=== PATIENT | female | born 1980 | race Caucasian/White ===

== ENCOUNTER 2017-08-26 12:00 | Outpatient (RCR) | payer OTHER, SELFPAY ==
--- NOTE | 2017-08-26 13:49 | HP.PTEVAL_ITS ---
Patient's Visit Information STEFFANY SMITH is a 36 year old F referred to Physical Therapy by Jaret Majano with a diagnosis of Foot. Date of Evaluation: 08/26/17 Physical Therapist: Jaylene Tenorio - Visit Plan Frequency: 1x/Week Duration: 4 Weeks Plan: Orthotics - Subjective Subjective: Bilateral foot pain for 1 year- both feet are the same. Has worn over the counter orthotics but never had them custom made. Pain is mostly in the heel on the bottom. Pain is walking, running and working. 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 Wears [place] and [place] running shoes. Runs 4 days a week 6 miles at a time. Changes shoes 1x a year. Road running mostly. Worst: 5/10 Best: 0/10 Eases: morning after she has been off her feet all day. Is not dong any strength training just running. Here today just for orthotics. pmhx: none Meds: none. Has had x-rays of the feet. - Objective Posture: FH, RS- can correct with VC's. Gait: no deviation but does have increase pronation. SLS: 30 sec no LOB but does have increased muscle activation. HR/TR: WNL. ROM: WNL. Strength: Core: fair, Hip: 4-/5 throughout , Knee: 5/5, Ankle: 5/5 - Goals Goal 1:: Patient will be I with HEP and progression Goal Time Frame: 4-6 Weeks Goal 2:: Patient will demo 4+/5 in her hips with HEP Goal Time Frame: 4-6 Weeks Goal 3:: Patient will be fit with appropriate orthotics Goal Time Frame: 4-6 Weeks - Rehabilitation Potential Physical Therapy Diagnosis: Patient presents with hypomobility- she has decreased hip/core strength and pes planus Rehabilitation Potential: Good - Anticipated Interventions Patient/Client Instruction: Educate patient on: Benefits of Fitness Program For the Purpose of:: To increase tolerance to activity/condition/position Therapeutic Exercise to Include: Strength training, Endurance training, Balance training, Agility training, Body mechanics, Postural training, Flexibilty training, Gait and locomotor training, Dynamic Lumbar Stabilization, Scapular Strength/Stabilization For the Purpose of:: To improve muscle performance and motor function Orthotics: Shoe insert Thank you for the opportunity to evaluate your patient. For Medicare and Medicare HMO plans, please review the plan of care and approve it. It will need to be FAXED BACK to us at [phone] for Medicare purposes. Please let me know if there are questions or concerns regarding this plan of care. Physician Signature: Date:
--- NOTE | 2018-02-23 14:57 | HP.PT.NRP ---
HP - Discharge Summary (1) - Patient Information STEFFANY SMITH was seen in my office for initial evaluation on 08/26/17. The following Plan of Care was established for this patient: Initial Frequency: 1x/Week Initial Duration: 4 Weeks - Anticipated Interventions Patient/Client Instruction: Educate patient on: Benefits of Fitness Program For the Purpose of:: To increase tolerance to activity/condition/position Therapeutic Exercise to Include: Strength training, Endurance training, Balance training, Agility training, Body mechanics, Postural training, Flexibilty training, Gait and locomotor training, Dynamic Lumbar Stabilization, Scapular Strength/Stabilization For the Purpose of:: To improve muscle performance and motor function Orthotics: Shoe insert This patient was last seen in our office . Pertinent comments regarding their Physical therapy will appear below: Pt was last seen on the date of 08/26/17 for the fitting of her orthotics. Pt has not returned through todays date, and is therefore discharged at this time. At this point I will be discontinuing this patient from physical therapy. I would be happy to see this patient again in the future if found appropriate by the physician. Thank you! Jose G Kapoor, PT,
== END 2017-09-30 19:00 | disposition home or self-care (01) ==
LOC: PT 13:09
PROVIDERS: Family Provider Student in an Organized Health Care Education/Training Program; PCP Student in an Organized Health Care Education/Training Program; Visit Provider Internal Medicine
DX: M72.2 Plantar fascial fibromatosis (principal); M21.41 Flat foot [pes planus] (acquired), right foot; M21.42 Flat foot [pes planus] (acquired), left foot
CPT/HCPCS: 97110; 97161; 97760; 97762

== ENCOUNTER → 2018-02-28 14:34 | Outpatient (CLI) | payer OTHER, SELFPAY ==
[2018-02-28 16:40] LABS: Absolute Lymphocyte Count 1.47 X10^3/ul (0.83-4.51); Absolute Neutrophil Count 4.3 X10^3/uL (2.0-7.7); Basophil# 0.02 X10^3/uL; Basophil% 0.3 % (0-1); Eosinophil# 0.05 X10^3/uL; Eosinophils% 0.8 % (0-5); Hematocrit 39.3 % (37-47); Hemoglobin 13.2 g/dl (12.0-15.0); Lymphocyte # 1.47 X10^3/ul (4.0); Lymphocyte % 23.9 % (19-41); Mean Corp Hgb Conc 33.6 g/gl (32-36); Mean Corpuscular Hgb 29.5 pg (27.0-32.0); Mean Corpuscular Volume 87.9 fL (81-99); Mean Platelet Vol. 11.2 fl (6.2-12.0); Monocyte# 0.28 X10^3/uL; Monocyte% 4.6 % (0-10); Neutrophil # 4.32 X10^3/uL (2.7-7.7); Neutrophil % 70.2 % (47-70); Platelet Count 177 K/mm3 (150-450); RBC Distribution Width CV 12.6 % (11.6-14.6); RBC Distribution Width SD 39.5 fl (35.1-43.9); Red Blood Count 4.47 M/mm3 (4.2-5.4); White Blood Count 6.2 K/mm3 (4.4-11.0)
[2018-02-28 16:58] LABS: POSITIVE COUNT NO; POSITIVE DIFFERENTIAL NO; POSITIVE MORPHOLOGY NO
[2018-02-28 17:23] LABS: T4 Free Direct 0.96 ng/dL (0.76-1.46); Thyroid Stim Hormone (TSH) 1.16 uIU/mL (0.358-3.74)
[2018-02-28 17:26] LABS: T3 Total - Triiodothyronine 0.98 ng/mL (0.6-1.81)
[2018-03-01 06:41] LABS: ALB/GLOB Ratio 1.5 RATIO (0.9-2.4); AST(SGOT) 13 U/L (15-37); Alanine Aminotransfer ALT/SGPT 16 U/L (13-56); Albumin, Serum 4.6 g/dL (3.2-5.0); Alkaline Phosphatase 52 U/L (45-117); Anion Gap 8 (5-15); BUN 10 mg/dL (7-18); BUN/Creat Ratio 15.3 RATIO (10-20); Calcium,Total 9.1 mg/dL (8.5-10.1); Chloride 102 mmol/L (98-107); Creatinine, Serum 0.65 mg/dL (0.55-1.02); EST Glomerular Filtration Rate 109 mL/min (>60); Est Glom Filt Rate - Afr Amer 132 mL/min (>60); Globulin 3.1 g/dL (2.2-4.2); Glucose 99 mg/dL (74-106); Potassium 3.8 mmol/L (3.5-5.1); Protein, Total 7.7 g/dL (6.4-8.2); Sodium Level 139 mmol/L (136-145)
== END ==
PROVIDERS: Family Provider Student in an Organized Health Care Education/Training Program; PCP Student in an Organized Health Care Education/Training Program
DX: G56.03 Carpal tunnel syndrome, bilateral upper limbs (principal); R07.9 Chest pain, unspecified; R00.2 Palpitations; E04.1 Nontoxic single thyroid nodule
CPT/HCPCS: 36415; 80053; 84439; 84443; 84480; 85025

== ENCOUNTER → 2018-03-02 11:38 | Outpatient (CLI) | payer OTHER, SELFPAY | PROVIDERS: Family Provider Student in an Organized Health Care Education/Training Program; PCP Student in an Organized Health Care Education/Training Program | DX: R07.9 Chest pain, unspecified (principal); R94.31 Abnormal electrocardiogram [ECG] [EKG]; I44.0 Atrioventricular block, first degree; I34.1 Nonrheumatic mitral (valve) prolapse; R00.2 Palpitations | CPT/HCPCS: 93225; 93226 ==

== ENCOUNTER → 2018-04-29 11:07 | Outpatient (CLI) | payer OTHER, SELFPAY ==
--- NOTE | 2018-04-29 11:07 | DT_ITS ---
This patient was seen during an EMR downtime April 25, 2018 - May 02, 2018. This patient may have a combination of paper and electronic documentation or all paper documentation. All documentation is viewable within the e-chart portion of [facility] for each patient visit.
--- NOTE | 2018-04-29 11:09 | ECHOD_ITS ---
Reason For Study: Murmur Procedure This was a 2D Doppler, Color Flow transthoracic echocardiogram. Exam performed in department. Left Ventricle Normal LV size. Left ventricular systolic function is normal. The estimated ejection fraction is 55 %. No evidence for diastolic dysfunction. No regional wall motion abnormalities noted. Right Ventricle Normal RV size. Normal systolic function. Atria Normal left atrium. Normal right atrium. Mitral Valve Normal mitral valve. Trivial eccentric mitral valve insufficiency. Tricuspid Valve Normal tricuspid valve. Mild tricuspid valve insufficiency. Aortic Valve Normal aortic valve. Trisinus/trileaflet aortic valve. Pulmonic Valve Normal pulmonic valve. Great Vessels Normal aortic root. The pulmonary artery is normal size. Normal inferior vena cava. Pericardium/Pleural No pericardial effusion. MMode/2D Measurements & Calculations LVIDd: 4.5 cm IVSd: 0.69 cm Ao root diam: 3.3 cm LVIDs: 3.2 cm LVPWd: 0.84 cm LA dimension: 3.1 cm RVDd: 3.7 cm FS: 28.6 % LAV(MOD-bp): 48.9 ml LA A4 area: 16.7 cm2 RA A4 area: 16.2 cm2 LAV(MOD-bp) Indexed: 29.1 ml/m2 LAV(MOD-sp2): 52.4 ml LAV(MOD-sp4): 44.6 ml Time Measurements MV dec time: 0.20 sec Doppler Measurements & Calculations MV E max yobany: 82.2 cm/sec Lat Peak E' Yobany: 13.2 cm/sec Med Peak E' Yobany: 9.5 cm/sec MV A max yobany: 65.4 cm/sec E/E' lat: 6.2 E/E' med: 8.7 MV E/A: 1.3 MV V2 max: 90.7 cm/sec Ao V2 max: 107.7 cm/sec LV V1 max: 98.9 cm/sec MV max P.3 mmHg Ao max P.6 mmHg LV V1 max P.9 mmHg MV V2 mean: 54.3 cm/sec MV mean P.4 mmHg MV V2 VTI: 22.9 cm PA V2 max: 100.0 cm/sec TR max yobany: 212.0 cm/sec TR max P.0 mmHg Interpretation Summary Normal LV size. Left ventricular systolic function is normal. The estimated ejection fraction is 55 %. No evidence for diastolic dysfunction. Trivial eccentric mitral valve insufficiency. Ordering Physician: Jesus Galvan Referring Physician: Wilmar Brown Performed By: Ethan Espinosa RCS
== END ==
PROVIDERS: Family Provider Student in an Organized Health Care Education/Training Program; PCP Student in an Organized Health Care Education/Training Program; Visit Provider Internal Medicine Cardiovascular Disease
DX: I34.1 Nonrheumatic mitral (valve) prolapse (principal)
CPT/HCPCS: 93306

== ENCOUNTER 2018-09-05 13:30 | Outpatient (RCR) | payer OTHER, SELFPAY ==
--- NOTE | 2017-12-22 14:52 | MASS.EVAL ---
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 She was referred by Dr. Brown with a diagnosis of migraines and neck muscle spasms. She presents today with symptoms of tension and aching through the neck and shoulders. She reports an increase in headaches the last few weeks. She lists no medications Goals: Decrease muscle pain and tension Decrease frequency and intensity of migraines and headaches Relaxation Treatment consisted of a one hour deep tissue massage to the upper body focusing on the neck and shoulders. She had very high tension throughout. The scalp muscles were very ropy, especially temporalis. Knots present in trapezius and rhomboids. The patient responds well to massotherapy. There was a decrease in muscle tension after treatment. I plan on seeing her one time a month or on an as needed basis for a total of 10 one hour sessions of kelly throught 2018. Jenny Daniels. T
--- NOTE | 2018-04-27 12:15 | DT_ITS ---
This patient was seen during an EMR downtime April 25, 2018 - May 02, 2018. This patient may have a combination of paper and electronic documentation or all paper documentation. All documentation is viewable within the e-chart portion of [facility] for each patient visit.
--- NOTE | 2018-11-10 11:42 | MASS.DISCH ---
Massage Therapy Discharge Summary: Initial Evaluation: 12/22/2017 Diagnosis: Migraines No. of Visits: Date of last visit: 09/05/2018 Goals: Decerased frequency and intensity of migraines This patient is being discharged from our care at the [facility]. Thank you, Jenny Daniels LMT
== END 2018-09-05 19:00 | disposition home or self-care (01) ==
LOC: MASS 13:30
PROVIDERS: Family Provider Student in an Organized Health Care Education/Training Program; PCP Student in an Organized Health Care Education/Training Program; Visit Provider Student in an Organized Health Care Education/Training Program
DX: G43.119 Migraine with aura, intractable, without status migrainosus (principal); M62.838 Other muscle spasm
CPT/HCPCS: 97124

== ENCOUNTER → 2019-07-26 12:17 | Outpatient (CLI) | payer OTHER, SELFPAY ==
[2018-11-03 13:42] VITALS: BMI 23.8
[2019-07-26 12:40] LABS: Bacteria 0 SEEN /hpf (None Seen); Mucous, Urine 0 SEEN /hpf (<or=2+); Red Blood Cells-Urine 0 SEEN /hpf (0-5)
[2019-07-26 13:28] LABS: Color, Urine Yellow (Yellow); Glucose, Dipstick Normal (Normal); Ketone-Dipstick 5 mg/dl (Negative); Leukocyte Esterase-Dipstick Negative /ul (Negative); Nitrite-Dipstick Negative (Negative); Occult Blood-Urine 50 /ul (Negative); Protein-Dipstick Negative (Negative); Urine Bilirubin Dipstick Negative (Negative); Urine Clarity Clear (Clear); Urine Urobilinogen Normal (Normal)
[2019-07-26 13:34] LABS: Squamous Epithelial Cells - UA 0-5 SEEN /hpf (5-10)
[2019-07-26 13:35] LABS: White Blood Cells 0-5 SEEN /hpf (0-5)
[2019-07-26 13:57] LABS: Microalbumin,Random Urine < 5.0 mg/L (NO RANGE EST.)
[2019-07-26 14:03] LABS: Free T3 2.6 pg/mL (2.18-3.98); T4 Free Direct 0.98 ng/dL (0.76-1.46); Thyroid Stim Hormone (TSH) 0.86 uIU/mL (0.358-3.74)
[2019-07-27 20:07] LABS: Albumin 4.1 g/dL (2.9-4.4); Alpha-1-Globulins 0.2 g/dL (0.0-0.4); Alpha-2-Globulins 0.7 g/dL (0.4-1.0); Immunoglobulin G 882 mg/dL (700-1600); Immunoglobulin M 49 mg/dL (26-217); PROEL- TOTAL PROTEIN 7.1 g/dL (6.0-8.5)
[2019-07-28 12:28] LABS: Immunoglobulin A 41 mg/dL (87-352)
[2019-07-28 12:29] LABS: Thyroid Peroxidase AB 8 IU/mL (0-34)
== END ==
PROVIDERS: Family Provider Student in an Organized Health Care Education/Training Program; PCP Student in an Organized Health Care Education/Training Program; Referring Provider Student in an Organized Health Care Education/Training Program; Visit Provider Student in an Organized Health Care Education/Training Program
DX: R63.5 Abnormal weight gain (principal); D72.818 Other decreased white blood cell count
CPT/HCPCS: 36415; 81001; 82043; 82570; 82784; 84165; 84439; 84443; 84481; 86334; 86376

== ENCOUNTER → 2019-10-05 12:42 | Outpatient (CLI) | payer OTHER, SELFPAY ==
[2018-11-03 13:42] VITALS: BMI 23.8
--- NOTE | 2019-10-05 12:44 | BI_ITS ---
MAMMOGRAPHY - BILATERAL SCREENING REASON FOR EXAM: Female, 38 years old. Routine annual screening examination. PERTINENT HISTORY: Mother with breast cancer. TECHNIQUE: Digital bilateral breast kev (3D mammographic acquisition) in the CC and MLO projections. 2-D mediolateral oblique (MLO) and craniocaudad (CC) views of both breasts were obtained. CAD: Full Field Digital Mammography with Computer Added Detection was performed. COMPARISON: None. Baseline examination. FINDINGS: Breast Composition: The breasts are extremely dense, which lowers the sensitivity of mammography. There are no dominant masses or suspicious calcifications. No other significant abnormalities are identified. BI/SCREEN MAMM (CAD) W/KEV BILAT IMPRESSION: Negative screening mammogram. Yearly followup mammogram recommended. (A) ASSESSMENT CATEGORY: BIRADS Category 1: Negative. A letter regarding these results will be sent to the patient by the facility within 30 days. Approximately 10% of breast cancers are not detected by mammography. A normal mammogram should not delay biopsy of a clinically suspicious abnormality. [id number] Electronically Signed: Jarrell Presley, at 14:08 EST , Service support ,
== END ==
PROVIDERS: Family Provider Student in an Organized Health Care Education/Training Program; PCP Student in an Organized Health Care Education/Training Program; Referring Provider Student in an Organized Health Care Education/Training Program; Visit Provider Student in an Organized Health Care Education/Training Program
DX: Z12.31 Encounter for screening mammogram for malignant neoplasm of breast (principal); Z80.3 Family history of malignant neoplasm of breast
CPT/HCPCS: 77063; 77067

== ENCOUNTER → 2019-10-05 15:20 | Outpatient (CLI) | payer OTHER, SELFPAY ==
[2018-11-03 13:42] VITALS: BMI 23.8
--- NOTE | 2019-10-05 15:22 | RAD_ITS ---
STUDY: X-RAY - LEFT FOOT CLINICAL: Female, 38 years old. Pain in the arch region. TECHNIQUE: 3 view(s) of the foot. COMPARISON: None. FINDINGS: There is a plantar calcaneal spur otherwise normal talus, calcaneus, and tarsal bones. Normal visualized subtalar, talonavicular, calcaneocuboid, tarsal and tarsometatarsal articulations. Normal metatarsi. Normal metatarsophalangeal joint of the great toe. Normal tibial and fibular sesamoid bones. Normal interphalangeal joint of the great toe. Normal phalanges of the great toe. Normal second through fifth metatarsophalangeal joints. Normal interphalangeal joints and phalanges of the lesser toes. The soft tissue structures are unremarkable. There is no demonstrated fracture. RAD/Foot min 3 Views IMPRESSION: Plantar calcaneal spur, otherwise normal x-ray examination of the foot. Electronically Signed: Kelly Johnson MD at 3:05 EST , Service support ,
--- NOTE | 2019-10-05 15:22 | RAD_ITS ---
STUDY: X-RAY - RIGHT FOOT CLINICAL: Female, 38 years old. Pain in the arch area. TECHNIQUE: 3 view(s) of the foot. COMPARISON: None. FINDINGS: Normal talus, calcaneus, and tarsal bones. Normal visualized subtalar, talonavicular, calcaneocuboid, tarsal and tarsometatarsal articulations. Normal metatarsi. Normal metatarsophalangeal joint of the great toe. Normal tibial and fibular sesamoid bones. Normal interphalangeal joint of the great toe. Normal phalanges of the great toe. Normal second through fifth metatarsophalangeal joints. Normal interphalangeal joints and phalanges of the lesser toes. The soft tissue structures are unremarkable. There is no demonstrated fracture. RAD/Foot min 3 Views IMPRESSION: Unremarkable x-ray examination of the foot. Electronically Signed: Kelly Johnson MD at 3:06 EST , Service support ,
== END ==
PROVIDERS: Family Provider Student in an Organized Health Care Education/Training Program; PCP Student in an Organized Health Care Education/Training Program; Referring Provider Podiatrist; Visit Provider Podiatrist
DX: M72.2 Plantar fascial fibromatosis (principal); M79.671 Pain in right foot; M79.672 Pain in left foot
CPT/HCPCS: 73630

== ENCOUNTER 2019-11-02 11:45 | Outpatient (RCR) | payer OTHER, SELFPAY ==
--- NOTE | 2018-12-19 15:11 | MASS.EVAL ---
Massage Therapy Evaluation: Initial Evaluation Date: 12/19/2018 /Age: 12 1980, 38 Diagnosis: Migraines Medications: None Goals: Decrease frequency and intensity of migraines and headaches Decrease neck and shoulder tenision Promote relaxation Plan: To be seen one time per month or PRN for a total of 10 visits
--- NOTE | 2019-11-08 06:57 | DS.PCM_ITS ---
Massage Therapy Discharge Summary: Initial Evaluation Date: 12/19/2018 Diagnosis: Migraines No. of Visits: Date of last visit: 11/02/2019 Goals: Decreased frequency and intensity of migraines and decreased neck tension achieved. This patient is being discharged from our care at the [facility]. Thank you, Jenny Daniels LMT
== END 2019-11-02 19:00 | disposition home or self-care (01) ==
LOC: MASS 11:45
PROVIDERS: Family Provider Student in an Organized Health Care Education/Training Program; PCP Student in an Organized Health Care Education/Training Program; Referring Provider Student in an Organized Health Care Education/Training Program; Visit Provider Student in an Organized Health Care Education/Training Program
DX: G43.119 Migraine with aura, intractable, without status migrainosus (principal)
CPT/HCPCS: 97124

== ENCOUNTER → 2020-01-31 12:41 | Outpatient (CLI) | payer OTHER, SELFPAY ==
[2018-11-03 13:42] VITALS: BMI 23.8
--- NOTE | 2020-01-31 12:47 | MRI_ITS ---
STUDY: MRI BRAIN WITH AND WITHOUT CONTRAST REASON FOR EXAM: Female, 39 years old. H/A, fatigue, bilat hand weakness TECHNIQUE: Standardized multiplanar fat and water weighted pulse sequences were obtained. IV Dotarem 12 ml was administered for the contrast portion of the examination. COMPARISON: None. FINDINGS: Normal size of the ventricles and extra-axial spaces for the patient''s age. Normal white matter tracts of the supratentorial brain. There is no evidence for recent intracranial ischemia or other cause of cytotoxic edema on diffusion weighted imaging (DWI). Normal T2* images of the brain without demonstrated susceptibility artifact. There is no demonstrated hemosiderin stain. There are no white matter hyperintensities. Specifically, there are no focal areas of white matter gliosis which are occasionally associated with vasospastic migraine headaches. Normal bilateral basal ganglia. Normal thalami. There is no extra-axial fluid accumulation. Normal flow voids within the major intracranial circulation suggesting patency by spin echo criteria. Normal venous enhancement. There is no enhancing intra-axial or extra-axial abnormality. Normal sella turcica, pituitary gland, infundibular stalk, optic chiasm and hypothalamus. Normal tectal plate and pineal gland. Normal midbrain, payal and medulla. Normal cerebellum. Normal basal cisterns. Normal bilateral temporal bones. Normal bilateral internal auditory canals. No demonstrated orbital abnormality, within the constraints of a routine brain study. Normal visualized paranasal sinuses. Normal calvarium and skull base. Normal visualized soft tissue structures. Normal visualized upper cervical spine. MRI/Brain W/WO Contrast IMPRESSION: Normal unenhanced and enhanced MRI of the brain. Electronically Signed: Dragan Weiss DO at 14:36 EDT Tel , Service support ,
== END ==
PROVIDERS: PCP Student in an Organized Health Care Education/Training Program; Referring Provider Student in an Organized Health Care Education/Training Program; Visit Provider Student in an Organized Health Care Education/Training Program
DX: G44.89 Other headache syndrome (principal); R53.81 Other malaise; R29.898 Other symptoms and signs involving the musculoskeletal system; H53.9 Unspecified visual disturbance; R41.89 Other symptoms and signs involving cognitive functions and awareness
CPT/HCPCS: 70553; A9575

== ENCOUNTER → 2020-02-06 09:08 | Outpatient (CLI) | payer OTHER, SELFPAY ==
[2018-11-03 13:42] VITALS: BMI 23.8
[2020-02-06 10:26] LABS: Absolute Lymphocyte Count 1.64 X10^3/uL (0.83-4.51); Absolute Neutrophil Count 2.2 X10^3/uL (2.0-7.7); Basophil# 0.05 X10^3/uL; Basophil% 1.2 % (0-1); Eosinophils% 4.6 % (0-5); Hematocrit 38.8 % (37-47); Lymphocyte # 1.64 X10^3/ul (4.0); Lymphocyte % 37.9 % (19-41); Mean Corp Hgb Conc 33.5 g/dL (32-36); Mean Corpuscular Volume 89.6 fL (81-99); Mean Platelet Vol. 11.1 fl (6.2-12.0); Monocyte# 0.27 X10^3/uL; Monocyte% 6.2 % (0-10); NRBC Flagged by Analyzer 0 % (0-5); Neutrophil # 2.16 X10^3/uL (2.7-7.7); Neutrophil % 49.9 % (47-70); Platelet Count 188 K/mm3 (150-450); RBC Distribution Width CV 12.7 % (11.6-14.6); Red Blood Count 4.33 M/mm3 (4.2-5.4); White Blood Count 4.3 K/mm3 (4.4-11.0)
[2020-02-06 10:59] LABS: Vitamin B12 659 pg/mL (211-911); Vitamin D,25 Hydroxy 25.2 ng/mL
[2020-02-06 11:15] LABS: ALB/GLOB Ratio 1.4 RATIO (0.9-2.4); AST(SGOT) 15 U/L (15-37); Alanine Aminotransfer ALT/SGPT 24 U/L (13-56); Albumin, Serum 4.4 g/dL (3.2-5.0); Alkaline Phosphatase 59 U/L (45-117); Anion Gap 6 (5-15); BUN 17 mg/dL (7-18); BUN/Creat Ratio 23.7 RATIO (10-20); CPK Total, Creatine Kinase 85 U/L (26-192); Calcium,Total 9.2 mg/dL (8.5-10.1); Chloride 107 mmol/L (98-107); Creatinine, Serum 0.72 mg/dL (0.55-1.02); EST Glomerular Filtration Rate 97 mL/min (>60); Est Glom Filt Rate - Afr Amer 117 mL/min (>60); Free T3 3.3 pg/mL (2.18-3.98); Globulin 3.1 g/dL (2.2-4.2); Glucose 108 mg/dL (74-106); Potassium 4.1 mmol/L (3.5-5.1); Protein, Total 7.5 g/dL (6.4-8.2); Sodium Level 138 mmol/L (136-145); T4 Free Direct 0.88 ng/dL (0.76-1.46); Thyroid Stim Hormone (TSH) 1.52 uIU/mL (0.358-3.74)
[2020-02-07 14:07] LABS: RNP Ab <0.2 AI (0.0-0.9)
[2020-02-07 17:44] LABS: Smith Ab <0.2 AI (0.0-0.9)
== END ==
LOC: LAB.FUTURE 09:14 → LAB 02-07 06:08
PROVIDERS: PCP Student in an Organized Health Care Education/Training Program; Referring Provider Student in an Organized Health Care Education/Training Program; Visit Provider Student in an Organized Health Care Education/Training Program
DX: L67.8 Other hair color and hair shaft abnormalities (principal); M25.50 Pain in unspecified joint; Z82.0 Family history of epilepsy and other diseases of the nervous system
CPT/HCPCS: 36415; 80053; 82306; 82550; 82607; 84439; 84443; 84481; 85025; 86235

== ENCOUNTER 2020-09-18 13:30 | Outpatient (RCR) | payer OTHER, SELFPAY ==
[2018-11-03 13:42] VITALS: BMI 23.8
--- NOTE | 2019-12-20 14:46 | MASS.EVAL ---
Massage Therapy Evaluation: Initial Evaluation Date: 12/20/2019 /Age: 12 1980, 39 Diagnosis: Migraines Goals: Decrease frequency and intensity of migraines Decrease muscle pain and tension Decrease stress Assessment: This patient is a good candidate for massage. We have had success controlling her symptoms in the past. Plan: To be seen one time per month or PRN
--- NOTE | 2020-11-13 14:03 | DS.PCM_ITS ---
Massage Therapy Discharge Summary: Initial Evaluation Date: 12/20/2019 Diagnosis: Migraines No. of Visits: 7 Date of last visit: 09/18/2020 This patient is being discharged from our care at the [facility]. Thank you, Jenny Daniels LMT
== END 2020-09-18 19:00 | disposition home or self-care (01) ==
LOC: MASS 13:30
PROVIDERS: Family Provider Student in an Organized Health Care Education/Training Program; PCP Student in an Organized Health Care Education/Training Program; Referring Provider Student in an Organized Health Care Education/Training Program; Visit Provider Student in an Organized Health Care Education/Training Program
DX: G43.819 Other migraine, intractable, without status migrainosus (principal)
CPT/HCPCS: 97124

== ENCOUNTER → 2020-12-26 13:10 | Outpatient (CLI) | payer OTHER, SELFPAY ==
[2018-11-03 13:42] VITALS: BMI 23.8
--- NOTE | 2020-12-26 13:16 | RAD_ITS ---
STUDY: X-RAY - RIGHT FOOT CLINICAL: Female, 40 years old. Arch of foot pain for one year. TECHNIQUE: 3 view(s) of the foot. COMPARISON: None. FINDINGS: Inferior calcaneal spur. Normal visualized subtalar, talonavicular, calcaneocuboid, tarsal and tarsometatarsal articulations. Normal metatarsi. Mild arthrosis of the first MTP joint Normal tibial and fibular sesamoid bones. Normal interphalangeal joint of the great toe. Normal phalanges of the great toe. Normal second through fifth metatarsophalangeal joints. Normal interphalangeal joints and phalanges of the lesser toes. The soft tissue structures are unremarkable. 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 No other abnormality. Electronically Signed: Varun Hooper MD at 13:41 EST , Service support ,
--- NOTE | 2020-12-26 13:16 | RAD_ITS ---
STUDY: X-RAY - LEFT FOOT CLINICAL: Female, 40 years old. Arch of foot pain for one year. TECHNIQUE: 3 view(s) of the foot. COMPARISON: None. FINDINGS: Inferior calcaneal spur. Normal visualized subtalar, talonavicular, calcaneocuboid, tarsal and tarsometatarsal articulations. Normal metatarsi. Mild arthrosis of the first MTP joint Normal tibial and fibular sesamoid bones. Normal interphalangeal joint of the great toe. Normal phalanges of the great toe. Normal second through fifth metatarsophalangeal joints. Normal interphalangeal joints and phalanges of the lesser toes. The soft tissue structures are unremarkable. 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 No other abnormality. Electronically Signed: Varun Hooper MD at 13:41 EST , Service support ,
== END ==
PROVIDERS: PCP Student in an Organized Health Care Education/Training Program; Referring Provider Podiatrist; Visit Provider Podiatrist
DX: M19.072 Primary osteoarthritis, left ankle and foot (principal); M19.071 Primary osteoarthritis, right ankle and foot; M77.32 Calcaneal spur, left foot; M77.31 Calcaneal spur, right foot
CPT/HCPCS: 73630

== ENCOUNTER → 2021-02-10 12:29 | Outpatient (CLI) | payer OTHER, SELFPAY ==
[2021-01-23 11:56] VITALS: BMI 21.4
--- NOTE | 2021-02-10 12:33 | STE_ITS ---
Reason For Study: CHEST PAIN Stress Results Protocol: Cr Protocol Maximum Predicted HR: 182 bpm Target HR: 155 bpm % Maximum Predicted HR: 95 % DurationHeart Rate Stage (mm:ss) (bpm) BP BASELINE 73 108/70 STAGE 1 3:00 113 122/70 STAGE 2 3:00 141 150/86 STAGE 3 3:00 150 142/78 STAGE 4 3:00 162 150/74 STAGE 5 1:00 173 / RECOVERY 112 110/80 Stress Duration: 13:00 mm:ss Maximum Stress HR: 173 bpm Baseline Echocardiogram Findings Stress Echo Wall motion Data Resting WM Intermediate WM Stress WM Interpretation Summary Stress echocardiogram. 40-year-old lady with a history of palpitations. Stress protocol: Resting EKG demonstrates normal sinus rhythm with a rate of 74 bpm normal intervals are noted resting blood pressure is 180/70 mmHg. The patient exercised according to regular Cr protocol for a total duration of 13 minutes. Patient completed 1 minute into stage V of the Cr protocol. The maximum heart rate attained was 176 bpm which was 96% of max impacted heart rate the maximum workload was 17.2 metabolic equivalents. At rest there were no ST or T wave changes noted to suggest ischemia at peak exercise nonspecific ST changes were noted. This did not meet the criteria for ischemia. The peak blood pressure was 150/86 mmHg which was a good blood pressure response to exercise. No clinical angina was noted the test was terminated due to the target heart rate being achieved. Stress echocardiogram. Resting echocardiographic images demonstrated preserved left ventricular systolic function. The estimated ejection fraction at rest was 55%. At peak exercise there was thickening of all gaytan and reduction of left ventricular cavity size with peaking of ejection fraction is 65%. No wall motion abnormalities were noted. Conclusion: Normal exercise myocardial perfusion stress test with no evidence of ischemia. Preserved ejection fraction at rest and with exercise. Ordering Physician: Jesus Galvan MD Referring Physician: Jesus Galvan Performed By: Sumanth, Moira, RDCS
[2021-02-10 14:32] LABS: Erythrocyte Sedimentation Rate 4 mm/hr (0-30)
[2021-02-10 14:52] LABS: CRP < 2.90 mg/L (0.0-3.0); Rheumatoid Factor < 10.0 IU/mL (<15)
[2021-02-12 16:50] LABS: ANTINUCLEAR ANTIBODIES DIRECT Negative (Negative)
[2021-02-14 05:12] LABS: CCP IgG Antibodies 4 units (0-19)
== END ==
PROVIDERS: Nurse Practitioner Family; PCP Student in an Organized Health Care Education/Training Program; Referring Provider Internal Medicine Cardiovascular Disease; Visit Provider Internal Medicine Cardiovascular Disease
DX: R07.9 Chest pain, unspecified (principal); M79.641 Pain in right hand; M79.642 Pain in left hand; R29.898 Other symptoms and signs involving the musculoskeletal system
CPT/HCPCS: 36415; 85652; 86038; 86140; 86200; 86431; 93017; 93350

== ENCOUNTER → 2021-02-27 14:13 | Outpatient (CLI) | payer OTHER, SELFPAY ==
[2021-01-23 11:56] VITALS: BMI 21.4
--- NOTE | 2021-02-27 14:16 | RAD_ITS ---
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 FINDINGS: No acute fracture or malalignment. No blastic or lytic lesions. No degenerative changes are seen. The soft tissues are unremarkable. RAD/Hand Min 3 Views IMPRESSION: No acute radiographic abnormalities. Electronically Signed: Reji Kim MD at 22:16 EDT Tel , Service support ,
--- NOTE | 2021-02-27 14:17 | RAD_ITS ---
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 FINDINGS: No acute fracture or malalignment. No blastic or lytic lesions. No degenerative changes are seen. The soft tissues are unremarkable. RAD/Hand Min 3 Views IMPRESSION: No acute radiographic abnormalities. Electronically Signed: Reji Kim MD at 22:16 EDT Tel , Service support ,
== END ==
PROVIDERS: PCP Student in an Organized Health Care Education/Training Program; Referring Provider Nurse Practitioner Family; Visit Provider Nurse Practitioner Family
DX: M25.50 Pain in unspecified joint (principal); M79.641 Pain in right hand; M79.642 Pain in left hand; R29.898 Other symptoms and signs involving the musculoskeletal system
CPT/HCPCS: 73130

== ENCOUNTER 2021-04-16 11:00 | Outpatient (RCR) | payer OTHER, SELFPAY ==
[2021-01-23 11:56] VITALS: BMI 21.4
--- NOTE | 2021-02-10 16:52 | HP.PTEVAL_ITS ---
Patient's Visit Information STEFFANY SMITH is a 40 year old F referred to Physical Therapy by Dr. Ravi Ricardo DPM with a diagnosis of Bilateral plantar fasciitis. Date of Evaluation: 02/10/21 Physical Therapist: Leonid Watson DPT - Visit Plan Frequency: 2x /Week Duration: 4 Weeks Plan: Decrease pain and inflammation bilaterally of plantar fascia, increase strength of posterior tibialis, stretching of gastrocnemius/soleus, foam rolling, dry needling, graston - Subjective Pt has bilateral foot pain. Pt is a nurse at [employer]. It doesnt bother her as much when moving but pain is when she standing still for long periods of time. S itting doesnt bother her. Pt. is a runner who averages 8.5 miles 4 days a week. Pain is affecting running but her new running shoes as well as new orthotics from Dr. Ricardo. Pain has been going on for over a year and is now to the point of aggrivation to seek help. Wears a boot at night about half and hour each nigh about 3x a week. Pain is in the heels and arches. Both feet are affected the carmen olea Has morning pain and mid day. - Pain Bilateral heel pain Pain Intensity (Out of 10): 4 Pain Intensity Range: 2, 5 - Objective ROM: Pain with inverison R foot; R 0-2 degrees; L 0-6 degrees PROM. MMT: R dorsi: 5/5 plantarflex: 5/5 Inversion 4-/5, eversion 4+/5; L dorsi: 5/5, plantarflex 5/5, inversion 4-/5, eversion 4+/5; Bilateral heel raise WNL no pain, L SHR WNL some heel inversion, R SHR WNL. Neuro: sensation and reflexes WNL bilaterally. Palpation: R medial arch pain with palpation and L sided medial arch pain with palpation. pain at post tib tendon insertion Left foot. Gait: L sided heel inversion with gait and some pronation in stance phase bilateral. Observation: She has an arch in standing and with walking. no pes planus. - Goals Goal 1:: Decrease pain bilaterally by 50% when running. Goal Time Frame: 2-4 Weeks Goal 2:: Increase ankle dorsiflexion bilateraly by 8 degrees with calf stretching. Goal Time Frame: 2-4 Weeks Goal 3:: Decrease pain by 50% bilaterally during 12 hour work shift. Goal Time Frame: 2-4 Weeks Goal 4:: Increase strength of posterior tibilais on left side by 1 muscle grade. Goal Time Frame: 4-6 Weeks - Rehabilitation Potential Physical Therapy Diagnosis: Bilateral heel pain secondary to plantar fasciitis Rehabilitation Potential: Excellent - Anticipated Interventions Patient/Client Instruction: Educate patient on: Condition, Plan of Care For the Purpose of:: To decrease pain, To decrease swelling/inflammation, To improve self management Therapeutic Exercise to Include: Strength training, Balance training For the Purpose of:: To increase ROM, To improve balance Functional Training to Include: Functional sports training Comments: Running For the Purpose of:: To decrease pain, To improve muscle performance and motor function Manual Therapy Techniques to Include: Functional dry needling For the Purpose of:: To decrease pain Thank you for the opportunity to evaluate your patient. For Medicare and Medicare HMO plans, please review the plan of care and approve it. It will need to be FAXED BACK to us at [phone] for Medicare purposes. For Medicare only, by signing this I certify the plan of care. Please let me know if there are questions or concerns regarding this plan of care. Physician Signature: Date:
--- NOTE | 2021-04-16 12:28 | HP.PTREVAL ---
Dr. Ravi Ricardo, IZABEL, It has been my pleasure to treat STEFFANY SMITH over the last 12 visits for Bilateral plantar fasciitis. Please see the progress note below for an update on the physical therapy plan of care! Subjective: Pt. reports overall doing well. No pain pre treatment today. She had no pain with running yesterday. Pt. is able to work as well with minimal pain. She is overall pleased. Objective/Function: Pt. is overall doing very well. She is back to running without pain and is having very minimal issues if any with working. She has a good HEP working on post tib strengthening, foot intrinsic strengthen and frequent stretching. She is running 8 miles per day with minimal issues. She is able to maintain good arch stability with decreased VCing/instruction to do so with walking. Plan Plan: Pt. to trial HEP on her own for the next few weeks. She is to check back with PT if needed. If I do not hear from her in the next few weeks I will assume all is going well and will DC back to physician at that point in time. Goals Goal 1:: Decrease pain bilaterally by 50% when running. Goal Time Frame: 2-4 Weeks Goal Progress: Goal Met Goal 2:: Increase ankle dorsiflexion bilateraly by 8 degrees with calf stretching. Goal Time Frame: 2-4 Weeks Goal Progress: Goal Met Goal 3:: Decrease pain by 50% bilaterally during 12 hour work shift. Goal Time Frame: 2-4 Weeks Goal Progress: Goal Met Goal 4:: Increase strength of posterior tibilais on left side by 1 muscle grade. Goal Time Frame: 4-6 Weeks Goal Progress: Goal Met Anticipated Interventions Patient/Client Instruction: Educate patient on: Condition, Plan of Care For the Purpose of:: To decrease pain, To decrease swelling/inflammation, To improve self management Therapeutic Exercise to Include: Strength training, Balance training For the Purpose of:: To increase ROM, To improve balance Functional Training to Include: Functional sports training Comments: Running For the Purpose of:: To decrease pain, To improve muscle performance and motor function Manual Therapy Techniques to Include: Functional dry needling For the Purpose of:: To decrease pain Please do not hesitate to contact me at [phone] by phone or if you have questions or concerns regarding this new plan of care! Sincerely, OLIVIA GrissomT
== END 2021-04-16 19:00 | disposition home or self-care (01) ==
LOC: PT 11:00
PROVIDERS: PCP Student in an Organized Health Care Education/Training Program; Referring Provider Podiatrist; Visit Provider Podiatrist
DX: M72.2 Plantar fascial fibromatosis (principal)
CPT/HCPCS: 97035; 97110; 97140; 97161

== ENCOUNTER → 2021-04-22 10:44 | Outpatient (CLI) | payer OTHER, SELFPAY ==
[2021-01-23 11:56] VITALS: BMI 21.4
[2021-04-22 11:54] LABS: Hematocrit 37.7 % (37-47); Hemoglobin 12.7 g/dL (12.0-15.0); Mean Corp Hgb Conc 33.7 g/dL (32-36); Mean Corpuscular Hgb 30.1 pg (27.0-32.0); Mean Corpuscular Volume 89.3 fL (81-99); Mean Platelet Vol. 10.9 fl (6.2-12.0); Platelet Count 197 K/mm3 (150-450); RBC Distribution Width CV 12.6 % (11.6-14.6); RBC Distribution Width SD 41.4 fl (35.1-43.9); Red Blood Count 4.22 M/mm3 (4.2-5.4); White Blood Count 4.4 K/mm3 (4.4-11.0)
[2021-04-22 12:27] LABS: AST(SGOT) 13 U/L (15-37); Alanine Aminotransfer ALT/SGPT 24 U/L (13-56); Albumin, Serum 4.6 g/dL (3.2-5.0); Alkaline Phosphatase 63 U/L (45-117); Bilirubin, Direct 0.12 mg/dL (0.00-0.30); Creatinine, Serum 0.76 mg/dL (0.55-1.02); EST Glomerular Filtration Rate 90 mL/min (>60); Est Glom Filt Rate - Afr Amer 109 mL/min (>60); Protein, Total 7.6 g/dL (6.4-8.2)
[2021-04-23 16:09] LABS: HEPATITIS B SURFACE AG Negative (Negative); Hepatitis A IgM Antibody Negative (Negative); Hepatitis B Core AB IgM Negative (Negative)
[2021-04-23 20:02] LABS: Hep C Antibodies <0.1 s/co ratio (0.0-0.9); Immunoglobulin A 40 mg/dL (87-352); t-Transglutaminase IgA <2 U/mL (0-3)
== END ==
PROVIDERS: PCP Student in an Organized Health Care Education/Training Program; Referring Provider Internal Medicine Rheumatology; Visit Provider Internal Medicine Rheumatology
DX: M25.542 Pain in joints of left hand (principal); M25.541 Pain in joints of right hand
CPT/HCPCS: 80074; 80076; 82565; 82784; 83516; 85027

== ENCOUNTER → 2021-05-21 12:47 | Outpatient (CLI) | payer OTHER, SELFPAY ==
[2021-01-23 11:56] VITALS: BMI 21.4
--- NOTE | 2021-05-21 12:56 | MRI_ITS ---
STUDY: MRI LEFT HAND REASON FOR EXAM: Female, 40 years old. LEFT HAND PAIN INFLAMMATORY ARTHRITIS VS EROSIVE OSTEOARTHRITIS TECHNIQUE: Standardized fat and water weighted pulse sequences were obtained in all 3 orthogonal planes. Incomplete fat suppression is seen at the edge of several of the sequences. COMPARISON: Left hand x-ray dated FEBRUARY 27, 2021 FINDINGS: FIRST DIGIT: There is mild enhancement of the synovium and mild proliferation of the synovium of the distal phalanx of the thumb. There is mild cortical scalloping on the volar aspect of the body of the distal phalanx of the thumb likely due to mild periosteal resorption or erosions. Normal visualized first metacarpus. Normal metacarpophalangeal joint. Normal interphalangeal joint. Normal proximal, and distal phalanges. Normal flexor and extensor tendons. There is no soft tissue abnormality. SECOND DIGIT: Normal visualized second metacarpus. Normal metacarpophalangeal joint. Normal proximal and distal interphalangeal joints. Normal proximal, middle and distal phalanges. Normal flexor and extensor tendons. There is no soft tissue abnormality. THIRD DIGIT: Normal visualized third metacarpus. Normal metacarpophalangeal joint. Normal proximal and distal interphalangeal joints. Normal proximal, middle and distal phalanges. Normal flexor and extensor tendons. There is no soft tissue abnormality. FOURTH DIGIT: Normal visualized fourth metacarpus. Normal metacarpophalangeal joint. Normal proximal and distal interphalangeal joints. Normal proximal, middle and distal phalanges. Normal flexor and extensor tendons. There is no soft tissue abnormality. FIFTH DIGIT: Normal visualized fifth metacarpus. Normal metacarpophalangeal joint. Normal proximal and distal interphalangeal joints. Normal proximal, middle and distal phalanges. Normal flexor and extensor tendons. There is no soft tissue abnormality. No erosions or osteophytes or abnormal enhancement of the soft tissues or bony structures or synovium and the remaining aspects of the left hand. Normal visualized thenar and hypothenar muscles. Normal lumbricalis and interosseous muscles. There are no solid, cystic or lipomatous masses. MRI/Upper Ext No Joint W/WO Cont IMPRESSION: 1. Findings are compatible with inflammatory or reactive arthritis in the thumb -There is mild enhancement of the synovium and mild proliferation of the synovium of the distal phalanx of the thumb. There is mild cortical scalloping on the volar aspect of the body of the distal phalanx of the thumb likely due to mild periosteal resorption or erosions 2. No erosions or osteophytes or abnormal enhancement of the soft tissues or bony structures or synovium and the remaining aspects of the left hand. Electronically Signed: Ranulfo Tamez MD at 23:37 EDT , Service support ,
--- NOTE | 2021-05-21 12:56 | MRI_ITS ---
STUDY: MRI RIGHT HAND REASON FOR EXAM: Female, 40 years old. RT HAND PAIN,INFLAMMATORY ARTHRITIS VS EROSIVE OSTEOARTHRITIS TECHNIQUE: Standardized fat and water weighted pulse sequences were obtained in all 3 orthogonal planes. COMPARISON: Right hand x-ray dated FEBRUARY 27, 2021 FINDINGS: No erosions or osteophytes are present. No demonstrated abnormal enhancement of the synovium or joint capsules. FIRST DIGIT: Normal visualized first metacarpus. Normal metacarpophalangeal joint. Normal interphalangeal joint. Normal proximal, and distal phalanges. Normal flexor and extensor tendons. There is no soft tissue abnormality. SECOND DIGIT: Normal visualized second metacarpus. Normal metacarpophalangeal joint. Normal proximal and distal interphalangeal joints. Normal proximal, middle and distal phalanges. Normal flexor and extensor tendons. There is no soft tissue abnormality. THIRD DIGIT: Normal visualized third metacarpus. Normal metacarpophalangeal joint. Normal proximal and distal interphalangeal joints. Normal proximal, middle and distal phalanges. Normal flexor and extensor tendons. There is no soft tissue abnormality. FOURTH DIGIT: Normal visualized fourth metacarpus. Normal metacarpophalangeal joint. Normal proximal and distal interphalangeal joints. Normal proximal, middle and distal phalanges. Normal flexor and extensor tendons. There is no soft tissue abnormality. FIFTH DIGIT: Normal visualized fifth metacarpus. Normal metacarpophalangeal joint. Normal proximal and distal interphalangeal joints. Normal proximal, middle and distal phalanges. Normal flexor and extensor tendons. There is no soft tissue abnormality. Normal visualized thenar and hypothenar muscles. Normal lumbricalis and interosseous muscles. There are no solid, cystic or lipomatous masses. MRI/Upper Ext No Joint W/WO Cont IMPRESSION: 1. Normal MRI of the right hand. 2. No erosions or osteophytes are present. No demonstrated abnormal enhancement of the synovium or joint capsules. 3. There are no findings of an inflammatory or erosive arthritis on the current MRI exam. Electronically Signed: Ranulfo Tamez MD at 23:32 EDT , Service support ,
== END ==
PROVIDERS: PCP Student in an Organized Health Care Education/Training Program; Referring Provider Internal Medicine Rheumatology; Visit Provider Internal Medicine Rheumatology
DX: M25.531 Pain in right wrist (principal); M25.532 Pain in left wrist
CPT/HCPCS: 73220; A9575; A4216

== ENCOUNTER → 2021-06-02 14:25 | Outpatient (CLI) | payer OTHER, SELFPAY ==
[2021-01-23 11:56] VITALS: BMI 21.4
[2021-06-02 12:59] VITALS: BMI 20.9
[2021-06-02 18:03] LABS: ALB/GLOB Ratio 1.4 RATIO (0.9-2.4); AST(SGOT) 16 U/L (15-37); Alanine Aminotransfer ALT/SGPT 20 U/L (13-56); Albumin, Serum 4.4 g/dL (3.2-5.0); Alkaline Phosphatase 50 U/L (45-117); Anion Gap 7 (5-15); BUN 9 mg/dL (7-18); BUN/Creat Ratio 12.8 RATIO (10-20); Calcium,Total 9.2 mg/dL (8.5-10.1); Chloride 104 mmol/L (98-107); EST Glomerular Filtration Rate 99 mL/min (>60); Est Glom Filt Rate - Afr Amer 119 mL/min (>60); Globulin 3.1 g/dL (2.2-4.2); Glucose 93 mg/dL (74-106); Magnesium 2.2 mg/dL (1.6-2.6); Potassium 3.9 mmol/L (3.5-5.1); Protein, Total 7.5 g/dL (6.4-8.2); Sodium Level 138 mmol/L (136-145); T4 Free Direct 0.83 ng/dL (0.76-1.46); Thyroid Stim Hormone (TSH) 1.51 uIU/mL (0.358-3.74)
== END ==
LOC: MTLAB 12:40 → LAB 14:27
PROVIDERS: Nurse Practitioner Family; PCP Student in an Organized Health Care Education/Training Program; Referring Provider Internal Medicine Rheumatology; Visit Provider Internal Medicine Rheumatology
DX: M25.50 Pain in unspecified joint (principal); R00.2 Palpitations; I34.1 Nonrheumatic mitral (valve) prolapse; R07.9 Chest pain, unspecified
CPT/HCPCS: 36415; 80053; 83735; 84439; 84443

== ENCOUNTER → 2021-06-04 13:07 | Outpatient (CLI) | payer OTHER, SELFPAY ==
[2021-06-02 12:59] VITALS: BMI 20.9
== END ==
PROVIDERS: PCP Student in an Organized Health Care Education/Training Program; Referring Provider Nurse Practitioner Family; Visit Provider Nurse Practitioner Family
DX: R00.2 Palpitations (principal)
CPT/HCPCS: 93225; 93226

== ENCOUNTER → 2021-06-09 13:05 | Outpatient (CLI) | payer OTHER, SELFPAY ==
[2021-06-02 12:59] VITALS: BMI 20.9
--- NOTE | 2021-06-09 13:06 | ECHOD_ITS ---
Reason For Study: MVP Procedure This was a 2D Doppler, Color Flow transthoracic echocardiogram. Exam performed in department. Left Ventricle Normal LV size. Left ventricular systolic function is normal. The estimated ejection fraction is 55 %. No regional wall motion abnormalities noted. Right Ventricle Normal RV size. Normal systolic function. Atria Normal left atrium. Normal right atrium. Mitral Valve Equivocal mitral valve prolapse. Tricuspid Valve Normal tricuspid valve. Mild tricuspid valve insufficiency. Aortic Valve Normal aortic valve. Trisinus/trileaflet aortic valve. Pulmonic Valve Normal pulmonic valve. Great Vessels Normal aortic root. The pulmonary artery is normal size. Normal inferior vena cava. Pericardium/Pleural No pericardial effusion. MMode/2D Measurements & Calculations LVIDd: 4.5 cm IVSd: 0.86 cm Ao root diam: 3.0 cm LVIDs: 3.1 cm LVPWd: 0.91 cm RVDd: 3.0 cm FS: 30.2 % LAV(MOD-bp): 42.2 ml LVAd ap4: 31.7 cm2 LVAd ap2: 33.0 cm2 LAV(MOD-bp) Indexed: 26.0 ml/m2 LVLd ap4: 8.7 cm LVLd ap2: 8.5 cm LAV(MOD-sp2): 41.9 ml EDV(MOD-sp4): 95.5 ml EDV(MOD-sp2): 109.9 ml LAV(MOD-sp4): 38.6 ml EDV(sp4-el): 98.1 ml EDV(sp2-el): 109.2 ml LVAs ap4: 18.4 cm2 LVAs ap2: 18.1 cm2 LVLs ap4: 7.2 cm LVLs ap2: 7.1 cm ESV(MOD-sp4): 39.8 ml ESV(MOD-sp2): 39.7 ml ESV(sp4-el): 40.2 ml ESV(sp2-el): 39.1 ml EF(MOD-sp4): 58.4 % EF(MOD-sp2): 63.9 % EF(sp4-el): 59.1 % SV(MOD-sp4): 55.8 ml SV(MOD-sp2): 70.2 ml SV(sp4-el): 58.0 ml LA dimension(2D): 2.8 cm LA A4 area: 15.2 cm2 RA A4 area: 15.0 cm2 Doppler Measurements & Calculations MV E max yobany: 82.7 cm/sec Lat Peak E' Yobany: 18.0 cm/sec Med Peak E' Yobany: 12.7 cm/sec MV A max yobany: 66.1 cm/sec E/E' lat: 4.6 E/E' med: 6.5 MV E/A: 1.3 Ao V2 max: 135.1 cm/sec LV V1 max: 119.2 cm/sec PA V2 max: 92.3 cm/sec Ao max P.3 mmHg LV V1 max P.7 mmHg TR max yobany: 217.2 cm/sec TR max P.9 mmHg ECHO/Echo Complete Interpretation Summary Normal LV size. Left ventricular systolic function is normal. The estimated ejection fraction is 55 %. Mild tricuspid valve insufficiency. Equivocal mitral valve prolapse. Ordering Physician: Ken Khanna/Jesus Galvan Referring Physician: Wilmar Brown Performed By: Moira Julio RDCS
== END ==
PROVIDERS: PCP Student in an Organized Health Care Education/Training Program; Referring Provider Internal Medicine Cardiovascular Disease; Visit Provider Internal Medicine Cardiovascular Disease
DX: R00.2 Palpitations (principal); R07.9 Chest pain, unspecified; I34.1 Nonrheumatic mitral (valve) prolapse
CPT/HCPCS: 93306

== ENCOUNTER 2021-07-26 09:06 | Emergency (ER) | payer OTHER, SELFPAY ==
[2021-07-26 09:07] VITALS: BP 122/97; PULSE 74; RESP 16; TEMP 36.4; O2SAT 100; BMI 20.7
--- NOTE | 2021-07-26 09:38 | CT_ITS ---
STUDY: CT ABDOMEN AND PELVIS WITHOUT CONTRAST REASON FOR EXAM: Female, 40 years old. flank pain RADIATION DOSAGE (If Supplied By Facility): CTDIvol = ( 6.24 ) mGy, DLP = ( 291.41 ) mGycm TECHNIQUE: Transaxial images were obtained from the dome of the diaphragm to the symphysis pubis without oral contrast, and without intravenous contrast. Sagittal and coronal images were reconstructed. Individualized dose optimization techniques were used for this CT. COMPARISON: None. FINDINGS: The visualized lung bases are unremarkable. The visualized portions of the heart are within normal limits. Normal liver. Normal gallbladder and extrahepatic biliary system. Normal spleen. Normal pancreas. Normal bilateral adrenal glands. Normal right kidney. Normal left kidney. Normal visualized stomach. Normal small intestine. Normal colon. The appendix is visualized and appears normal. Normal abdominal aorta. Normal inferior vena cava. Normal retroperitoneum. Normal urinary bladder. Normal abdominal wall. Bilateral pars defect the L5 vertebra consistent with L5 spondylolysis. No anterolisthesis of L5 on S1 to suggest spondylolisthesis. CT/Abdomen/Pelvis without Cont IMPRESSION: Normal unenhanced CT of the abdomen and pelvis. Electronically Signed: Eddie San MD at 11:04 EDT Tel , Service support ,
--- NOTE | 2021-07-26 09:38 | EX.ED.DYSGE1 ---
HPI History of Present Illness Chief Complaint: Headache Informant: patient Narrative Narrative: 40-year-old female presents to the emergency room for evaluation of right low back pain. Patient states that yesterday morning she tested positive for Covid. She notes diarrhea nausea vomiting headache sore throat runny nose. She denies any shortness of breath or loss of taste. She states that last evening she began to have a pain in the right low back described as a significant ache. It kept her up most of the night. At times it seems to radiate anteriorly. She denies any urinary symptoms. She denies any rashes. No radicular symptoms. She notes that the pain seems to be intensified when she is febrile [facility] Medical History (Updated 07/26/21 @ 11:[address] Karsten Edwards DO) COVID-19 (~10/2020) Depression Migraine Nonrheumatic mitral valve prolapse Thyroid nodule Home Medications multivitamin 1 tab PO QAM 03/30/18 [History Last Taken Unknown] dextroamphetamine-amphetamine 30 mg tablet 30 mg PO .COMPLEX 06/02/21 [History Last Taken Unknown] metoprolol tartrate 25 mg tablet 12.5 mg PO BID #15 tab 06/12/21 [Rx Last Taken Unknown] oxycodone 5 mg PO Q6H PRN 3 Days #12 cap 07/26/21 [Rx Last Taken Unknown] Allergy/AdvReac Type Severity Reaction Status Date / Time No Known Allergies Allergy Verified 07/26/21 09:07 Surgical History H/O excision of ganglion cyst H/O wisdom tooth extraction Social History Smoking Status: Never smoker alcohol intake: current alcohol intake frequency: holidays/special occasions only Alcohol type: beer and wine substance use type: does not use caffeine: Yes Type: coffee Number of servings: 1 ROS ROS ED Constitutional Constitutional ED: Reports chills, fever(s) and sweats; Denies weight loss Eyes Eyes: Denies change in vision or diplopia ENT ENT ED: Reports rhinorrhea and sore throat; Denies ear pain Cardiovascular Cardiovascular: Denies chest pain, orthopnea, palpitations or racing heartbeat Respiratory/Chest Respiratory/Chest: Denies cough, dyspnea or orthopnea Gastrointestinal Gastrointestinal: Reports diarrhea, nausea and vomiting; Denies abdominal pain Genitourinary Genitourinary ED: Denies dysuria, hematuria or urinary frequency Musculoskeletal Musculoskeletal: Reports back pain and myalgias; Denies arthralgias Integumentary Denies abscess or rash Neurologic Neurologic: Reports headache(s); Denies weakness Psychiatric Psychiatric: Denies anxiety, depression, suicidal ideation or suicidal thoughts Endocrine Endocrinology: Denies polydipsia, polyphagia or polyuria Allergic/Immunologic Allergic/Immunologic ED: Denies mouth swelling, tongue swelling or urticaria EXAM Physical Exam Const Vital Signs: 07/26/21 09:07 07/26/21 11:28 Temperature 97.5 F L Temperature Source Temporal Pulse Rate 74 72 Respiratory Rate 16 Blood Pressure 122/97 H 134/104 H Blood Pressure Mean 105 114 Pulse Ox 100 98 Oxygen Delivery Method Room Air Room Air Positive well nourished and well developed General Appearance ED: well developed HEENT Reports normocephalic, head/scalp atraumatic and moist mucous membranes Eyes PERRL and EOMs intact bilaterally Neck no lymphadenopathy, supple and no JVD Resp normal respiratory effort and clear to auscultation bilaterally Cardio regular rate, regular rhythm and no murmurs GI normal to inspection, nondistended, normoactive bowel sounds and non-tender Palpation: soft Back/Spine no CVA tenderness and normal ROM Back/Spine Narrative: Mild tenderness palpation right paraspinal musculature. No rash noted. No skin/tissue texture changes to suggest underlying infection Extremity normal to inspection General Extremety ED: Negative for edema General Extremity: Negative for edema Neuro oriented x3 and CN's II-XII intact bilaterally Sensorium / Orientation: alert Motor Exam: strength 5/5 throughout Psych mental status grossly normal Mood & Affect: Negative for depressed or tearful Skin no rashes or lesions noted and no wounds MDM MDM MDM Narrative Medical decision making narrative: Basic blood work was negative. Urinalysis negative. CT the abdomen pelvis to rule out kidney stone is negative. Patient received a dose of Toradol and a liter of fluids. I will write for her to have pain medication at home. Continued fever reduction return if worsening or concerns Lab Data Attestation: I reviewed the patient's lab results. Labs: Laboratory Results - last 24 hr 07/26/21 07/26/21 07/26/21 09:47 09:50 09:50 WBC 4.8 RBC 4.61 Hgb 13.7 Hct 41.0 MCV 88.9 MCH 29.7 MCHC 33.4 RDW Std Deviation 39.9 RDW Coeff of Garima 12.3 Plt Count 127 L MPV 10.6 Immature Gran % (Auto) 0.200 Neut % (Auto) 76.0 H Lymph % (Auto) 14.5 L [place] % (Auto) 8.9 Eos % (Auto) 0.2 Baso % (Auto) 0.2 Absolute Neuts (auto) 3.7 Absolute Lymphs (auto) 0.70 L Nucleated RBC % 0 Sodium 133 L Potassium 3.6 Chloride 100 Carbon Dioxide 28.0 Anion Gap 5 BUN 7 Creatinine 0.70 Estim Creat Clear Calc 97.54 Est GFR (MDRD) Af Amer 121 Est GFR (MDRD) Non-Af 100 BUN/Creatinine Ratio 10.1 Glucose 106 Calcium 8.9 Total Bilirubin 0.30 AST 13 L ALT 19 Alkaline Phosphatase 43 L Total Protein 7.8 Albumin 4.2 Globulin 3.6 Albumin/Globulin Ratio 1.2 Lipase 115 Urine Color Yellow Urine Clarity Clear Urine pH 7.0 Ur Specific [place] 1.010 Urine Protein 15 H Urine Glucose (UA) Normal Urine Ketones Negative Urine Occult Blood 50 H Urine Nitrite Negative Urine Bilirubin Negative Urine Urobilinogen 1 H Ur Leukocyte Esterase Negative Urine RBC 0 SEEN Urine WBC 0 SEEN Ur Squamous Epith Cells 0-5 SEEN Urine Bacteria 0 SEEN Urine Mucus 0 SEEN Urine Test Negative Radiography Diagnostic Testing: Radiology Impression Abdomen/Pelvis CT 07/26/21 09:38 IMPRESSION: Normal unenhanced CT of the abdomen and pelvis. Electronically Signed: Eddie San MD at 11:04 EDT Tel , Service support , Discharge Plan Triage Chief Complaint: Headache ED Provider: Karsten Edwards Dx/Rx/DC Orders Clinical Impression: COVID-19, Acute low back pain Instructions: ED Pain, Acute, Uncertain Cause Prescriptions: New oxycodone 5 mg capsule 5 mg PO Q6H PRN (Reason: pain) 3 Days Qty: 12 RF: 0 No Action multivitamin tablet 1 tab PO QAM RF: 0 dextroamphetamine-amphetamine [Adderall] 30 mg tablet 30 mg PO .COMPLEX RF: 0 metoprolol tartrate 25 mg tablet 12.5 mg PO BID Qty: 15 RF: 11 Primary Care Provider: Wilmar Brown Referrals: Wilmar Brown DO [Primary Care Provider] - As Needed Disposition Disposition: Home, Self Care
[2021-07-26] MEDS: 0.9% Normal Saline 1,000 ML 1000 ML IV (09:54)
[2021-07-26] MEDS: Ketorolac 30 MG/ML Syringe IV (09:54)
[2021-07-26 09:55] LABS: Bacteria 0 SEEN /hpf (None Seen); Mucous, Urine 0 SEEN /hpf (<or=2+); Red Blood Cells-Urine 0 SEEN /hpf (0-5); White Blood Cells 0 SEEN /hpf (0-5)
[2021-07-26 09:56] LABS: Color, Urine Yellow (Yellow); Glucose, Dipstick Normal (Normal); Ketone-Dipstick Negative (Negative); Leukocyte Esterase-Dipstick Negative /ul (Negative); Nitrite-Dipstick Negative (Negative); Occult Blood-Urine 50 /ul (Negative); Protein-Dipstick 15 mg/dl (Negative); Urine Bilirubin Dipstick Negative (Negative); Urine Clarity Clear (Clear); Urine Urobilinogen 1 mg/dl (Normal)
[2021-07-26 09:59] LABS: Absolute Neutrophil Count 3.7 X10^3/uL (2.0-7.7); Basophil# 0.01 X10^3/uL; Basophil% 0.2 % (0-1); Eosinophil# 0.01 X10^3/uL; Eosinophils% 0.2 % (0-5); Hemoglobin 13.7 g/dL (12.0-15.0); Lymphocyte % 14.5 % (19-41); Mean Corp Hgb Conc 33.4 g/dL (32-36); Mean Corpuscular Hgb 29.7 pg (27.0-32.0); Mean Corpuscular Volume 88.9 fL (81-99); Mean Platelet Vol. 10.6 fl (6.2-12.0); Monocyte# 0.43 X10^3/uL; Monocyte% 8.9 % (0-10); NRBC Flagged by Analyzer 0 % (0-5); Neutrophil # 3.66 X10^3/uL (2.7-7.7); Platelet Count 127 K/mm3 (150-450); RBC Distribution Width CV 12.3 % (11.6-14.6); RBC Distribution Width SD 39.9 fl (35.1-43.9); Red Blood Count 4.61 M/mm3 (4.2-5.4); White Blood Count 4.8 K/mm3 (4.4-11.0)
[2021-07-26 10:02] LABS: Internal QC Validated? YES +Cl - CLEAR BKGD; Pregnancy, Urine Negative Negative; Squamous Epithelial Cells - UA 0-5 SEEN /hpf (5-10)
[2021-07-26 10:13] LABS: ALB/GLOB Ratio 1.2 RATIO (0.9-2.4); AST(SGOT) 13 U/L (15-37); Alanine Aminotransfer ALT/SGPT 19 U/L (13-56); Albumin, Serum 4.2 g/dL (3.2-5.0); Alkaline Phosphatase 43 U/L (45-117); Anion Gap 5 (5-15); BUN 7 mg/dL (7-18); BUN/Creat Ratio 10.1 RATIO (10-20); Calcium,Total 8.9 mg/dL (8.5-10.1); Chloride 100 mmol/L (98-107); EST Glomerular Filtration Rate 100 mL/min (>60); Est Glom Filt Rate - Afr Amer 121 mL/min (>60); Estimated Creatinine Clearance 97.54 ml/min; Globulin 3.6 g/dL (2.2-4.2); Glucose 106 mg/dL (74-106); Lipase 115 U/L (73-393); Potassium 3.6 mmol/L (3.5-5.1); Protein, Total 7.8 g/dL (6.4-8.2); Sodium Level 133 mmol/L (136-145)
[2021-07-26 11:28] VITALS: BP 134/104; PULSE 72; O2SAT 98
== END 2021-07-26 11:41 | disposition home or self-care (01) ==
PROVIDERS: Emergency Provider Emergency Medicine; PCP Student in an Organized Health Care Education/Training Program
DX: U07.1 COVID-19 (principal); M54.5 Low back pain
CPT/HCPCS: 74176; 80053; 81001; 81025; 83690; 85025; 96361; 96374; 99283; J7030

== ENCOUNTER → 2021-09-29 14:26 | Outpatient (CLI) | payer OTHER, SELFPAY ==
[2021-09-29 15:08] LABS: Absolute Lymphocyte Count 1.48 X10^3/uL (0.83-4.51); Absolute Neutrophil Count 5.5 X10^3/uL (2.0-7.7); Basophil# 0.05 X10^3/uL; Basophil% 0.7 % (0-1); Eosinophil# 0.05 X10^3/uL; Eosinophils% 0.7 % (0-5); Hematocrit 40.5 % (37-47); Hemoglobin 13.6 g/dL (12.0-15.0); Lymphocyte # 1.48 X10^3/ul (0.83-4.51); Lymphocyte % 19.9 % (19-41); Mean Corp Hgb Conc 33.6 g/dL (32-36); Mean Corpuscular Hgb 30.2 pg (27.0-32.0); Mean Platelet Vol. 10.6 fl (6.2-12.0); NRBC Flagged by Analyzer 0 % (0-5); Neutrophil # 5.53 X10^3/uL (2.7-7.7); Neutrophil % 74.3 % (47-70); Platelet Count 232 K/mm3 (150-450); RBC Distribution Width CV 13.2 % (11.6-14.6); RBC Distribution Width SD 43.7 fl (35.1-43.9); White Blood Count 7.4 K/mm3 (4.4-11.0)
[2021-09-29 15:43] LABS: Hemoglobin A1c 5.1 % (3.8-5.6)
[2021-09-29 16:04] LABS: ALB/GLOB Ratio 1.4 RATIO (0.9-2.4); AST(SGOT) 18 U/L (15-37); Alanine Aminotransfer ALT/SGPT 36 U/L (13-56); Albumin, Serum 4.9 g/dL (3.2-5.0); Alkaline Phosphatase 63 U/L (45-117); Anion Gap 7 (5-15); BUN 11 mg/dL (7-18); Calcium,Total 9.7 mg/dL (8.5-10.1); Chloride 100 mmol/L (98-107); Creatinine, Serum 0.85 mg/dL (0.55-1.02); EST Glomerular Filtration Rate 80 mL/min (>60); Est Glom Filt Rate - Afr Amer 96 mL/min (>60); Free T3 3.3 pg/mL (2.18-3.98); Globulin 3.4 g/dL (2.2-4.2); Glucose 93 mg/dL (74-106); Potassium 3.6 mmol/L (3.5-5.1); Protein, Total 8.3 g/dL (6.4-8.2); Sodium Level 136 mmol/L (136-145); T4 Free Direct 0.98 ng/dL (0.76-1.46); Thyroid Stim Hormone (TSH) 0.81 uIU/mL (0.358-3.74)
[2021-10-01 13:48] LABS: C-Peptide 1.3 ng/mL (1.1-4.4); Thyroid Peroxidase AB < 8 IU/mL (0-34)
== END ==
PROVIDERS: PCP Student in an Organized Health Care Education/Training Program; Referring Provider Student in an Organized Health Care Education/Training Program; Visit Provider Student in an Organized Health Care Education/Training Program
DX: Z00.00 Encounter for general adult medical examination without abnormal findings (principal); R63.4 Abnormal weight loss
CPT/HCPCS: 36415; 80053; 83036; 84439; 84443; 84481; 84681; 85025; 86376

== ENCOUNTER 2021-10-29 13:30 | Outpatient (RCR) | payer OTHER, SELFPAY ==
[2018-11-03 13:42] VITALS: BMI 23.8
[2021-01-23 11:56] VITALS: BMI 21.4
== END 2021-10-29 19:00 | disposition home or self-care (01) ==
LOC: MASS 13:30
PROVIDERS: PCP Student in an Organized Health Care Education/Training Program; Referring Provider Student in an Organized Health Care Education/Training Program; Visit Provider Student in an Organized Health Care Education/Training Program
DX: G43.119 Migraine with aura, intractable, without status migrainosus (principal)
CPT/HCPCS: 97124

== ENCOUNTER 2021-12-19 11:45 | Outpatient (CLI) | payer OTHER, SELFPAY ==
--- NOTE | 2021-12-19 11:48 | RAD_ITS ---
EXAM: XR LEFT FOOT COMPLETE, 3 OR MORE VIEWS CLINICAL INDICATION: PLANTER FASCITIS TECHNIQUE: Frontal, lateral and oblique views of the left foot. This report was created using [employer] report generation technology. COMPARISON: 4.21 FINDINGS: BONES/JOINTS: There is a calcaneal spur. There is degenerative arthrosis of the metatarsophalangeal joint of the hallux . No acute fracture. No subluxation. Normal alignment. No sclerotic or destructive changes observed. SOFT TISSUES: Unremarkable. No soft tissue swelling or gas. No radiopaque foreign body. RAD/Foot min 3 Views IMPRESSION: 1. There is a calcaneal spur. 2. There is degenerative arthrosis of the metatarsophalangeal joint of the hallux . Electronically Signed: Jose G Mora MD at 17:04 EST Reading Location ID and State: [facility] / [place] , Service support ,
--- NOTE | 2021-12-19 11:49 | RAD_ITS ---
EXAM: XR RIGHT FOOT COMPLETE, 3 OR MORE VIEWS CLINICAL INDICATION: PLANTER FASCITIS TECHNIQUE: Frontal, lateral and oblique views of the right foot. This report was created using [employer] report generation technology. COMPARISON: 12.26.20 FINDINGS: BONES/JOINTS: Unremarkable. No acute fracture. No subluxation. Normal alignment. Preservation of the joint space. No sclerotic or destructive changes observed. SOFT TISSUES: Unremarkable. No soft tissue swelling or gas. No radiopaque foreign body. RAD/Foot min 3 Views IMPRESSION: Negative right foot x-rays. Electronically Signed: Jose G Mora MD at 17:05 EST ,
== END 2021-12-19 23:59 | disposition short-term general hospital (02) ==
LOC: MTRAD 11:46
PROVIDERS: PCP Student in an Organized Health Care Education/Training Program; Referring Provider Podiatrist; Visit Provider Podiatrist
DX: M72.2 Plantar fascial fibromatosis (principal)
CPT/HCPCS: 73630

== ENCOUNTER 2022-01-21 13:30 | Outpatient (RCR) | payer OTHER, SELFPAY ==
--- NOTE | 2021-12-18 14:47 | HP.PTEVAL ---
Patient's Visit Information STEFFANY SMITH is a 41 year old F referred to Physical Therapy by Dr. Ravi Ricardo DPM with a diagnosis of Plantar Fascititis. Date of Evaluation: 12/18/21 Physical Therapist: Jaylene Tenorio DPT - Visit Plan Frequency: 2x /Week Duration: 4 Weeks Plan: Focus on LE and core strength/stabilization- ultrasound, graston and DN - Subjective Chronic foot pain bilateral- several years- this time if year is always worse due to her time on the ellip- an hour 4x a week- forwards/backwards doesn't matter. Pain is located along the bottom of the foot arch, front pad and heel. The pain comes and goes. Worst: 4/10 Agg: ellip, standing for long periods of time. Eases: rest Best: 0/10. Describes the pain as achy, burning, tingling. One side is no different then the other. No radiating pain. She is planning on having x-rays after therapy today. No MRI. Had therapy on her feet last winter- dry needling- Leonid did it last year. Sleep: not disturbed. Normally runs outside- she still has pain but not as bad. Does wear orthotics in her shoes- works out in [place]. She thinks those work the best for her with her orthotics- runs an hour a day 4 days a week. Does also do pushups- no core or LE exercises. PMHx/Meds: no changes since scanned in chart. 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 Does not run in orthotics- makes it feel worse. - Objective Posture: fair throughout. Gait: no deviation noted. Observation: increase pes planus bilateral. SLS: 15 sec with increased hip drop bilateral. HR/TR: able. ROM: WFL in all planes. Palpation: tender along medial arch, Achilles and heel- not tender with mobilization to forefoot. Strength: Core: fair Hip: IR: 4/5, ER: 4-/5, Flexion/Ext/Abd: 4/5, Knee: 5/5, Ankle: 5/5. Flex: HS: moderate, Gastroc: moderate, Solues: moderate - Balance/Special Test Scores Lower Extremity Functional Score: 77 - Goals Goal 1:: Patient will be I with HEP and progression Goal Time Frame: 4-6 Weeks Goal 2:: Patient will maintain proper posture t/o tx session to demo increased core s/s Goal Time Frame: 4-6 Weeks Goal 3:: Patient will report no pain for 1 week with ADLs/recreational activities Goal Time Frame: 6-8 Weeks - Rehabilitation Potential Physical Therapy Diagnosis: Patient presents with hypomobility- she has decreased LE and core strength/stabilization, flex and muscular endurance leading to increased pain with ADL's and instability with running. Rehabilitation Potential: Good - Anticipated Interventions Patient/Client Instruction: Educate patient on: Benefits of Fitness Program Therapeutic Exercise to Include: Strength training, Endurance training, Balance training, Coordination, Agility training, Body mechanics, Postural training, Flexibilty training, Gait and locomotor training, Neuromotor development, Dynamic Lumbar Stabilization, Scapular Strength/Stabilization For the Purpose of:: To improve muscle performance and motor function Manual Therapy Techniques to Include: Functional dry needling, Soft tissue mobilization IF ES: Yes Cryotherapy (ice pack, ice massage): Yes Thermo therapy (hot pack): Yes Ultrasound (thermal/non thermal): Yes Thank you for the opportunity to evaluate your patient. For Medicare and Medicare HMO plans, please review the plan of care and approve it. It will need to be FAXED BACK to us at [phone] for Medicare purposes. For Medicare only, by signing this I certify the plan of care. Please let me know if there are questions or concerns regarding this plan of care. Physician Signature: Date:
--- NOTE | 2022-05-07 14:49 | HP.PT.NRP ---
STEFFANY SMITH was seen in my office for initial evaluation on 12/18/21. The following Plan of Care was established for this patient: Initial Frequency: 2x /Week Initial Duration: 4 Weeks Patient/Client Instruction: Educate patient on: Benefits of Fitness Program Therapeutic Exercise to Include: Strength training, Endurance training, Balance training, Coordination, Agility training, Body mechanics, Postural training, Flexibilty training, Gait and locomotor training, Neuromotor development, Dynamic Lumbar Stabilization, Scapular Strength/Stabilization For the Purpose of:: To improve muscle performance and motor function Manual Therapy Techniques to Include: Functional dry needling, Soft tissue mobilization IF ES: Yes Cryotherapy (ice pack, ice massage): Yes Thermo therapy (hot pack): Yes Ultrasound (thermal/non thermal): Yes This patient was last seen in our office . Pertinent comments regarding their Physical therapy will appear below: Patient has not attended PT in over 30 days- appropriate to be d/c and return to MD for further evaluation as needed. At this point I will be discontinuing this patient from physical therapy. I would be happy to see this patient again in the future if found appropriate by the physician. Thank you! Jaylene Tenorio, FREDY Balance/Gait/Functional tests - Balance/Special Test Scores Lower Extremity Functional Score: 77
== END 2022-01-21 19:00 | disposition home or self-care (01) ==
LOC: PT 13:30
PROVIDERS: PCP Student in an Organized Health Care Education/Training Program; Referring Provider Podiatrist; Visit Provider Podiatrist
DX: M72.2 Plantar fascial fibromatosis (principal)
CPT/HCPCS: 97035; 97110; 97140; 97162

== ENCOUNTER → 2022-05-13 | Outpatient (CLI) | payer OTHER, SELFPAY ==
[2022-05-13 13:39] LABS: Absolute Lymphocyte Count 1.55 X10^3/uL (0.83-4.51); Absolute Neutrophil Count 1.8 X10^3/uL (2.0-7.7); Basophil# 0.04 X10^3/uL; Basophil% 1.1 % (0-1); Eosinophils% 2.7 % (0-5); Hematocrit 37.4 % (37-47); Hemoglobin 12.4 g/dL (12.0-15.0); Lymphocyte # 1.55 X10^3/ul (0.83-4.51); Lymphocyte % 41.1 % (19-41); Mean Corp Hgb Conc 33.2 g/dL (32-36); Mean Corpuscular Hgb 29.8 pg (27.0-32.0); Mean Corpuscular Volume 89.9 fL (81-99); Mean Platelet Vol. 10.6 fl (6.2-12.0); Monocyte# 0.24 X10^3/uL; Monocyte% 6.4 % (0-10); NRBC Flagged by Analyzer 0 % (0-5); Neutrophil # 1.83 X10^3/uL (2.7-7.7); Neutrophil % 48.4 % (47-70); Platelet Count 203 K/mm3 (150-450); RBC Distribution Width CV 12.8 % (11.6-14.6); RBC Distribution Width SD 42.4 fl (35.1-43.9); Red Blood Count 4.16 M/mm3 (4.2-5.4); White Blood Count 3.8 K/mm3 (4.4-11.0)
[2022-05-13 14:03] LABS: AST(SGOT) 12 U/L (15-37); Alanine Aminotransfer ALT/SGPT 21 U/L (13-56); Creatinine, Serum 0.75 mg/dL (0.55-1.02); EST Glomerular Filtration Rate 92 mL/min (>60); Est Glom Filt Rate - Afr Amer 111 mL/min (>60)
== END | disposition home or self-care (01) ==
LOC: LAB 12:50
PROVIDERS: PCP Student in an Organized Health Care Education/Training Program; Referring Provider Nurse Practitioner Adult Health; Visit Provider Nurse Practitioner Adult Health
DX: M06.4 Inflammatory polyarthropathy (principal); Z79.899 Other long term (current) drug therapy
CPT/HCPCS: 36415; 82565; 84450; 84460; 85025

== ENCOUNTER → 2022-05-21 | Outpatient (CLI) | payer OTHER, SELFPAY ==
--- NOTE | 2022-05-21 18:36 | US_ITS ---
STUDY: ABDOMINAL ULTRASOUND REASON FOR EXAM: Female, 41 years old. Cramping. Diarrhea. Rectal bleeding. TECHNIQUE: Transabdominal ultrasound was performed with real-time and static samuel scale imaging. TECHNICAL QUALITY: Adequate. COMPARISON: CT of the abdomen and pelvis, 07/26/2021 FINDINGS: Liver: The liver measures 16.4 cm. There is normal echogenicity of the liver. The bile ducts are within normal limits. There is hepatic color flow. The direction of portal flow is hepatopetal. There is a 1.4 x 1.2 x 0.7 cm echogenic focus is in the right liver segment 5. There is a similar echogenic focus in the left liver measuring 1.7 x 1.0 x 0.7 cm. These most likely represent hemangiomas. They''re not visualized on the prior noncontrast CT. Gallbladder: Normal distended gallbladder. The gallbladder wall measures 2 mm. There is a negative sonographic James''s sign. There is no pericholecystic fluid. There are no gallstones. Common Bile Duct (C.B.D.): The common bile duct measures 4 mm. Pancreas: Normal size of the head, body and tail of the pancreas. There is normal echogenicity of the pancreas. There is no demonstrated pancreatic mass or cyst. Spleen: Normal size of the spleen. The spleen measures 11 cm. There is a 9 mm accessory spleen. Right Kidney: Normal size of the right kidney. The right kidney measures 10.4 cm. Normal renal cortex. The right cortex measures 1.3 cm. There is no demonstrated renal mass or cyst. There is no right hydronephrosis. Left Kidney: Normal size of the left kidney. The left kidney measures 11.2 cm. Normal renal cortex. The left cortex measures 2.1 cm. There is no demonstrated renal mass or cyst. There is no left hydronephrosis. Aorta: No abdominal aortic aneurysm. I.V.C.: The IVC is patent. There is no ascites. US/Abdomen Complete IMPRESSION: Probable hemangiomas in the liver. The study is otherwise unremarkable. Electronically Signed: Gato Yang DO at 19:39 EDT Reading Location ID and State: [address] [place] [address] Tel [phone], Service support ,
== END | disposition home or self-care (01) ==
LOC: US 18:35
PROVIDERS: PCP Student in an Organized Health Care Education/Training Program; Visit Provider Nurse Practitioner Family
DX: R10.9 Unspecified abdominal pain (principal); R19.7 Diarrhea, unspecified; K62.5 Hemorrhage of anus and rectum
CPT/HCPCS: 76700

== ENCOUNTER → 2022-05-21 | Outpatient (CLI) | payer OTHER, SELFPAY ==
[2022-05-21 18:02] LABS: Absolute Lymphocyte Count 1.31 X10^3/uL (0.83-4.51); Absolute Neutrophil Count 6.3 X10^3/uL (2.0-7.7); Basophil# 0.06 X10^3/uL; Basophil% 0.7 % (0-1); Eosinophil# 0.04 X10^3/uL; Eosinophils% 0.5 % (0-5); Hematocrit 37.9 % (37-47); Hemoglobin 12.6 g/dL (12.0-15.0); Lymphocyte # 1.31 X10^3/ul (0.83-4.51); Mean Corp Hgb Conc 33.2 g/dL (32-36); Mean Corpuscular Hgb 29.8 pg (27.0-32.0); Mean Corpuscular Volume 89.6 fL (81-99); Mean Platelet Vol. 11.2 fl (6.2-12.0); Monocyte# 0.41 X10^3/uL; NRBC Flagged by Analyzer 0 % (0-5); Neutrophil # 6.34 X10^3/uL (2.7-7.7); Neutrophil % 77.3 % (47-70); Platelet Count 182 K/mm3 (150-450); RBC Distribution Width CV 12.5 % (11.6-14.6); RBC Distribution Width SD 40.9 fl (35.1-43.9); Red Blood Count 4.23 M/mm3 (4.2-5.4); White Blood Count 8.2 K/mm3 (4.4-11.0)
[2022-05-28 09:09] LABS: H. PYLORI STOOL AG Negative (Negative)
== END | disposition home or self-care (01) ==
PROVIDERS: PCP Student in an Organized Health Care Education/Training Program; Referring Provider Nurse Practitioner Family; Visit Provider Nurse Practitioner Family
DX: K62.5 Hemorrhage of anus and rectum (principal); R10.9 Unspecified abdominal pain; R19.7 Diarrhea, unspecified
CPT/HCPCS: 36415; 82274; 85025; 87506

== ENCOUNTER → 2022-08-18 | Outpatient (CLI) | payer OTHER, SELFPAY ==
[2022-08-18 17:29] LABS: Erythrocyte Sedimentation Rate 2 mm/hr (0-30)
[2022-08-18 18:09] LABS: Hemoglobin A1c 5.5 % (3.8-5.6)
[2022-08-18 18:17] LABS: Vitamin B12 566 pg/mL (211-911); Vitamin D,25 Hydroxy 35.6 ng/mL
[2022-08-18 18:23] LABS: CRP, High Sensitivity Cardiac 0.86 mg/L; Iron 89 ug/dL (50-170); Iron Binding Capacity,Total 435 ug/dL (250-450); T4 Free Direct 0.95 ng/dL (0.76-1.46); Thyroid Stim Hormone (TSH) 1.65 uIU/mL (0.358-3.74)
[2022-08-20 10:13] LABS: CRP < 2.90 mg/L (0.0-3.0)
[2022-08-20 15:08] LABS: Folate, RBC (Hct) Test 39.8 % (34.0-46.6)
[2022-08-20 16:28] LABS: Folates, RBC Test 1201 ng/mL (>498)
== END | disposition home or self-care (01) ==
LOC: LAB 17:09
PROVIDERS: PCP Student in an Organized Health Care Education/Training Program; Referring Provider Student in an Organized Health Care Education/Training Program; Visit Provider Student in an Organized Health Care Education/Training Program
DX: Z00.00 Encounter for general adult medical examination without abnormal findings (principal); R41.840 Attention and concentration deficit; L65.9 Nonscarring hair loss, unspecified; E04.1 Nontoxic single thyroid nodule; M25.50 Pain in unspecified joint; R73.9 Hyperglycemia, unspecified
CPT/HCPCS: 36415; 82306; 82607; 82747; 83036; 83540; 83550; 84439; 84443; 84481; 85014; 85652; 86140; 86141

== ENCOUNTER → 2022-09-10 | Outpatient (CLI) | payer OTHER, SELFPAY ==
--- NOTE | 2022-09-10 12:35 | US_ITS ---
STUDY: THYROID ULTRASOUND REASON FOR EXAM: Female, 41 years old. Known nodule TECHNIQUE: Ultrasound evaluation of the thyroid was performed with real-time and static samuel-scale imaging. COMPARISON: Previous report from 2017 FINDINGS: RIGHT LOBE: The right lobe of the thyroid gland measures 4.9 x 1.6 x 1.5 cm. There is a homogeneous echotexture. There is a stable complex 2.0 x 2.0 x 1.0 mm solid/cystic nodule. LEFT LOBE: The left lobe of the thyroid gland measures 4.7 x 1.6 x 1.1 cm. There is a homogeneous echotexture. There is a stable complex cyst measuring 5 x 3 x 2 mm. ISTHMUS: The isthmus measures 2.2 mm. The regional lymph nodes are normal. Note is made of a palpable skin lesion measuring 1.2 x 1.4 x 0.4 cm, likely a complex inclusion or sebaceous cyst US/Thyroid IMPRESSION: Normal sized homogeneous thyroid gland with stable complex subcentimeter cysts in both lobes. No interval change, no specific follow-up needed. Palpable skin lesion measuring 1.2 x 1.4 x 0.4 cm, it demonstrates benign characteristics and no specific follow-up is needed Electronically Signed: Vitor Gaines MD at 13:43 EDT ,
== END | disposition home or self-care (01) ==
LOC: US 12:34
PROVIDERS: PCP Student in an Organized Health Care Education/Training Program; Referring Provider Student in an Organized Health Care Education/Training Program; Visit Provider Student in an Organized Health Care Education/Training Program
DX: E04.1 Nontoxic single thyroid nodule (principal)
CPT/HCPCS: 76536

== ENCOUNTER → 2022-09-17 | Outpatient (CLI) | payer OTHER, SELFPAY ==
--- NOTE | 2022-09-17 14:02 | BI_ITS ---
MAMMOGRAPHY - BILATERAL SCREENING REASON FOR EXAM: Female, 41 years old. Routine annual screening examination. PERTINENT HISTORY: Mother with breast cancer. TECHNIQUE: Digital bilateral breast kev (3D mammographic acquisition) in the CC and MLO projections. 2-D mediolateral oblique (MLO) and craniocaudad (CC) views of both breasts were obtained. CAD: Full Field Digital Mammography with Computer Added Detection was performed. COMPARISON: Comparison is made with prior examination of 10/05/2019 FINDINGS: Breast Composition: The breasts are extremely dense, which lowers the sensitivity of mammography. There are no dominant masses or suspicious calcifications. There now is evidence of scattered microcalcifications in the right breast with no focal cluster. This may represent sclerosing adenosis. No other significant abnormalities are identified. BI/SCRN MAMM (CAD)W/KEV BILAT IMPRESSION: Stable bilateral screening mammogram. Yearly follow-up mammogram recommended. (A) ASSESSMENT CATEGORY: BIRADS Category 2: Benign. A letter regarding these results will be sent to the patient by the facility within 30 days. Approximately 10% of breast cancers are not detected by mammography. A normal mammogram should not delay biopsy of a clinically suspicious abnormality. [id number] Electronically Signed: Jarrell Presley MD at 15:05 EDT ,
--- NOTE | 2022-09-17 14:07 | BD_ITS ---
STUDY: DUAL ENERGY X-RAY ABSORPTIOMETRY / DXA REASON FOR EXAM: Female, 41 years old. Z13.820 TECHNIQUE: Bone Mineral Density (BMD) measurements of lumbar spine and bilateral hips were obtained. COMPARISON: None. FINDINGS: Lumbar Spine (L1-L4): g/cm2 (1.128) / T-score (0.7) / Z-score (0.9) Findings are suggestive of normal bone density with a low fracture risk. Left Femur Total: g/cm2 (1.149) / T-score (1.7) / Z-score (1.9) Left Femoral Neck: g/cm2 (1.031) / T-score (1.6) / Z-score (1.9) Right Femur Total: g/cm2 (1.110) / T-score (1.4) / Z-score (1.5) Right Femoral Neck: g/cm2 (0.972) / T-score (1.1) / Z-score (1.4) BD/Dexa Bone Density Study IMPRESSION: The patient is considered normal as outlined below according to World Kunal Organization (WHO) criteria with a low fracture risk. Reference Information: The T-score is the number of standard deviations above or below the standard which is normal for young adults at their peak bone mineral density. The World Health Organization (WHO) interprets the T-scores as follows: Above -1 Normal bone density Between -1 and -2.5 Osteopenia Equal to / or below -2.5 Osteoporosis As a practical clinical guideline, osteopenia may be graded as follows: Mild -1 through -1.5 Moderate -1.6 through -2.0 Severe -2.1 through -2.4 The Z-score is the number of standard deviations above or below age-matched controls. A Z-score of less than -1.5 would be considered abnormal. References: 1. NIH Osteoporosis and Related Bone Diseases www osteo.org 2. International Society for Clinical Densitometry www iscd.org 3. National Osteoporosis Foundation www nof.org Electronically Signed: Jarrell Presley MD at 13:13 EDT ,
== END | disposition home or self-care (01) ==
LOC: OPBD 14:00
PROVIDERS: PCP Student in an Organized Health Care Education/Training Program; Visit Provider Student in an Organized Health Care Education/Training Program
DX: Z13.820 Encounter for screening for osteoporosis (principal); Z12.31 Encounter for screening mammogram for malignant neoplasm of breast; Z80.3 Family history of malignant neoplasm of breast
CPT/HCPCS: 77063; 77067; 77080

== ENCOUNTER → 2022-12-01 | Outpatient (CLI) | payer OTHER, SELFPAY ==
[2022-12-01 16:35] LABS: Absolute Lymphocyte Count 1.45 X10^3/uL (0.83-4.51); Absolute Neutrophil Count 3.2 X10^3/uL (2.0-7.7); Basophil# 0.04 X10^3/uL; Basophil% 0.8 % (0-1); Eosinophil# 0.13 X10^3/uL; Eosinophils% 2.6 % (0-5); Hematocrit 38.5 % (37-47); Hemoglobin 13.2 g/dL (12.0-15.0); Lymphocyte # 1.45 X10^3/ul (0.83-4.51); Lymphocyte % 28.5 % (19-41); Mean Corp Hgb Conc 34.3 g/dL (32-36); Mean Corpuscular Hgb 30.9 pg (27.0-32.0); Mean Corpuscular Volume 90.2 fL (81-99); Mean Platelet Vol. 10.3 fl (6.2-12.0); Monocyte# 0.26 X10^3/uL; Monocyte% 5.1 % (0-10); NRBC Flagged by Analyzer 0 % (0-5); Neutrophil % 62.8 % (47-70); Platelet Count 207 K/mm3 (150-450); RBC Distribution Width CV 12.4 % (11.6-14.6); RBC Distribution Width SD 41.1 fl (35.1-43.9); Red Blood Count 4.27 M/mm3 (4.2-5.4); White Blood Count 5.1 K/mm3 (4.4-11.0)
[2022-12-01 17:04] LABS: T3 Total - Triiodothyronine 0.84 ng/mL (0.6-1.81)
[2022-12-01 18:11] LABS: Ferritin 56 ng/mL (8-252); Prolactin 12.6 ng/mL; T4 Free Direct 0.88 ng/dL (0.76-1.46); Thyroid Stim Hormone (TSH) 0.71 uIU/mL (0.358-3.74)
[2022-12-03 17:32] LABS: ANTINUCLEAR ANTIBODIES DIRECT Negative (Negative)
[2022-12-03 21:59] LABS: Thyroid Peroxidase AB < 9 IU/mL (0-34)
== END | disposition home or self-care (01) ==
LOC: LAB 15:41
PROVIDERS: PCP Student in an Organized Health Care Education/Training Program; Referring Provider Dermatology Pediatric Dermatology; Visit Provider Dermatology Pediatric Dermatology
DX: E03.8 Other specified hypothyroidism (principal); L82.1 Other seborrheic keratosis; L81.4 Other melanin hyperpigmentation; D22.5 Melanocytic nevi of trunk; L57.8 Other skin changes due to chronic exposure to nonionizing radiation; L56.5 Disseminated superficial actinic porokeratosis (DSAP); L70.8 Other acne; Z71.89 Other specified counseling; Z80.8 Family history of malignant neoplasm of other organs or systems
CPT/HCPCS: 36415; 82728; 84146; 84439; 84443; 84480; 85025; 86038; 86376

== ENCOUNTER → 2023-03-24 | Outpatient (CLI) | payer OTHER, SELFPAY ==
--- NOTE | 2023-03-24 15:10 | RAD_ITS ---
STUDY: X-RAY - RIGHT FOOT CLINICAL: Female, 42 years old. Pain. TECHNIQUE: 3 weightbearing view(s) of the foot. COMPARISON: December 19, 2021. FINDINGS: Normal talus, calcaneus, and tarsal bones. Normal visualized subtalar, talonavicular, calcaneocuboid, tarsal and tarsometatarsal articulations. Normal metatarsi. Normal metatarsophalangeal joint of the great toe. Normal tibial and fibular sesamoid bones. Normal interphalangeal joint of the great toe. Normal phalanges of the great toe. Normal second through fifth metatarsophalangeal joints. Normal interphalangeal joints and phalanges of the lesser toes. The soft tissue structures are unremarkable. RAD/Foot min 3 Views IMPRESSION: Normal x-ray examination of the right foot. No major interval change. Electronically Signed: Gato Yang DO at 18:31 EDT ,
--- NOTE | 2023-03-24 15:10 | RAD_ITS ---
STUDY: X-RAY - LEFT FOOT CLINICAL: Female, 42 years old. PAIN TECHNIQUE: 3 view(s) of the foot. COMPARISON: None. FINDINGS: Small plantar spur, otherwise normal talus, calcaneus, and tarsal bones. Normal visualized subtalar, talonavicular, calcaneocuboid, tarsal and tarsometatarsal articulations. Normal metatarsi. Normal metatarsophalangeal joint of the great toe. Normal tibial and fibular sesamoid bones. Normal interphalangeal joint of the great toe. Normal phalanges of the great toe. Normal second through fifth metatarsophalangeal joints. Normal interphalangeal joints and phalanges of the lesser toes. The soft tissue structures are unremarkable. There is no demonstrated fracture. RAD/Foot min 3 Views IMPRESSION: No definite acute or significant abnormality seen. Electronically Signed: Aldo Mullins MD at 21:40 EDT ,
== END | disposition home or self-care (01) ==
PROVIDERS: PCP Student in an Organized Health Care Education/Training Program; Referring Provider Podiatrist; Visit Provider Podiatrist
DX: M79.671 Pain in right foot (principal); M79.672 Pain in left foot
CPT/HCPCS: 73630

== ENCOUNTER → 2023-09-29 | Outpatient (CLI) | payer OTHER, SELFPAY ==
--- NOTE | 2023-09-29 13:27 | BI_ITS ---
MAMMOGRAPHY - BILATERAL SCREENING REASON FOR EXAM: Female, 42 years old. Routine annual screening examination. PERTINENT HISTORY: Mother with breast cancer. TECHNIQUE: Digital bilateral breast kev (3D mammographic acquisition) in the CC and MLO projections. 2-D mediolateral oblique (MLO) and craniocaudad (CC) views of both breasts were obtained. CAD: Full Field Digital Mammography with Computer Added Detection was performed. COMPARISON: Comparison is made with prior study September 17, 2022 and October 05, 2018. FINDINGS: Breast Composition: The breasts are extremely dense, which lowers the sensitivity of mammography. There are no dominant masses or suspicious calcifications. Stable right axillary lymph nodes. Stable scattered calcifications in the right breast. No other significant abnormalities are identified. There has been no significant change since the prior study. BI/SCRN MAMM (CAD)W/KEV BILAT IMPRESSION: Stable bilateral screening mammogram. Yearly follow-up mammogram recommended. (A) ASSESSMENT CATEGORY: BIRADS Category 2: Benign. A letter regarding these results will be sent to the patient by the facility within 30 days. Approximately 10% of breast cancers are not detected by mammography. A normal mammogram should not delay biopsy of a clinically suspicious abnormality. [id number] Electronically Signed: Jarrell Presley MD at 14:19 EST ,
== END | disposition home or self-care (01) ==
LOC: OPBI 13:25
PROVIDERS: PCP Student in an Organized Health Care Education/Training Program
DX: Z12.31 Encounter for screening mammogram for malignant neoplasm of breast (principal)
CPT/HCPCS: 77063; 77067

== ENCOUNTER → 2024-01-25 | Outpatient (CLI) | payer OTHER, SELFPAY | END | disposition home or self-care (01) | LOC: PSN 08:43 | PROVIDERS: PCP Student in an Organized Health Care Education/Training Program; Referring Provider Nurse Practitioner Family; Visit Provider Nurse Practitioner Family | DX: R00.2 Palpitations (principal) | CPT/HCPCS: 93225; 93226 ==

== ENCOUNTER → 2024-08-19 | Outpatient (CLI) | payer OTHER, SELFPAY ==
[2024-08-19 10:35] LABS: Ferritin 84 ng/mL (8-252); Hemoglobin A1c 5.3 % (3.8-5.6); Iron 31 ug/dL (50-170); Iron Binding Capacity,Total 378 ug/dL (250-450); PERCENT IRON SATURATION 8.2 % (15.0-55.0)
[2024-08-21 15:08] LABS: C-Peptide 1.9 ng/mL (1.1-4.4)
== END | disposition home or self-care (01) ==
LOC: LAB 09:41
PROVIDERS: PCP Student in an Organized Health Care Education/Training Program; Referring Provider Student in an Organized Health Care Education/Training Program; Visit Provider Student in an Organized Health Care Education/Training Program
DX: Z00.00 Encounter for general adult medical examination without abnormal findings (principal); R73.9 Hyperglycemia, unspecified
CPT/HCPCS: 36415; 82533; 82728; 83036; 83525; 83540; 83550; 84681

== ENCOUNTER → 2024-09-18 | Outpatient (CLI) | payer OTHER, SELFPAY ==
--- OUTSIDE RECORDS SUMMARY | 2024-09-18 08:01 | XMS RPT_ITS | CCD ---
Author Organization [facility] Care Team Providers Care Service Station Manager Name Role Phone Wilmar Phillip DO Primary Care Provider [phone] WILMAR PHILLIP Attending Unavailable WILMRA PHILLIP Primary Care Unavailable Medications Current Medications Medication Drug Class(es) Dates Sig (Normalized) Sig (Original) amphetamine aspartate 7.5 mg / amphetamine sulfate 7.5 mg / dextroamphetamine saccharate 7.5 mg / dextroamphetamine sulfate 7.5 mg oral tablet (20 sources) Central Nervous System Stimulant Start: 06-30-2023 End: 2024 take 1 tablet by mouth once daily Amphetamine-Dextro amphetamine (ADDERALL) 30 mg tablet Indications: Concentration deficit Take 1 tablet by mouth once daily for 30 days. Patient should start on October 16, 2024. 30 tablet 10/16/2024 2024 Active Start: 04-05-2023 End: 05-05-2023 take 1 tablet by mouth once daily Amphetamine-Dextroamphetamine (ADDERALL) 30 mg tablet Indications: Concentration deficit Take 1 tablet by mouth once daily for 30 days. 30 tablet 0 04/05/2023 Active Start: 01-29-2022 End: 02-06-2023 take 1 tablet by mouth once daily Amphetamine-Dextroamphetamine (ADDERALL) 30 mg tablet Indications: Concentration deficit Take 1 tablet by mouth once daily for 30 days. Do not start before January 07, 2023. 30 tablet 0 01/07/2023 Active Comment on above: Take 1 tablet by ranulfo th once daily for 30 days. TAKE 1 TABLET BY RANULFO TH ONCE DAILY Take 1 tablet by ranulfo th once daily for 30 days. Do not start before January 07, 2023. Take 1 tablet by ranulfo th once daily for 30 days. Do not start before August 30, 2023. Take 1 tablet by ranulfo th once daily for 30 days. Do not start before July 31, 2023. doxycycline hyclate 100 mg oral tablet (1 source) Tetracycline-class Drug Start: 08-18-20 24 End: 08-28-20 24 take 1 tablet by mouth twice daily doxycycline (VIBRA-TABS) 100 mg tablet Take 1 tablet by mouth two times a day for 10 days. 20 tablet 08/18/2024 08/28/2024 Active metoprolol tartrate 25 mg oral tablet (20 sources) beta-Adrenergic Scarlett Start: 11-02-20 22 metoprolol tartrate, short acting, (LOPRESSOR) 25 mg tablet 11/02/2022 Active ofloxacin 3 mg/ml otic solution (13 sources) Quinolone Antimicrobial Start: 06-30-20 23 ofloxacin (FLOXIN) 0.3 % otic solution Indications: Other infective acute otitis externa of left ear Use 5 Drops in both ears twice daily. 10 mL 06/30/2023 Active Comment on above: Use 5 Drops in both ears twice daily. 72 hr scopolamine 0.0139 mg/hr transdermal system (20 sources) Anticholinergic Start: 06-02-20 scopolamine (TRANSDERM-SCOP) patch 1.5 mg/72 hr (delivers 1 mg over 3 days) Apply 1 Patch as directed every 72 hours. Apply patch to skin behind ear 4hrs prior to travel. 4 Patch 1 06/02/2022 Active Comment on above: Apply 1 Patch as dir ected every 72 hours. Apply patch to skin behind ear 4hrs prior to travel. tiZANidine 4 mg oral tablet (20 sources) Central alpha-2 Adrenergic Agonist Start: 09-16-20 End: 08-06-20 take 1 tablet by mouth every eight hours as needed tiZANidine (ZANAFLEX) 4 mg tablet Take 1 tablet by mouth every 8 hours as needed (muscle spasms). 30 tablet 11 08/06/2022 Active Comment on above: Take 1 tablet by ranulfo every 8 hours as needed (muscle spasms). Completed/Discontinued Medications Medication Drug Class(es) Dates Sig (Normalized) Sig (Original) hydroxychloroquine sulfate 200 mg oral tablet (20 sources) Antimalarial, Antirheumatic Agent Start: 2 End: 4 take 1 tablet by mouth once daily hydrOXYchloroQUINE (PLAQUENIL) 200 mg tablet Take 1 tablet by mouth once daily. 90 tablet 1 05/06/2022 08/18/2024 Discontinued Comment on above: Take 1 tablet by ranulfo th once daily. lisdexamfetamine dimesylate 70 mg oral capsule (19 sources) Central Nervous System Stimulant Start: 2 End: 4 take 1 capsule by mouth once daily lisdexamfetamine (VYVANSE) 70 mg capsule Indications: Concentration deficit Take 1 capsule by mouth once daily for 30 days. 30 capsule 08/14/2022 08/18/2024 Discontinued Comment on above: Take 1 capsule by mo [facility] once daily for 30 days. predniSONE 20 mg oral tablet (2 sources) Start: 2 End: 2 take 1 tablet by mouth once daily at mealtime predniSONE (DELTASONE) 20 mg tablet Take 1 tablet by mouth once daily. Take with food 5 tablet 0 01/29/2022 05/06/2022 Discontinued Comment on above: Take 1 tablet by ranulfo once daily. Take with food Problems Active Problems Problem Classification Problem Date Documented Da te Episodic/Chronic Abdominal pain (2 sources) Finding of sensation of abdomen; Translations: [Unspecified abdominal pain] Episodic Acquired foot deformities (1 source) Hallux valgus; Translations: [Bunion of right foot] Episodic Deficiency and other anemia (1 source) Anemia; Translations: [Anemia, unspecified] 09-15-2024 Episodic Gastrointestinal hemorrhage (2 sources) Rectal hemorrhage; Translations: [Hemorrhage of anus and rectum] Episodic Headache; including migraine (20 sources) Migraine without aura; Translations: [Migraine without aura, not intractable, without status migrainosus] Onset: 10-20-2007 11-24-2019 Chronic Heart valve disorders (20 sources) Rheumatic mitral valve disease, unspecified; Translations: [Mitral valve disorders] Onset: 05-10-2006 05-10-2006 Chronic Osteoarthritis (20 sources) Arthritis; Translations: [Unspecified osteoarthritis, unspecified site] Onset: 08-11-2022 Chronic Other gastrointestinal disorders (2 sources) Diarrhea; Translations: [Diarrhea, unspecified] Episodic Other nervous system disorders (20 sources) Disturbance of attention; Translations: [Attention and concentration deficit] Onset: 08-11-2022 Chronic Other nervous system disorders (1 source) Attention and concentration deficit; Translations: [Concentration deficit] Onset: 08-11-2022 Chronic Other non-traumatic joint disorders (5 sources) Bilateral pain of joint of hands; Translations: [Pain in joints of right hand] Onset: 08-24-2024 08-24-2024 Episodic Other screening for suspected conditions (not mental disorders or infectious disease) (1 source) Cancer cervix screening status; Translations: [Encounter for screening for malignant neoplasm of cervix] Episodic Otitis media and related conditions (2 sources) Chronic serous otitis media of left ear; Translations: [Chronic serous otitis media, left ear] Onset: 08-18-2024 08-18-2024 Chronic Thyroid disorders (20 sources) Thyroid nodule; Translations: [Nontoxic single thyroid nodule] Onset: 08-11-2022 08-11-2022 Chronic Past or Other Problems Problem Classification Problem Date Documented Date Episodic/Chronic Cardiac dysrhythmias (6 sources) Tachycardia; Translations: [Tachycardia, unspecified] Onset: 05-10-2006 Resolved: 06-13-2013 06-13-2013 Episodic Contraceptive and procreative management (20 sources) Patient encounter status; Translations: [Encounter for initial prescription of contraceptive pills] Onset: 07-30-2017 07-30-2017 Episodic Diabetes mellitus without complication (20 sources) Hyperglycemia; Translations: [Hyperglycemia, unspecified] Onset: 08-11-2022 08-11-2022 Episodic Headache; including migraine (6 sources) Headache; Translations: [Headache] Onset: 11-30-2005 Resolved: 06-13-2013 06-13-2013 Episodic Menstrual disorders (6 sources) Dysmenorrhea; Translations: [Dysmenorrhea, unspecified] Resolved: 06-13-2013 06-13-2013 Chronic Miscellaneous mental health disorders (6 sources) Emotional problems; Translations: [Other symptoms and signs involving emotional state] Onset: 10-06-2006 Resolved: 06-13-2013 06-13-2013 Episodic Other connective tissue disease (20 sources) Pain in both feet; Translations: [Pain in right foot] Onset: 07-30-2017 07-30-2017 Episodic Other non-traumatic joint disorders (20 sources) Multiple joint pain; Translations: [Pain in unspecified joint] Onset: 08-11-2022 08-11-2022 Episodic Other skin disorders (20 sources) Loss of hair; Translations: [Nonscarring hair loss, unspecified] Onset: 08-11-2022 08-11-2022 Episodic Results Test Name Value Interpretation Reference Range Kimberlyn Vitale 09-11-2024 CNPN Telephone (FAMPWS) ----- HOLLIE SMITH ([id number]) 1980 F Date Time Provider Department 09/11/24 WILMAR PHILLIP FAMPWS During your visit today, we recorded the following information about you: Raven Burton MA 09/11/2024 9:21 AM Signed Pt wrote into the office today with an update regarding her results from [facility] (scanned into chart). Please review message below and advise. Raven Burton MA Pt message: Hi , just wanted to follow up with you regarding the labs I had drawn checking iron, ferritin, iron saturation, and total iron binding capacity. Wanted to check if you received the results I faxed to the office. I double my iron pills to 2 tabs daily and taking with OJ to try and aid with absorption. Recently I have been fatigued, and struggle with energy levels when running. I feel like my body is heavy. I?ve not had this happen in the past. Not sure if it?s directly related to this? Just wondering what you suggest? What do you think about getting my B12 checked? Just remembered that my Dad had pernicious anemia and he consumed a lot meat/iron rich foods. Just a thought. Thanks, Lorri Smith Drawn on 08/19/24 Iron 31 Total iron binding capacity 378 Iron saturation 8.2% Ferritin 84 Malou Amador MA 09/12/2024 3:18 PM Signed Please see additional [facility] message. Form refaxed. Malou Amador MA Also, what are your thoughts about rechecking my cbc? Just curious if my RBC?s could be slightly low if it?s because of running? I completed my marathon a week and a half ago and my race and recovery has been my worst yet. Just wondering if they dropped more and that?s why I?m feeling these symptoms. Wilmar Phillip DO 09/15/2024 1:02 PM Signed Agree with Lorri, to recheck CBC as well as a vitamin b12 level. So we can gather more information on why her iron levels are so low leveled. DO López Bailey Beth, LPN 09/15/2024 1:28 PM Signed Phoned patient left message to return call and ask to speak to a nurse. Mallika Dowling RN 09/15/2024 2:06 PM Signed patient notified of information. patient needs to have labs complete at [facility]. Patient is planning on going Wednesday to have these done. Chary Zuñiga MA 09/15/2024 2:13 PM Signed Lab orders faxed to [facility]. Allergies As of Date: 09/11/2024 (No Known Allergies) Date Reviewed: 08/18/2024 Reviewed by: Merari Maddox LPN - Fully Assessed Reason for Visit: Results [95] Primary Visit Diagnosis:Anemia, unspecified type [D64.9] Order(s):COMPLETE BLOOD COUNT AND DIFFERENTIAL [SQCBCDIF] Order #: [id number] FUTURE VITAMIN B12 [SQB12] Order #: [id number] FUTURE Prescriptions as of 09/15/2024 - Amphetamine-Dextroampheta mine (ADDERALL) 30 mg tablet Take 1 tablet by mouth once daily for 30 days. - Amphetamine-Dextroampheta mine (ADDERALL) 30 mg tablet Take 1 tablet by mouth once daily for 30 days. Patient should start on September 15, 2024. - Amphetamine-Dextroampheta mine (ADDERALL) 30 mg tablet Take 1 tablet by mouth once daily for 30 days. Patient should start on October 16, 2024. - ofloxacin (FLOXIN) 0.3 % otic solution Use 5 Drops in both ears twice daily. - metoprolol tartrate, short acting, (LOPRESSOR) 25 mg tablet - tiZANidine (ZANAFLEX) 4 mg tablet Take 1 tablet by mouth every 8 hours as needed (muscle spasms). - scopolamine (TRANSDERM-SCOP) patch 1.5 mg/72 hr (delivers 1 mg over 3 days) Apply 1 Patch as directed every 72 hours. Apply patch to skin behind ear 4hrs prior to travel. Meds Comments as of 02/05/2021: Vit C, Vit D, Zinc, magnesium, daily multivitamin all OTC.m February 05, 2021 Shira Lou MA Problem List As Of Date 09/11/2024 Noted Resolved Dysmenorrhea [N94.6] 06/13/2013 Headache [R51] 11/30/2005 06/13/2013 MITRAL VALVE DISORDER [I05.9] 05/10/2006 Tachycardia, unspecified [R00.0] 05/10/2006 06/13/2013 Predominant disturbance of emotions [R45.89] 10/06/2006 06/13/2013 Migraine without aura [G43.009] 10/20/2007 Intractable migraine [G43.919] 09/10/2015 Well adult exam [Z00.00] 07/30/2017 Encounter for initial prescription of contracep*07/30/2017 Foot pain, bilateral [M79.671, M79.672] 07/30/2017 Arthralgia of multiple joints [M25.50] 08/11/2022 Thyroid nodule [E04.1] 08/11/2022 Hair loss [L65.9] 08/11/2022 Hyperglycemia [R73.9] 08/11/2022 Concentration deficit [R41.840] 08/11/2022 Inflammatory arthritis [M19.90] 08/11/2022 Arthralgia of both hands [M25.541, M25.542] 08/24/2024 Encounter Status:Closed by CHARY ZUÑIGA on 09/15/24 [facility] 08-31-2024 [facility] Telephone (FAMPWS) ----- HOLLIE SMITH ([id number]) 1980 F Date Time Provider Department 08/31/24 WILMAR PHILLIP During your visit today, we recorded the following information about you: Nicolle Carrera LPN 08/31/2024 12:36 PM Signed Pt calling regarding the followin)form to fill out from her physcial and then fax back. Pt is re-faxing form now. 2. Results of lab work done at [facility]. After review and giving results she is asking if there is anything she needs to do. Please advise pt on all above. GORGE Saba Beth, LPN 08/31/2024 2:33 PM Signed Patient calling to see if office received her fax a healthy living form she needs for her work. She faxed it today at noon or so. She is asking if the office could call her either way to let her know please. Malou Amador MA 08/31/2024 3:05 PM Signed Pt informed. Form placed on JG desk. JAI Goodman Jordan L, DO 09/07/2024 10:39 AM Signed This was signed DO Marjorie Bailey Jazzmin, MA 09/07/2024 3:00 PM Signed Faxed JAI Goodman Rilee, MA 09/11/2024 4:12 PM Signed Pt sent [employer] message on 09/11/24 asking to have form re-submitted. See message below. Raven Burton MA I checked with my employer and they did not receive the employee health paperwork. Would you be able to refactor it and try [phone]. This is a different number but they said it may be more reliable. Thanks Malou Amador MA 09/12/2024 3:35 PM Signed Refaxed Malou Amador MA Allergies As of Date: 08/31/2024 (No Known Allergies) Date Reviewed: 08/18/2024 Reviewed by: Merari Maddox LPN - Fully Assessed Reason for Visit: form/results [Other] Prescriptions as of 09/12/2024 - Amphetamine-Dextroampheta mine (ADDERALL) 30 mg tablet Take 1 tablet by mouth once daily for 30 days. - Amphetamine-Dextroampheta mine (ADDERALL) 30 mg tablet Take 1 tablet by mouth once daily for 30 days. Patient should start on September 15, 2024. - Amphetamine-Dextroampheta mine (ADDERALL) 30 mg tablet Take 1 tablet by mouth once daily for 30 days. Patient should start on October 16, 2024. - ofloxacin (FLOXIN) 0.3 % otic solution Use 5 Drops in both ears twice daily. - metoprolol tartrate, short acting, (LOPRESSOR) 25 mg tablet - tiZANidine (ZANAFLEX) 4 mg tablet Take 1 tablet by mouth every 8 hours as needed (muscle spasms). - scopolamine (TRANSDERM-SCOP) patch 1.5 mg/72 hr (delivers 1 mg over 3 days) Apply 1 Patch as directed every 72 hours. Apply patch to skin behind ear 4hrs prior to travel. Meds Comments as of 02/05/2021: Vit C, Vit D, Zinc, magnesium, daily multivitamin all OTC.m February 05, 2021 Shira Lou MA Problem List As Of Date 08/31/2024 Noted Resolved Dysmenorrhea [N94.6] 06/13/2013 Headache [R51] 11/30/2005 06/13/2013 MITRAL VALVE DISORDER [I05.9] 05/10/2006 Tachycardia, unspecified [R00.0] 05/10/2006 06/13/2013 Predominant disturbance of emotions [R45.89] 10/06/2006 06/13/2013 Migraine without aura [G43.009] 10/20/2007 Intractable migraine [G43.919] 09/10/2015 Well adult exam [Z00.00] 07/30/2017 Encounter for initial prescription of contracep*07/30/2017 Foot pain, bilateral [M79.671, M79.672] 07/30/2017 Arthralgia of multiple joints [M25.50] 08/11/2022 Thyroid nodule [E04.1] 08/11/2022 Hair loss [L65.9] 08/11/2022 Hyperglycemia [R73.9] 08/11/2022 Concentration deficit [R41.840] 08/11/2022 Inflammatory arthritis [M19.90] 08/11/2022 Arthralgia of both hands [M25.541, M25.542] 08/24/2024 Encounter Status:Closed by MALOU AMADOR on 09/07/24 [facility] 08-18-2024 CNOV Office Visit (FAMPWS ) ----- HOLLIE SMITH ([id number]) 1980 F Date Time Provider Department 08/18/24 1:40 PM [facility] During your visit today, we recorded the following information about you: Temperature Pulse Respiration Blood pressure 98 degrees 60/minute 12/minute 110/70 Weight Height Last Period 57.4 kg 1.67 m 07/24/24 Wilmar Phillip, DO 08/18/2024 2:50 PM Addendum Turmeric- curcumin 500-1000 mg 1-2 times a day with a meal Astelin 2 sprays each nostril 1-2 times a day If not better than ENT for eustachian tube dysfunction Mary technique Wilmar Phillip DO 08/24/2024 10:52 AM Signed CC: Hollie Smith is a 43 year old female who presents to the office for physical HPI: Joint pain, hands, chronic, wants to avoid being on chronic NSAIDs and immune modulator medications. Taking natural supplements as needed. ADD, long standing use of adderall intermittently, needing rx refilled. URI symptoms. Sick contacts. Will be traveling for a race upcoming. She is still trying to exercise. Nasal congestion and ear pressure and PND symptoms for the last few days. No fevers or chills. PAST MEDICAL HISTORY Diagnosis Date H/O exercise stress test 02/10/2021 stresst test echo-by Dr. Cole-EF 65% Heart murmur 04/29/2018 Migraine, unspecified, with intractable migraine, so stated, without mention of status migrainosus 2007 Migraine Mitral valve disorders(424.0) 2003 MVP Primary generalised (osteo)arthritis Rheumatoid arthritis (HCC) hands PAST SURGICAL HISTORY Procedure Laterality Date EXCISION GANGLION WRIST DORSAL/VOLAR PRIMARY RIGHT EXTRACTION, ERUPTED TOOTH OR EXPOSED ROOT (ELEVATION AND/OR FORCEPS REMOVAL) WISDOM IUD INSERTION (APPEALS NURSE DEPT)_*FL 04/11/2009 Mirena IUD REMOVAL (APPEALS NURSE DEPT)_*FL 2009 TONSILLECTOMY PRIMARY/SECONDARY Tonsillectomy Social History: Social History Tobacco Use Smoking status: Former Current packs/day: 0.00 Types: Cigarettes Start date: 12/23/2001 Quit date: 12/23/2002 Years since quittin.6 Smokeless tobacco: Never Vaping Use Vaping status: Never Used Substance Use Topics Alcohol use: Yes Comment: RARELY,NOT WHILE Drug use: No FAMILY HISTORY Problem Relation Age of Onset Lipids Mother Diabetes Mother Breast Cancer Mother 67 lumpectomy, slow growing cancer Barretts Esophagus Mother 69 Hypertension Father Cancer Father pancreatic Heart Maternal Grandmother bypass surgery Cancer Paternal Grandmother passed from bone marrow ca Heart Paternal Grandmother Heart Paternal Uncle 2 [place]'s Current Outpatient prescriptions: Amphetamine-Dextroampheta mine (ADDERALL) 30 mg tablet Take 1 tablet by mouth once daily for 30 days. [START ON 09/15/2024] Amphetamine-Dextroampheta mine (ADDERALL) 30 mg tablet Take 1 tablet by mouth once daily for 30 days. Patient should start on September 15, 2024. [START ON 10/16/2024] Amphetamine-Dextroampheta mine (ADDERALL) 30 mg tablet Take 1 tablet by mouth once daily for 30 days. Patient should start on October 16, 2024. doxycycline (VIBRA-TABS) 100 mg tablet Take 1 tablet by mouth two times a day for 10 days. ofloxacin (FLOXIN) 0.3 % otic solution Use 5 Drops in both ears twice daily. metoprolol tartrate, short acting, (LOPRESSOR) 25 mg tablet tiZANidine (ZANAFLEX) 4 mg tablet Take 1 tablet by mouth every 8 hours as needed (muscle spasms). scopolamine (TRANSDERM-SCOP) patch 1.5 mg/72 hr (delivers 1 mg over 3 days) Apply 1 Patch as directed every 72 hours. Apply patch to skin behind ear 4hrs prior to travel. Allergies: ALLERGIES No Known Allergies ROS: See HPI PE: 08/18/24 1359 BP: 110/70 Pulse: 60 Resp: 12 Temp: 36.7 ?C (98 ?F) TempSrc: Left Tympanic Weight: 57.4 kg (126 lb 8.7 oz) Height: 167 cm (5' 5.75 ) Gen: AANDO, NAD, non-toxic appearing, Pleasant, cooperative HEENT: NT/AC, PERRLA, EOMs intact b/l, nares congested b/l, pharynx without erythema, exudate or lesions. Uvula midline. EACs without erythema or debris. TMs pearly barnes with intact landmarks on right, left TM with serous effusion and erythema without rupture. Neck: supple, No cervical LAD, no thyromegaly, no carotid bruits CV: RRR, normal S1 and S2, no murmurs, no gallops, no rubs, Pulses 2+ and symmetric in UE and LE b/l Lungs: normal respiratory effort, CTA b/l, no wheezing or rhonchi or rales Abd: soft, NT, ND, +BS, no hepatosplenomegaly MS: FROM all 4 extremities Neuro: CN II-XII intact b/l, strength 5/5 b/l UE and LE, DTRs 2/4 UE and LE, sensation intact. Skin: warm, dry, intact, No rashes or lesions on exposed skin. No edema, normal pulses ASSESSMENT/PLAN: 1. Well adult exam - ICD9: V70.0, ICD10: Z00.00 (primary diagnosis) - Counseled on healthy diet and regular exercise - HEMOGLOBIN A1C - CORTISOL, SERUM - INSULIN ASSAY BLOOD - C-PEPTI (more content not included)... Normal [facility] 01-03-2024 JERIN Telephone (FAMPWS) ----- SARAHHOLLIE ([id number]) 1980 F Date Time Provider Department 01/03/24 NICOLE RUTH During your visit today, we recorded the following information about you: Jennifer Salas LPN 01/03/2024 11:58 AM Signed Pt calls to report that she was advised by [facility] that rx for Adderall 30 mg was not received. Called [facility] to verify and was advised by pharmacist that they did have the rx and it was ready for fern picker. Notified pt of same. Jennifer Salas LPN Allergies As of Date: 01/03/2024 (No Known Allergies) Date Reviewed: 08/16/2023 Reviewed by: Merari Maddox LPN - Fully Assessed Reason for Visit: Medication Problem [65] Prescriptions as of 01/03/2024 - Amphetamine-Dextroampheta mine (ADDERALL) 30 mg tablet Take 1 tablet by mouth once daily for 30 days. - Amphetamine-Dextroampheta mine (ADDERALL) 30 mg tablet Take 1 tablet by mouth once daily for 30 days. Do not start before July 31, 2023. - Amphetamine-Dextroampheta mine (ADDERALL) 30 mg tablet Take 1 tablet by mouth once daily for 30 days. - ofloxacin (FLOXIN) 0.3 % otic solution Use 5 Drops in both ears twice daily. - metoprolol tartrate, short acting, (LOPRESSOR) 25 mg tablet - lisdexamfetamine (VYVANSE) 70 mg capsule Take 1 capsule by mouth once daily for 30 days. - tiZANidine (ZANAFLEX) 4 mg tablet Take 1 tablet by mouth every 8 hours as needed (muscle spasms). - scopolamine (TRANSDERM-SCOP) patch 1.5 mg/72 hr (delivers 1 mg over 3 days) Apply 1 Patch as directed every 72 hours. Apply patch to skin behind ear 4hrs prior to travel. - hydrOXYchloroQUINE (PLAQUENIL) 200 mg tablet Take 1 tablet by mouth once daily. Meds Comments as of 02/05/2021: Vit C, Vit D, Zinc, magnesium, daily multivitamin all OTC.m February 05, 2021 Shira Lou MA Problem List As Of Date 01/03/2024 Noted Resolved Dysmenorrhea [N94.6] 06/13/2013 Headache [R51] 11/30/2005 06/13/2013 MITRAL VALVE DISORDER [I05.9] 05/10/2006 Tachycardia, unspecified [R00.0] 05/10/2006 06/13/2013 Predominant disturbance of emotions [R45.89] 10/06/2006 06/13/2013 Migraine without aura [G43.009] 10/20/2007 Intractable migraine [G43.919] 09/10/2015 Well adult exam [Z00.00] 07/30/2017 Encounter for initial prescription of contracep*07/30/2017 Foot pain, bilateral [M79.671, M79.672] 07/30/2017 Arthralgia of multiple joints [M25.50] 08/11/2022 Thyroid nodule [E04.1] 08/11/2022 Hair loss [L65.9] 08/11/2022 Hyperglycemia [R73.9] 08/11/2022 Concentration deficit [R41.840] 08/11/2022 Inflammatory arthritis [M19.90] 08/11/2022 Encounter Status:Closed by JENNIFER SALAS on 01/03/24 Normal [facility] Vital Signs Date Time Vital Sign Value Performing Clinician Dylan up 08-18-2024 13:59-0400 Body height 167 cm [employer] Work Phone: [facility] 08-18-2024 13:59-0400 Body mass index (BMI) [Ratio] 20.58 kg/m2 [employer] Work Phone: [facility] 08-18-2024 13:59-0400 Body temperature 98.01 [degF] [employer] Work Phone: [facility] 08-18-2024 13:59-0400 Body weight 57.4 kg [employer] Work Phone: [facility] 08-18-2024 13:59-0400 Diastolic blood pressure 70 mm[Hg] [employer] Work Phone: [facility] 08-18-2024 13:59-0400 Heart rate 60 /min Wilmar Phillip DO Work Phone: [facility] 08-18-2024 13:59-0400 Respiratory rate 12 /min Wilmar Phillip DO Work Phone: [facility] 08-18-2024 13:59-0400 Systolic blood pressure 110 mm[Hg] Wilmar Phillip DO Work Phone: [facility] 08-16-2023 13:11-0400 Body height 163.5 cm Wilmar Phillip DO Work Phone: [facility] 08-16-2023 13:11-0400 Body temperature 97 [degF] Wilmar Phillip DO Work Phone: [facility] 08-16-2023 13:11-0400 Body weight 57.15 kg Wilmar Phillip DO Work Phone: [facility] 08-16-2023 13:11-0400 Diastolic blood pressure 80 mm[Hg] Wilmar Phillip DO Work Phone: [facility] 08-16-2023 13:11-0400 Heart rate 64 /min Wilmar Phillip DO Work Phone: [facility] 08-16-2023 13:11-0400 Respiratory rate 16 /min Wilmar Phillip DO Work Phone: [facility] 08-16-2023 13:11-0400 Systolic blood pressure 130 mm[Hg] Wilmar Phillip DO Work Phone: [facility] 12-01-2022 13:09-0500 Body height 165.1 cm Diamond Garcia APRN.FORCE ADJUSTMENT SUPERVISOR Work Phone: [facility] 12-01-2022 13:09-0500 Body weight 58.33 kg Diamond Garcia APRN.FORCE ADJUSTMENT SUPERVISOR Work Phone: [facility] 12-01-2022 13:09-0500 Diastolic blood pressure 62 mm[Hg] Diamond Garcia APRN.FORCE ADJUSTMENT SUPERVISOR Work Phone: [facility] 12-01-2022 13:09-0500 Systolic blood pressure 118 mm[Hg] Diamond Garcia BOILER ROOM OPERATOR.FORCE ADJUSTMENT SUPERVISOR Work Phone: [facility] 05-21-2022 14:58-0400 Body weight 57.52 kg Johnykarson Ramos BOILER ROOM OPERATOR.FORCE ADJUSTMENT SUPERVISOR Work Phone: [facility] 05-21-2022 14:58-0400 Diastolic blood pressure 64 mm[Hg] Johny Shepherdman BOILER ROOM OPERATOR.FORCE ADJUSTMENT SUPERVISOR Work Phone: [facility] 05-21-2022 14:58-0400 Heart rate 69 /min Johnykarson Shepherdman BOILER ROOM OPERATOR.FORCE ADJUSTMENT SUPERVISOR Work Phone: [facility] 05-21-2022 14:58-0400 Respiratory rate 16 /min Johny Shepherdman BOILER ROOM OPERATOR.FORCE ADJUSTMENT SUPERVISOR Work Phone: [facility] 05-21-2022 14:58-0400 SaO2% (BldA) [Mass fraction] 96 % Johnykarson Shepherdman BOILER ROOM OPERATOR.FORCE ADJUSTMENT SUPERVISOR Work Phone: [facility] 05-21-2022 14:58-0400 Systolic blood pressure 102 mm[Hg] Johny Shepherdman BOILER ROOM OPERATOR.FORCE ADJUSTMENT SUPERVISOR Work Phone: [facility] Encounters Encounter Date Encounter Type Care Provider Facility Start: 09-11-2024 End: 09-11-2024 ambulatory Wilmar Phillip DO Work Phone: [facility] Comment on above: Lab results done at [facility] re: low iron Start: 09-11-2024 End: 09-15-2024 Telephone encounter Wilmar Hallon DO Work Phone: [facility] Comment on above: Results Start: 08-31-2024 End: 09-07-2024 Telephone encounter Wilmar Hallon DO Work Phone: [facility] Comment on above: form/results Start: 08-18-2024 End: 08-18-2024 ambulatory WILMAR PHILLIP Facility:[facility] Start: 08-18-2024 End: 08-18-2024 Patient encounter procedure Wilmar Phillip DO Work Phone: [facility] Comment on above: Well adult exam (Alexa earl Dx); Concentration deficit; Hyperglycemia; Left chronic serous otitis media; Inflammatory arthritis; Arthralgia of both hands Start: 08-18-2024 End: 08-18-2024 Patient encounter status Wilmar Phillip DO Work Phone: [facility] Work Phone: Start: 08-16-2024 End: 08-21-2024 ambulatory Wilmar Phillip DO Work Phone: [facility] [place] Start: 07-18-2024 End: 07-19-2024 Refill Wilmar Phillip DO Work Phone: [facility] Comment on above: Refill Request Start: 03-08-2024 Refill Wilmar peres DO Work Phone: [facility] Comment on above: Refill Request Start: 01-03-2024 Telephone encounter Nicole Fischer son BOILER ROOM OPERATOR.FORCE ADJUSTMENT SUPERVISOR Work Phone: [facility] [place] Comment on above: Medication Problem Start: 11-02-2023 Refill Wilmar peres DO Work Phone: [facility] Comment on above: Refill Request Start: 09-28-2023 Refill Wilmar peres DO Work Phone: [facility] [place] Comment on above: Refill Request Start: 09-09-2023 Telephone encounter Wilmar cumminswilliam DO Work Phone: [facility] Comment on above: Order Request Start: 08-18-2023 ambulatory Wilmar peres DO Work Phone: [facility] [place] Start: 08-16-2023 End: 08-16-2023 Patient encounter procedure Wilmar Phillip DO Work Phone: [facility] Comment on above: Well adult exam (Alexa earl Dx); Concentration deficit Start: 08-16-2023 End: 08-16-2023 Patient encounter status Wilmar Phillip DO Work Phone: [facility] Work Phone: Start: 05-05-2023 Telephone encounter Wilmar biswas DO Work Phone: [facility] [place] Comment on above: Compression Stocking Order Start: 04-27-2023 Telephone encounter Wilmar biswas DO Work Phone: [facility] [place] Comment on above: Orders Start: 03-08-2023 ambulatory No One (Historical) Ref erring Physician Start: 02-22-2023 Telephone encounter Wilmar biswas DO Work Phone: [facility] [place] Comment on above: requesting a referra l (podiatry) Start: 12-22-2022 Refill Nicole Ruth APRN.[facility] Work Phone: [facility] Comment on above: Refill Request Start: 12-09-2022 Refill Nicolekhanh Ruth APRN.[facility] Work Phone: [facility] [place] Comment on above: Refill Request Start: 12-01-2022 End: 12-01-2022 Patient encounter procedure Diamond Garcia APRN.[facility] Work Phone: OB/Gynecology Comment on above: Encounter for gyneco logical examination (general) (routine) without abnormal findings (Primary Dx); Screening for cervical cancer; Encounter for screening for human papillomavirus (HPV) Start: 12-01-2022 End: 12-01-2022 Patient encounter status Diamond Garcia APRN.FORCE ADJUSTMENT SUPERVISOR Work Phone: OB/Gynecology Start: 11-26-2022 Telephone encounter Wilmar biswas DO Work Phone: [facility] Comment on above: Patient Update (Orde r was faxed over to [facility] for dermatology referral. ) Start: 10-20-2022 Telephone encounter Wilmar Hernandez zulay Work Phone: [facility] Comment on above: referral to Dermatol ogy Start: 09-11-2022 Telephone encounter Wilmar Hernandez zulay DO Work Phone: [facility] [place] Comment on above: Results Start: 09-03-2022 Telephone encounter Wilmar biswas DO Work Phone: [facility] Comment on above: Patient Question; Or ders Start: 08-14-2022 Telephone encounter Wilmar biswas DO Work Phone: [facility] Comment on above: Medication Update Start: 08-06-2022 Refill Wilmar peres DO Work Phone: [facility] Comment on above: Refill Request Start: 07-20-2022 Refill Wilmar peres DO Work Phone: [facility] [place] Comment on above: Refill Request Start: 07-11-2022 Refill Johny reese BOILER ROOM OPERATOR.FORCE ADJUSTMENT SUPERVISOR Work Phone: [facility] Comment on above: Refill Request Start: 06-30-2022 Refill Johny reese BOILER ROOM OPERATOR.FORCE ADJUSTMENT SUPERVISOR Work Phone: [facility] Comment on above: Refill Request Start: 06-01-2022 Telephone encounter Wilmar biswas DO Work Phone: [facility] [place] Comment on above: requesting medicatio n Start: 05-22-2022 Telephone encounter Johny Olson BOILER ROOM OPERATOR.FORCE ADJUSTMENT SUPERVISOR Work Phone: [facility] [place] Comment on above: Results Start: 05-21-2022 End: 05-21-2022 Patient encounter procedure Johny Ramos BOILER ROOM OPERATOR.FORCE ADJUSTMENT SUPERVISOR Work Phone: [facility] [place] Comment on above: Abdominal cramping ( Primary Dx); Diarrhea, unspecified type; Rectal bleeding Start: 05-21-2022 Telephone encounter Johny Olson BOILER ROOM OPERATOR.FORCE ADJUSTMENT SUPERVISOR Work Phone: [facility] Comment on above: Orders Start: 05-14-2022 Chart abstracting Jose christian BOILER ROOM OPERATOR.FORCE ADJUSTMENT SUPERVISOR Work Phone: Rheumatology Start: 05-07-2022 Telephone encounter Fredy Benz MD Work Phone: Rheumatology Comment on above: Lab Orders Start: 05-06-2022 End: 05-06-2022 ambulatory Jose Narendra OWENS.JERI Work Phone: Rheumatology Comment on above: Inflammatory arthrit is (Primary Dx); Encounter for long-term (current) use of medications Start: 05-06-2022 End: 05-06-2022 Telemedicine consultation with patient Jose Mackey DANIA Work Phone: [place] Start: 03-30-2022 Refill Nicole warren BOILER ROOM OPERATOR.FORCE ADJUSTMENT SUPERVISOR Work Phone: [facility] Comment on above: Refill Request Start: 07-30-2017 Patient encounter status Jenn Layne BOILER ROOM OPERATOR.FORCE ADJUSTMENT SUPERVISOR Work Phone: [facility] Work Phone: Start: 07-30-2017 Encounter for genera l adult medical examination without abnormal findings WILMAR PHILLIP [facility] Procedures Date Procedure Procedure Detail Performing Clinician Start: 05-06-2022 Adult depression screening assessment Jose Mackey APRN.FORCE ADJUSTMENT SUPERVISOR Work Phone: Start: 09-29-2021 Adult depression screening assessment Nicole Layne BOILER ROOM OPERATOR.FORCE ADJUSTMENT SUPERVISOR Work Phone: Plan of Treatment Date Care Activity Detail Author Start: 12-01-2027 HPV TESTING HPV TESTING [facility] Start: 12-01-2027 PAP TESTING PAP TESTING [facility] Start: 12-01-2027 Screening for malign ant neoplasm of cervix [facility] Start: 09-15-2024 End: 12-15-2024 CBC W Auto Differential panel - Blood COMPLETE BLOOD COUNT AND DIFFERENTIAL Lab Routine Anemia, unspecified type Expected: 09/15/2024, Expires: 12/15/2024 [facility] Work Phone: Comment on above: Expected: 09/15/2024 , Expires: 12/15/2024 Start: 09-15-2024 End: 12-15-2024 Cobalamin (Vitamin B12) [Mass/volume] in Serum or Plasma VITAMIN B12 Lab Routine Anemia, unspecified type Expected: 09/15/2024, Expires: 12/15/2024 [facility] Comment on above: Expected: 09/15/2024 , Expires: 12/15/2024 Start: 08-18-2024 End: 11-17-2024 C peptide [Mass/volume] in Serum or Plasma C-PEPTIDE BLD Lab Routine Well adult exam Hyperglycemia Expected: 08/18/2024, Expires: 11/17/2024 [facility] Comment on above: Expected: 08/18/2024 , Expires: 11/17/2024 Start: 08-18-2024 End: 11-17-2024 Cortisol [Mass/volume] in Serum or Plasma CORTISOL, SERUM Lab Routine Well adult exam Hyperglycemia Expected: 08/18/2024, Expires: 11/17/2024 [facility] Comment on above: Expected: 08/18/2024 , Expires: 11/17/2024 Start: 08-18-2024 End: 11-17-2024 Ferritin [Mass/volume] in Serum or Plasma FERRITIN Lab Routine Well adult exam Expected: 08/18/2024, Expires: 11/17/2024 [facility] Comment on above: Expected: 08/18/2024 , Expires: 11/17/2024 Start: 08-18-2024 End: 11-17-2024 Hemoglobin A1c in Blood HEMOGLOBIN A1C Lab Routine Well adult exam Hyperglycemia Expected: 08/18/2024, Expires: 11/17/2024 [facility] Work Phone: Comment on above: Expected: 08/18/2024 , Expires: 11/17/2024 Start: 08-18-2024 End: 11-17-2024 Insulin [Units/volume] in Serum or Plasma INSULIN ASSAY BLOOD Lab Routine Well adult exam Hyperglycemia Expected: 08/18/2024, Expires: 11/17/2024 [facility] Comment on above: Expected: 08/18/2024 , Expires: 11/17/2024 Start: 08-18-2024 End: 11-17-2024 Iron and Iron binding capacity panel - Serum or Plasma IRON AND TIBC Lab Routine Well adult exam Expected: 08/18/2024, Expires: 11/17/2024 [facility] Comment on above: Expected: 08/18/2024 , Expires: 11/17/2024 Start: 08-18-2024 End: 08-18-2024 Patient encounter procedure 08/18/2024 1:40 PM EDT Office Visit [facility] [address] [place], [place] [id number] Wilmar Phillip DO [address] [place], [place] [id number] ANNUAL [facility] [place] Comment on above: ANNUAL Start: 07-23-2024 Covid-19 Vaccine () Covid-19 Vaccine () [facility] Start: 07-23-[address] [facility] Start: 11-22-2023 Behavioral Health Screening Behavioral Health Screening [facility] Start: 11-22-2023 Depression Assessment Depression Ass essment [facility] Start: 07-23-2023 Covid-19 Vaccine ( season) Covid-19 Vaccine () [facility] Start: 07-23-2023 Influenza vaccination Influenza Vacc ine (#1) [facility] Start: 05-06-2023 Adult depression scr eening assessment DEPRESSION SCREENING [facility] Start: 04-29-2023 HPV TESTING HPV TESTING [facility] Start: 04-29-2023 PAP TESTING PAP TESTING [facility] Start: 11-22-2022 DEPRESSION ASSESSMENT DEPRESSION ASS ESSMENT [facility] Start: 2022 Mammography [facility] Start: 2022 Screening for malign ant neoplasm of breast Mammogram Screening [facility] Start: 09-29-2022 Adult depression scr eening assessment DEPRESSION SCREENING [facility] Start: 09-29-2022 Urine microalbumin profile [facility] Start: 07-23-2022 Influenza vaccination INFLUENZA (#1) [facility] Start: 05-21-2022 End: 07-21-2022 CBC W Auto Differential panel - Blood CBC + DIFF Lab Routine Rectal bleeding Expected: 05/21/2022, Expires: 07/21/2022 [facility] Work Phone: Comment on above: Expected: 05/21/2022 , Expires: 07/21/2022 Start: 05-06-2022 End: 05-05-2023 Alanine aminotransferase [Enzymatic activity/volume] in Serum or Plasma ALT/SGPT Lab Routine Inflammatory arthritis Encounter for long-term (current) use of medications Expected: 05/06/2022 (Approximate), Expires: 05/05/2023 [facility] Work Phone: Comment on above: Expected: 05/06/2022 (Approximate), Expires: 05/05/2023 Start: 05-06-2022 End: 05-05-2023 Albumin [Mass/volume] in Serum or Plasma ALBUMIN BLD Lab Routine Inflammatory arthritis Encounter for long-term (current) use of medications Expected: 05/06/2022 (Approximate), Expires: 05/05/2023 [facility] Work Phone: Comment on above: Expected: 05/06/2022 (Approximate), Expires: 05/05/2023 Start: 05-06-2022 End: 05-05-2023 Aspartate aminotransferase [Enzymatic activity/volume] in Serum or Plasma AST/SGOT BLD Lab Routine Inflammatory arthritis Encounter for long-term (current) use of medications Expected: 05/06/2022 (Approximate), Expires: 05/05/2023 [facility] Work Phone: Comment on above: Expected: 05/06/2022 (Approximate), Expires: 05/05/2023 Start: 05-06-2022 End: 05-05-2023 CBC W Auto Differential panel - Blood CBC + DIFF Lab Routine Inflammatory arthritis Encounter for long-term (current) use of medications Expected: 05/06/2022 (Approximate), Expires: 05/05/2023 [facility] Work Phone: Comment on above: Expected: 05/06/2022 (Approximate), Expires: 05/05/2023 Start: 05-06-2022 End: 05-05-2023 CREATININE BLD CREATININE BLD Lab Routine Inflammatory arthritis Encounter for long-term (current) use of medications Expected: 05/06/2022 (Approximate), Expires: 05/05/2023 [facility] Work Phone: Comment on above: Expected: 05/06/2022 (Approximate), Expires: 05/05/2023 Start: 01-08-2022 COVID-19 VACCINE (3 - Booster for Pfizer series) COVID-19 VACCINE (3 - Booster for Pfizer series) [facility] Start: 01-08-2022 Covid-19 Vaccine (3 - Pfizer series) Covid-19 Vaccine (3 - Pfizer series) [facility] Start: 12-11-2021 COVID-19 VACCINE (3 - Pfizer risk series) COVID-19 VACCINE (3 - Pfizer risk series) [facility] Start: 11-22-2021 DEPRESSION ASSESSMENT DEPRESSION ASS ESSMENT [facility] Start: 2001 SHINGRIX VACCINE (1 of 2) WILKINS GRIX VACCINE (1 of 2) [facility] Start: 2000 Anxiety Screening Anxiety Screening [facility] Start: 2000 Depression Screening Depression Scre ening [facility] Start: 2000 HEPATITIS C SCREENING HEPATITIS C [facility] Start: 2000 Hepatitis C screening Hepatitis C [facility] Start: 1988 PNEUMOCOCCAL (1 - PCV) PNEUMOCOCCAL (1 - PCV) [facility] End: 09-15-2025 DBT Breast - bilateral screening KAYCEE SCREENING W KEV Radiology Routine Encounter for screening mammogram for breast cancer 1 Occurrences starting 08/16/2024 until 09/15/2025 [facility] Work Phone: Comment on above: 1 Occurrences starti ng 08/16/2024 until 09/15/2025 ENTERIC BACTERIAL PA LINDA BY PCR ENTERIC BACTERIAL PANEL BY PCR Lab Routine Abdominal cramping Diarrhea, unspecified type Rectal bleeding Ordered: 05/21/2022 [facility] Work Phone: Comment on above: Ordered: 05/21/2022 Helicobacter pylori Ag [Presence] in Stool by Immunoassay H PYLORI AG BY EIA,STOOL Microbiology Routine Abdominal cramping Diarrhea, unspecified type Rectal bleeding Ordered: 05/21/2022 [facility] Work Phone: Comment on above: Ordered: 05/21/2022 Hemoglobin.gastroint estina l.lower [Presence] in Stool by Immunoassay FECAL OCCULT BLOOD TEST Lab Routine Abdominal cramping Diarrhea, unspecified type Rectal bleeding Ordered: 05/21/2022 [facility] Work Phone: Comment on above: Ordered: 05/21/2022 End: 09-16-2024 KAYCEE SCREENING KAYCEE SCREENING Radiology Routine Encounter for screening mammogram for breast cancer 1 Occurrences starting 08/18/2023 until 09/16/2024 [facility] Work Phone: Comment on above: 1 Occurrences starti ng 08/18/2023 until 09/16/2024 End: 10-03-2023 KAYCEE SCREENING W KEV KAYCEE SCREENING W KEV Radiology Routine Screening mammogram for breast cancer 1 Occurrences starting 09/03/2022 until 10/03/2023 [facility] Work Phone: Comment on above: 1 Occurrences starti ng 09/03/2022 until 10/03/2023 End: 10-08-2024 KAYCEE SCREENING W KEV KAYCEE SCREENING W KEV Radiology Routine Screening mammogram for breast cancer 1 Occurrences starting 09/09/2023 until 10/08/2024 [facility] Work Phone: Comment on above: 1 Occurrences starti ng 09/09/2023 until 10/08/2024 PAP FLUID CERVICAL SCREENING PAP FLUID CERVICAL SCREENING Lab Routine Encounter for gynecological examination (general) (routine) without abnormal findings Screening for cervical cancer Encounter for screening for human papillomavirus (HPV) 12/01/2022 1:59 PM EST [facility] Work Phone: End: 06-20-2023 Us abdominal real time w/image documentation US ABDOMEN COMPLETE Radiology STAT Abdominal cramping Diarrhea, unspecified type Rectal bleeding 1 Occurrences starting 05/21/2022 until 06/20/2023 [facility] Work Phone: Comment on above: 1 Occurrences starti ng 05/21/2022 until 06/20/2023 [facility] Immunizations Immunization Date Immunization Notes Care Provider Jaylen vasquez 09-17-2023 influenza virus vaccine, unspecified formulation Wilmar Phillip DO Work Phone: [facility] 09-23-2022 influenza virus vaccine, unspecified formulation Wilmar Phillip DO Work Phone: [facility] 09-18-2019 influenza, seasonal, injectable Nicole Zurawick BOILER ROOM OPERATOR.[facility] Work Phone: [facility] Work Phone: 09-29-2012 tetanus toxoid, redu ariel diphtheria toxoid, and acellular pertussis vaccine, adsorbed Nicole Zurawick BOILER ROOM OPERATOR.[facility] Work Phone: [facility] Work Phone: 09-22-2010 influenza virus vaccine, unspecified formulation Nicole Zurawick BOILER ROOM OPERATOR.[facility] Work Phone: [facility] Work Phone: 06-17-2006 tuberculin skin test ; purified protein derivative solution, intradermal Wilmar Phillip DO Work Phone: [facility] 10-22-2004 hepatitis B vaccine, adult dosage Nicole Zurawick BOILER ROOM OPERATOR.[facility] Work Phone: [facility] Work Phone: 09-22-2004 influenza virus vaccine, whole virus Nicole Zurawick BOILER ROOM OPERATOR.[facility] Work Phone: [facility] Work Phone: 07-22-2004 hepatitis B vaccine, adult dosage Nicole Zurawick BOILER ROOM OPERATOR.[facility] Work Phone: [facility] Work Phone: 06-22-2004 diphtheria and tetan us toxoids, adsorbed for pediatric use Nicole Zurawick BOILER ROOM OPERATOR.[facility] Work Phone: [facility] Work Phone: 06-22-2004 hepatitis B vaccine, adult dosage Nicole Zurawick BOILER ROOM OPERATOR.[facility] Work Phone: [facility] Work Phone: Payers Date Payer Category Payer Private Health Insurance JOSR KYLE [facility] [id number] 2022-Present [phone] [address] [place] [address] O [id number] 2022 Private Health Insurance [id number] 2019 Unknown MMO MMO [employer] xxxx [id number] 2019-Present [address] [place] [address] PPO [id number] 2019 Unknown MMO MMO [employer] x[employer] [id number] 2019-Present [address] [place] [address] PPO [id number] Social History Date Type Detail Facility Start: 01-12-2012 End: 08-18-2024 Tobacco smoking status NHIS Ex-smoker [facility] Start: 12-23-2001 End: 12-23-2002 History of tobacco use Current smoker [facility] Start: 12-23-2001 End: 12-23-2002 History of tobacco use Cigarette Smoker [facility] Start: 11-07-2021 End: 08-18-2024 Alcohol intake Current drinker of alcohol (finding) [facility] Start: 02-24-2008 History SDOH Alcohol Comment RARELY,NOT WHILE [facility] Start: 1982 Sex Assigned At Not on file [facility] Start: 05-11-2022 End: 08-10-2022 Exposure to SARS-CoV-2 (event) Not sure [facility] Start: 01-12-2012 End: 08-18-2024 Tobacco use and exposure Smokeless tobacco non-user [facility] Start: 07-15-2023 End: 08-16-2023 History of Social function [facility] Work Phone: Start: 07-15-2023 End: 08-16-2023 Tobacco use panel [facility] Work Phone: Adult Depression Screening Assessment 0 [facility] Work Phone: Clinical Notes 10-06-2006 to 09-15-2024 Telephone Encounter - Chary Zuñiga MA - 09/15/2024 2:11 PM EDTTelephone Encounter - Chary Zuñiga MA - 09/15/2024 2:11 PM EDTTelephone Encounter - Mallika Dowling RN - 09/15/2024 2:05 PM EDT Note Date & Type Note Facility 09-15-2024 Telephone encounter Note Lab orders faxed to [facility]. [facility] 09-15-2024 Miscellaneous Notes Lab orders faxed to [facility]. patient notified of information. patient needs to have labs complete at [facility]. Patient is planning on going Wednesday to have these done. Phoned patient left message to return call and ask to speak to a nurse. Agree with Lorri, to recheck CBC as well as a vitamin b12 level. So we can gather more information on why her iron levels are so low leveled. Wilmar Phillip DO Please see additional [facility] message. Form refaxed. Malou Amador MA Also, what are your thoughts about rechecking my cbc? Just curious if my RBC s could be slightly low if it s because of running? I completed my marathon a week and a half ago and my race and recovery has been my worst yet. Just wondering if they dropped more and that s why I m feeling these symptoms. Pt wrote into the office today with an update regarding her results from [facility] (scanned into chart). Please review message below and advise. Raven Burton MA Pt message: Hi , just wanted to follow up with you regarding the labs I had drawn checking iron, ferritin, iron saturation, and total iron binding capacity. Wanted to check if you received the results I faxed to the office. I double my iron pills to 2 tabs daily and taking with OJ to try and aid with absorption. Recently I have been fatigued, and struggle with energy levels when running. I feel like my body is heavy. I ve not had this happen in the past. Not sure if it s directly related to this? Just wondering what you suggest? What do you think about getting my B12 checked? Just remembered that my Dad had pernicious anemia and he consumed a lot meat/iron rich foods. Just a thought. Thanks, Lorri Smith Drawn on 08/19/24 Iron 31 Total iron binding capacity 378 Iron saturation 8.2% Ferritin 84 documented in this encounter [facility] 09-15-2024 Telephone encounter Note patient notified of information. patient needs to have labs complete at [facility]. Patient is planning on going Wednesday to have these done. [facility] 09-15-2024 Telephone encounter Note Phoned patient left message to return call and ask to speak to a nurse. [facility] 09-15-2024 Telephone encounter Note Agree with Lorri, to recheck CBC as well as a vitamin b12 level. So we can gather more information on why her iron levels are so low leveled. Wilmar Phillip DO [facility] 09-12-2024 Telephone encounter Note Please see additional MC message. Form refaxed. Malou Amador MA Also, what are your thoughts about rechecking my cbc? Just curious if my RBC s could be slightly low if it s because of running? I completed my marathon a week and a half ago and my race and recovery has been my worst yet. Just wondering if they dropped more and that s why I m feeling these symptoms. [facility] 09-11-2024 Telephone encounter Note Turned into TE and routed to PCP, pt notified. Raven Burton MA [facility] 09-11-2024 Miscellaneous Notes Turned into TE and routed to PCP, pt notified. Raven Burton MA documented in this encounter [facility] 09-11-2024 Telephone encounter Note Pt wrote into the office today with an update regarding her results from [facility] (scanned into chart). Please review message below and advise. Raven Burton MA Pt message: Hi , just wanted to follow up with you regarding the labs I had drawn checking iron, ferritin, iron saturation, and total iron binding capacity. Wanted to check if you received the results I faxed to the office. I double my iron pills to 2 tabs daily and taking with OJ to try and aid with absorption. Recently I have been fatigued, and struggle with energy levels when running. I feel like my body is heavy. I ve not had this happen in the past. Not sure if it s directly related to this? Just wondering what you suggest? What do you think about getting my B12 checked? Just remembered that my Dad had pernicious anemia and he consumed a lot meat/iron rich foods. Just a thought. Thanks, Lorri Smith Drawn on 08/19/24 Iron 31 Total iron binding capacity 378 Iron saturation 8.2% Ferritin 84 [facility] 09-07-2024 Telephone encounter Note Faxed Malou Amador MA [facility] 09-07-2024 Miscellaneous Notes Faxed Malou Amador MA This was signed Wilmar Phillip DO Pt informed. Form placed on JG desk. Malou Amador MA Patient calling to see if office received her fax a healthy living form she needs for her work. She faxed it today at noon or so. She is asking if the office could call her either way to let her know please. Pt calling regarding the followin)form to fill out from her physcial and then fax back. Pt is re-faxing form now. 2. Results of lab work done at [facility]. After review and giving results she is asking if there is anything she needs to do. Please advise pt on all above. Nicolle Carrera LPN documented in this encounter [facility] 09-07-2024 Telephone encounter Note This was signed Wilmar Phillip DO [facility] 08-31-2024 Telephone encounter Note Pt informed. Form placed on JG desk. Malou Amador MA [facility] 08-31-2024 Telephone encounter Note Patient calling to see if office received her fax a healthy living form she needs for her work. She faxed it today at noon or so. She is asking if the office could call her either way to let her know please. [facility] 08-31-2024 Telephone encounter Note Pt calling regarding the followin)form to fill out from her physcial and then fax back. Pt is re-faxing form now. 2. Results of lab work done at [facility]. After review and giving results she is asking if there is anything she needs to do. Please advise pt on all above. Nicolle Carrera LPN [facility] 08-22-2024 Note HNO ID: [id number] Author: WILMAR PHILLIP DO Service: ? Author Type: Physician Type: Progress Notes Filed: 08/24/2024 10:52 Note Text: CC: Hollie Smith is a 43 year old female who presents to the office for physical HPI: Joint pain, hands, chronic, wants to avoid being on chronic NSAIDs and immune modulator medications. Taking natural supplements as needed. ADD, long standing use of adderall intermittently, needing rx refilled. URI symptoms. Sick contacts. Will be traveling for a race upcoming. She is still trying to exercise. Nasal congestion and ear pressure and PND symptoms for the last few days. No fevers or chills. PAST MEDICAL HISTORY Diagnosis Date H/O exercise stress test 02/10/2021 stresst test echo-by Dr. Cole-EF 65% Heart murmur 04/29/2018 Migraine, unspecified, with intractable migraine, so stated, without mention of status migrainosus 2006 Migraine Mitral valve disorders(424.0) 2003 MVP Primary generalised (osteo)arthritis Rheumatoid arthritis (HCC) hands PAST SURGICAL HISTORY Procedure Laterality Date EXCISION GANGLION WRIST DORSAL/VOLAR PRIMARY RIGHT EXTRACTION, ERUPTED TOOTH OR EXPOSED ROOT (ELEVATION AND/OR FORCEPS REMOVAL) WISDOM IUD INSERTION (APPEALS NURSE DEPT)_*FL 04/11/2009 Mirena IUD REMOVAL (APPEALS NURSE DEPT)_*FL 2009 TONSILLECTOMY PRIMARY/SECONDARY Tonsillectomy Social History: Social History Tobacco Use Smoking status: Former Current packs/day: 0.00 Types: Cigarettes Start date: 12/23/2001 Quit date: 12/23/2002 Years since quittin.6 Smokeless tobacco: Never Vaping Use Vaping status: Never Used Substance Use Topics Alcohol use: Yes Comment: RARELY,NOT WHILE Drug use: No FAMILY HISTORY Problem Relation Age of Onset Lipids Mother Diabetes Mother Breast Cancer Mother 67 lumpectomy, slow growing cancer Barretts Esophagus Mother 69 Hypertension Father Cancer Father pancreatic Heart Maternal Grandmother bypass surgery Cancer Paternal Grandmother passed from bone marrow ca Heart Paternal Grandmother Heart Paternal Uncle 2 [place] Current Outpatient prescriptions: Amphetamine-Dextroamphetamine (ADDERALL) 30 mg tablet Take 1 tablet by mouth once daily for 30 days. [START ON 09/15/2024] Amphetamine-Dextroamphetamine (ADDERALL) 30 mg tablet Take 1 tablet by mouth once daily for 30 days. Patient should start on September 15, 2024. [START ON 10/16/2024] Amphetamine-Dextroamphetamine (ADDERALL) 30 mg tablet Take 1 tablet by mouth once daily for 30 days. Patient should start on October 16, 2024. doxycycline (VIBRA-TABS) 100 mg tablet Take 1 tablet by mouth two times a day for 10 days. ofloxacin (FLOXIN) 0.3 % otic solution Use 5 Drops in both ears twice daily. metoprolol tartrate, short acting, (LOPRESSOR) 25 mg tablet tiZANidine (ZANAFLEX) 4 mg tablet Take 1 tablet by mouth every 8 hours as needed (muscle spasms). scopolamine (TRANSDERM-SCOP) patch 1.5 mg/72 hr (delivers 1 mg over 3 days) Apply 1 Patch as directed every 72 hours. Apply patch to skin behind ear 4hrs prior to travel. Allergies: ALLERGIES No Known Allergies ROS: See HPI PE: 08/18/24 1359 BP: 110/70 Pulse: 60 Resp: 12 Temp: 36.7 ?C (98 ?F) TempSrc: Left Tympanic Weight: 57.4 kg (126 lb 8.7 oz) Height: 167 cm (5' 5.75 ) Gen: AANDO, NAD, non-toxic appearing, Pleasant, cooperative HEENT: NT/AC, PERRLA, EOMs intact b/l, nares congested b/l, pharynx without erythema, exudate or lesions. Uvula midline. EACs without erythema or debris. TMs pearly barnes with intact landmarks on right, left TM with serous effusion and erythema without rupture. Neck: supple, No cervical LAD, no thyromegaly, no carotid bruits CV: RRR, normal S1 and S2, no murmurs, no gallops, no rubs, Pulses 2+ and symmetric in UE and LE b/l Lungs: normal respiratory effort, CTA b/l, no wheezing or rhonchi or rales Abd: soft, NT, ND, +BS, no hepatosplenomegaly MS: FROM all 4 extremities Neuro: CN II-XII intact b/l, strength 5/5 b/l UE and LE, DTRs 2/4 UE and LE, sensation intact. Skin: warm, dry, intact, No rashes or lesions on exposed skin. No edema, normal pulses ASSESSMENT/PLAN: 1. Well adult exam - ICD9: V70.0, ICD10: Z00.00 (primary diagnosis) - Counseled on healthy diet and regular exercise - HEMOGLOBIN A1C - CORTISOL, SERUM - INSULIN ASSAY BLOOD - C-PEPTIDE BLD - IRON AND TIBC - FERRITIN 2. Concentration deficit - ICD9: 799.51, ICD10: R41.840 rx refilled, chronic, stable, taking medications as prescribed. - DEXTROAMPHETAMINE-AMPHETAMINE 30 MG TABLET - DEXTROAMPHETAMINE-AMPHETAMINE 30 MG TABLET - DEXTROAMPHETAMINE-AMPHETAMINE 30 MG TABLET 3. Hyperglycemia - ICD9: 790.29, ICD10: R73.9 Labs as ordered. - HEMOGLOBIN A1C - CORTISOL, SERUM - INSULIN ASSAY BLOOD - C-PEPTIDE BLD 4. Left chronic serous otitis media - ICD9: 381.10, ICD10: H65.22 - CONSULT TO ENT 5. Inflammatory arthritis - ICD9: 714.9, (more content not included)... [facility] 08-22-2024 History of Present illness Narrative CC: Hollie Smith is a 43 year old female who presents to the office for physical HPI: Joint pain, hands, chronic, wants to avoid being on chronic NSAIDs and immune modulator medications. Taking natural supplements as needed. ADD, long standing use of adderall intermittently, needing rx refilled. URI symptoms. Sick contacts. Will be traveling for a race upcoming. She is still trying to exercise. Nasal congestion and ear pressure and PND symptoms for the last few days. No fevers or chills. PAST MEDICAL HISTORY Diagnosis Date H/O exercise stress test 02/10/2021 stresst test echo-by Dr. Galvan-EF 65% Heart murmur 04/29/2018 Migraine, unspecified, with intractable migraine, so stated, without mention of status migrainosus 2007 Migraine Mitral valve disorders(424.0) 2003 MVP Primary generalised (osteo)arthritis Rheumatoid arthritis (HCC) hands PAST SURGICAL HISTORY Procedure Laterality Date EXCISION GANGLION WRIST DORSAL/VOLAR PRIMARY RIGHT EXTRACTION, ERUPTED TOOTH OR EXPOSED ROOT (ELEVATION AND/OR FORCEPS REMOVAL) WISDOM IUD INSERTION (APPEALS NURSE DEPT)_*FL 04/11/2009 Mirena IUD REMOVAL (APPEALS NURSE DEPT)_*FL 2009 TONSILLECTOMY PRIMARY/SECONDARY <AGE 14 Tonsillectomy Social History: Social History Tobacco Use Smoking status: Former Current packs/day: 0.00 Types: Cigarettes Start date: 12/23/2001 Quit date: 12/23/2002 Years since quittin.6 Smokeless tobacco: Never Vaping Use Vaping status: Never Used Substance Use Topics Alcohol use: Yes Comment: RARELY,NOT WHILE Drug use: No FAMILY HISTORY Problem Relation Age of Onset Lipids Mother Diabetes Mother Breast Cancer Mother 67 lumpectomy, slow growing cancer Barretts Esophagus Mother 69 Hypertension Father Cancer Father pancreatic Heart Maternal Grandmother bypass surgery Cancer Paternal Grandmother passed from bone marrow ca Heart Paternal Grandmother Heart Paternal Uncle 2 [place]'s Current Outpatient prescriptions: Amphetamine-Dextroamphetamine (ADDERALL) 30 mg tablet Take 1 tablet by mouth once daily for 30 days. [START ON 09/15/2024] Amphetamine-Dextroamphetamine (ADDERALL) 30 mg tablet Take 1 tablet by mouth once daily for 30 days. Patient should start on September 15, 2024. [START ON 10/16/2024] Amphetamine-Dextroamphetamine (ADDERALL) 30 mg tablet Take 1 tablet by mouth once daily for 30 days. Patient should start on October 16, 2024. doxycycline (VIBRA-TABS) 100 mg tablet Take 1 tablet by mouth two times a day for 10 days. ofloxacin (FLOXIN) 0.3 % otic solution Use 5 Drops in both ears twice daily. metoprolol tartrate, short acting, (LOPRESSOR) 25 mg tablet tiZANidine (ZANAFLEX) 4 mg tablet Take 1 tablet by mouth every 8 hours as needed (muscle spasms). scopolamine (TRANSDERM-SCOP) patch 1.5 mg/72 hr (delivers 1 mg over 3 days) Apply 1 Patch as directed every 72 hours. Apply patch to skin behind ear 4hrs prior to travel. Allergies: ALLERGIES No Known Allergies ROS: See HPI PE: 08/18/24 1359 BP: 110/70 Pulse: 60 Resp: 12 Temp: 36.7 C (98 F) TempSrc: Left Tympanic Weight: 57.4 kg (126 lb 8.7 oz) Height: 167 cm (5' 5.75 ) Gen: A&O, NAD, non-toxic appearing, Pleasant, cooperative HEENT: NT/AC, PERRLA, EOMs intact b/l, nares congested b/l, pharynx without erythema, exudate or lesions. Uvula midline. EACs without erythema or debris. TMs pearly barnes with intact landmarks on right, left TM with serous effusion and erythema without rupture. Neck: supple, No cervical LAD, no thyromegaly, no carotid bruits CV: RRR, normal S1 and S2, no murmurs, no gallops, no rubs, Pulses 2+ and symmetric in UE and LE b/l Lungs: normal respiratory effort, CTA b/l, no wheezing or rhonchi or rales Abd: soft, NT, ND, +BS, no hepatosplenomegaly MS: FROM all 4 extremities Neuro: CN II-XII intact b/l, strength 5/5 b/l UE and LE, DTRs 2/4 UE and LE, sensation intact. Skin: warm, dry, intact, No rashes or lesions on exposed skin. No edema, normal pulses ASSESSMENT/PLAN: 1. Well adult exam - ICD9: V70.0, ICD10: Z00.00 (primary diagnosis) - Counseled on healthy diet and regular exercise - HEMOGLOBIN A1C - CORTISOL, SERUM - INSULIN ASSAY BLOOD - C-PEPTIDE BLD - IRON AND TIBC - FERRITIN 2. Concentration deficit - ICD9: 799.51, ICD10: R41.840 rx refilled, chronic, stable, taking medications as prescribed. - DEXTROAMPHETAMINE-AMPHETAMINE 30 MG TABLET - DEXTROAMPHETAMINE-AMPHETAMINE 30 MG TABLET - DEXTROAMPHETAMINE-AMPHETAMINE 30 MG TABLET 3. Hyperglycemia - ICD9: 790.29, ICD10: R73.9 Labs as ordered. - HEMOGLOBIN A1C - CORTISOL, SERUM - INSULIN ASSAY BLOOD - C-PEPTIDE BLD 4. Left chronic serous otitis media - ICD9: 381.10, ICD10: H65.22 - CONSULT TO ENT 5. Inflammatory arthritis - ICD9: 714.9, ICD10: M19.90 F/u with Process Expert as needed Need for anti inflammatory diet. 6. Arthralgia of both hands - ICD9: 719.44, ICD10: M25.541, M25.542 F/u with Process Expert as needed Need for anti inflammatory diet. Wilmar Phillip DO To ER if develops chest pain, shortness of breath, or severe worsening of symptoms. Discussed risks, benefits, alternatives, and potential side effects of medications. Patient expressed understanding and agreed with the plan. Wilmar Phillip DO [address] [place] [address] documented in this encounter [facility] 08-18-2024 Instructions Wilmar Phillip DO - 08/18/2024 2:47 PM EDT Turmeric- curcumin 500-1000 mg 1-2 times a day with a meal Astelin 2 sprays each nostril 1-2 times a day If not better than ENT for eustachian tube dysfunction Mary technique documented in this encounter [facility] 08-16-2024 Note Patient Outreach (IN [facility]) HOLLIE SMITH ([id number]) 1980 F Date Time Provider Department 08/16/24 WILMAR PHILLIP During your visit today, we recorded the following information about you: Allergies As of Date: 08/16/2024 (No Known Allergies) Date Reviewed: 08/16/2023 Reviewed by: Merari Maddox LPN - Fully Assessed Visit Diagnosis:Encounter for screening mammogram for breast cancer [Z12.31] Order(s):[facility] SCREENING [facility] [[id number]] Order #: [id number] FUTURE Prescriptions as of 08/21/2024 - Amphetamine-Dextroamphetamine (ADDERALL) 30 mg tablet Take 1 tablet by mouth once daily for 30 days. - Amphetamine-Dextroamphetamine (ADDERALL) 30 mg tablet Take 1 tablet by mouth once daily for 30 days. Patient should start on September 15, 2024. - Amphetamine-Dextroamphetamine (ADDERALL) 30 mg tablet Take 1 tablet by mouth once daily for 30 days. Patient should start on October 16, 2024. - doxycycline (VIBRA-TABS) 100 mg tablet Take 1 tablet by mouth two times a day for 10 days. - ofloxacin (FLOXIN) 0.3 % otic solution Use 5 Drops in both ears twice daily. - metoprolol tartrate, short acting, (LOPRESSOR) 25 mg tablet - tiZANidine (ZANAFLEX) 4 mg tablet Take 1 tablet by mouth every 8 hours as needed (muscle spasms). - scopolamine (TRANSDERM-SCOP) patch 1.5 mg/72 hr (delivers 1 mg over 3 days) Apply 1 Patch as directed every 72 hours. Apply patch to skin behind ear 4hrs prior to travel. Meds Comments as of 02/05/2021: Vit C, Vit D, Zinc, magnesium, daily multivitamin all OTC.m February 05, 2021 Shiraangie Lou [facility] Problem List As Of Date 08/16/2024 Noted Resolved Dysmenorrhea [N94.6] 06/13/2013 Headache [R51] 11/30/2005 06/13/2013 MITRAL VALVE DISORDER [I05.9] 05/10/2006 Tachycardia, unspecified [R00.0] 05/10/2006 06/13/2013 Predominant disturbance of emotions [R45.89] 10/06/2006 06/13/2013 Migraine without aura [G43.009] 10/20/2007 Intractable migraine [G43.919] 09/10/2015 Well adult exam [Z00.00] 07/30/2017 Encounter for initial prescription of contracep*07/30/2017 Foot pain, bilateral [M79.671, M79.672] 07/30/2017 Arthralgia of multiple joints [M25.50] 08/11/2022 Thyroid nodule [E04.1] 08/11/2022 Hair loss [L65.9] 08/11/2022 Hyperglycemia [R73.9] 08/11/2022 Concentration deficit [R41.840] 08/11/2022 Inflammatory arthritis [M19.90] 08/11/2022 Encounter Status:Closed by ELSA MACIELUSER on 08/21/24 [facility] 07-19-2024 Telephone encounter Note Called spoke with pt gave information provided. Pt voices understanding. [facility] 07-19-2024 Miscellaneous Notes Called spoke with pt gave information provided. Pt voices understanding. This rx cannot be sent until she has an appt with provider. Rx refused, she will need to wait until her upcoming appt. The following approved medication requests have been transmitted electronically. Requested Prescriptions Refused Prescriptions Disp Refills Amphetamine-Dextroamphetamine (ADDERALL) 30 mg tablet 30 tablet 0 Sig: Take 1 tablet by mouth once daily for 30 days. Refused By: JOHNY RAMOS Reason for Refusal: A Refill not appropriate Johny Ramos APRN.CNP The patient has been identified by name and date of : Yes Caregiver verified no other encounters exist for this prescription request: Yes Caregiver confirmed with patient/requestor that no other refills are due, in the near future, with this provider at this time: Yes The last office visit in the department: 08/16/2023 Does the patient have a future office visit with this provider/department: Yes 08/18/2024 Advised pt, per last refill in February, pt was instructed to schedule appt before next refill. Patient states she has scheduled annual appt for 08-18-24 and that was the soonest she could get in with Dr. Phillip. Pt asking office to phone her to let her know if Rx was sent. Requested Prescriptions Pending Prescriptions Disp Refills Amphetamine-Dextroamphetamine (ADDERALL) 30 mg tablet 30 tablet 0 Sig: Take 1 tablet by mouth once daily for 30 days. Gabino Melendrez RN July 18, 2024 9:13 AM documented in this encounter [facility] 07-18-2024 Telephone encounter Note This rx cannot be sent until she has an appt with provider. Rx refused, she will need to wait until her upcoming appt. The following approved medication requests have been transmitted electronically. Requested Prescriptions Refused Prescriptions Disp Refills Amphetamine-Dextroamphetamine (ADDERALL) 30 mg tablet 30 tablet 0 Sig: Take 1 tablet by mouth once daily for 30 days. Refused By: JOHNY RAMOS Reason for Refusal: A Refill not appropriate Johny Ramos APRN.CNP [facility] 07-18-2024 Telephone encounter Note The patient has been identified by name and date of : Yes Caregiver verified no other encounters exist for this prescription request: Yes Caregiver confirmed with patient/requestor that no other refills are due, in the near future, with this provider at this time: Yes The last office visit in the department: 08/16/2023 Does the patient have a future office visit with this provider/department: Yes 08/18/2024 Advised pt, per last refill in February, pt was instructed to schedule appt before next refill. Patient states she has scheduled annual appt for 08-18-24 and that was the soonest she could get in with Dr. Phillip. Pt asking office to phone her to let her know if Rx was sent. Requested Prescriptions Pending Prescriptions Disp Refills Amphetamine-Dextroamphetamine (ADDERALL) 30 mg tablet 30 tablet 0 Sig: Take 1 tablet by mouth once daily for 30 days. Gabino Melendrez RN July 18, 2024 9:13 AM [facility] 03-08-2024 Miscellaneous Notes Called left message as such. Needs an appt prior to next refill. The following approved medication requests have been transmitted electronically. Requested Prescriptions Signed Prescriptions Disp Refills Amphetamine-Dextroamphetamine (ADDERALL) 30 mg tablet 30 tablet 0 Sig: Take 1 tablet by mouth once daily for 30 days. Authorizing Provider: JOHNY RAMOS APRN.CNP PDMP website checked and validated. All prescriptions have been APPROPRIATELY filled. No suspicious activity was identified. 03/08/2024 by Johny Ramos CNP. Patient has been identified by name and date of : Yes, Elizabeth Huerta RN Date 03/08/2024 Time 11:10 am Patient phones for refill(s): Requested Prescriptions Pending Prescriptions Disp Refills Amphetamine-Dextroamphetamine (ADDERALL) 30 mg tablet 30 tablet 0 Sig: Take 1 tablet by mouth once daily for 30 days. Date of last office visit in primary care: 08/16/2023 Date of next office visit in primary care:Offered to schedule follow up. Declined at this time. Will schedule yearly well adult exam at a later time. Patient requests a call once prescription is sent to pharmacy. Ok to leave a message on [employer]. Please advise. Thank you. Elizabeth Huerta RN. documented in this encounter [facility] 01-03-2024 Miscellaneous Notes Pt calls to report that she was advised by [facility] that rx for Adderall 30 mg was not received. Called [facility] to verify and was advised by pharmacist that they did have the rx and it was ready for fern picker. Notified pt of same. Jennifer Salas LPN documented in this encounter [facility] 11-05-2023 Miscellaneous Notes The following approved medication requests have been transmitted electronically. Requested Prescriptions Signed Prescriptions Disp Refills Amphetamine-Dextroamphetamine (ADDERALL) 30 mg tablet 30 tablet 0 Sig: Take 1 tablet by mouth once daily for 30 days. Authorizing Provider: JOHNY RAMOS APRN.CNP PDMP website checked and validated. All prescriptions have been APPROPRIATELY filled. No suspicious activity was identified. 11/05/2023 by Johny Ramos CNP. Patient has been identified by name and date of : Yes Requested Prescriptions Pending Prescriptions Disp Refills Amphetamine-Dextroamphetamine (ADDERALL) 30 mg tablet 30 tablet 0 Sig: Take 1 tablet by mouth once daily for 30 days. RX INSTRUCTIONS: Patient aware RX will be sent to pharmacy. No need to notify patient. Liza Morrissey documented in this encounter [facility] 09-28-2023 Miscellaneous Notes Patient requesting refill . Please call patient once script has been sent to Pharmacy. Requested Prescriptions Pending Prescriptions Disp Refills Amphetamine-Dextroamphetamine (ADDERALL) 30 mg tablet 30 tablet 0 Sig: Take 1 tablet by mouth once daily for 30 days. Last encounter with this provider: 08/16/2023 Next appt: Not scheduled yet Nancy Hansen RN documented in this encounter [facility] 09-10-2023 Miscellaneous Notes Order faxed Malou Amador MA Order placed. Please fax. Thank you, Nicole Ruth APRN.FORCE ADJUSTMENT SUPERVISOR Pt states she would like to have her mammogram completed at [facility] but needs MAMM WITH [facility]. Please place order and fax to [facility]. Please call patient with update. Thank you. documented in this encounter [facility] 08-16-2023 History of Present illness Narrative CC: Hollie Smith is a 42 year old female who presents to the office for physical HPI: Migraine headaches, stable ADD, taking Adderall medication. No SE with medication Getting fasting labs obtained. PAST MEDICAL HISTORY Diagnosis Date H/O exercise stress test 02/10/2021 stresst test echo-by Dr. Galvan-EF 65% Heart murmur 04/29/2018 Migraine, unspecified, with intractable migraine, so stated, without mention of status migrainosus 2006 Migraine Mitral valve disorders(424.0) 2003 MVP Primary generalised (osteo)arthritis Rheumatoid arthritis (HCC) hands PAST SURGICAL HISTORY Procedure Laterality Date EXCISION GANGLION WRIST DORSAL/VOLAR PRIMARY RIGHT EXTRACTION, ERUPTED TOOTH OR EXPOSED ROOT (ELEVATION AND/OR FORCEPS REMOVAL) WISDOM IUD INSERTION (APPEALS NURSE DEPT)_*FL 04/11/2009 Mirena IUD REMOVAL (APPEALS NURSE DEPT)_*FL 2009 TONSILLECTOMY PRIMARY/SECONDARY <AGE 14 Tonsillectomy Social History: Social History Tobacco Use Smoking status: Former Years: 1 Types: Cigarettes Quit date: 12/23/2002 Years since quittin.6 Smokeless tobacco: Never Vaping Use Vaping Use: Never used Substance Use Topics Alcohol use: Yes Comment: RARELY,NOT WHILE Drug use: No FAMILY HISTORY Problem Relation Age of Onset Lipids Mother Diabetes Mother Breast Cancer Mother 67 lumpectomy, slow growing cancer Barretts Esophagus Mother 69 Hypertension Father Cancer Father pancreatic Heart Maternal Grandmother bypass surgery Cancer Paternal Grandmother passed from bone marrow ca Heart Paternal Grandmother Heart Paternal Uncle 2 [place]'s Current Outpatient prescriptions: [START ON 08/30/2023] Amphetamine-Dextroamphetamine (ADDERALL) 30 mg tablet Take 1 tablet by mouth once daily for 30 days. Do not start before August 30, 2023. Amphetamine-Dextroamphetamine (ADDERALL) 30 mg tablet Take 1 tablet by mouth once daily for 30 days. Do not start before July 31, 2023. Amphetamine-Dextroamphetamine (ADDERALL) 30 mg tablet Take 1 tablet by mouth once daily for 30 days. metoprolol tartrate, short acting, (LOPRESSOR) 25 mg tablet tiZANidine (ZANAFLEX) 4 mg tablet Take 1 tablet by mouth every 8 hours as needed (muscle spasms). ofloxacin (FLOXIN) 0.3 % otic solution Use 5 Drops in both ears twice daily. lisdexamfetamine (VYVANSE) 70 mg capsule Take 1 capsule by mouth once daily for 30 days. scopolamine (TRANSDERM-SCOP) patch 1.5 mg/72 hr (delivers 1 mg over 3 days) Apply 1 Patch as directed every 72 hours. Apply patch to skin behind ear 4hrs prior to travel. hydrOXYchloroQUINE (PLAQUENIL) 200 mg tablet Take 1 tablet by mouth once daily. Allergies: ALLERGIES No Known Allergies ROS: See HPI PE: 08/16/23 1311 BP: 130/80 Pulse: 64 Resp: 16 Temp: 36.1 C (97 F) TempSrc: Left Tympanic Weight: 57.2 kg (126 lb) Height: 163.5 cm (5' 4.37 ) Gen: A&O, NAD, non-toxic appearing, Pleasant, cooperative HEENT: NT/AC, PERRLA, EOMs intact b/l, nares clear and patent b/l, pharynx without erythema, exudate or lesions. Uvula midline. EACs without erythema or debris. TMs pearly barnes with intact landmarks b/l. Neck: supple, No cervical LAD, no thyromegaly, no carotid bruits CV: RRR, normal S1 and S2, no murmurs, no gallops, no rubs, Pulses 2+ and symmetric in UE and LE b/l Lungs: normal respiratory effort, CTA b/l, no wheezing or rhonchi or rales Abd: soft, NT, ND, +BS, no hepatosplenomegaly MS: FROM all 4 extremities Neuro: CN II-XII intact b/l, strength 5/5 b/l UE and LE, DTRs 2/4 UE and LE, sensation intact. Skin: warm, dry, intact, No rashes or lesions on exposed skin. No edema, normal pulses ASSESSMENT/PLAN: 1. Well adult exam - ICD9: V70.0, ICD10: Z00.00 (primary diagnosis) - Counseled on healthy diet and regular exercise - Calcium intake with supplements or by diet of 1000 mg/day for under 50, 3589-9721 mg/day for 50+ 2. Concentration deficit - ICD9: 799.51, ICD10: R41.840 Stable, taking Adderall medication Wilmar Phillip DO To ER if develops chest pain, shortness of breath, or severe worsening of symptoms. Discussed risks, benefits, alternatives, and potential side effects of medications. Patient expressed understanding and agreed with the plan. Wilmar Phillip DO [address] [place] [address] documented in this encounter [facility] 05-06-2023 Miscellaneous Notes Order Faxed to [facility] as requested Hope Mackey RN Order signed Wilmar Phillip DO Zayra from [employer] [place] calls and is asking for Compression Stocking. Order printed and placed on provider desk for signature. Please review and advise, Hope Mackey RN documented in this encounter [facility] 04-28-2023 Miscellaneous Notes Ordered. Shiela Abdi PA-C Pt calls to request an rx for two pairs of compression stockings to be escripted to DM. Pt reports she was advised DM prefers to have orders escripted if possible. Pt reports she needs: For both extremities Knee high Compression: 20-30 2 pair This is on the order. Jennifer Salas LPN documented in this encounter [facility] 03-08-2023 History of Present illness Narrative POPULATION HEALTH NAVIGATION OUTREACH Action/FYI RP Outreach: LVM for Patient to call back and schedule DANIELA Consult for Bilateral bunions [M21.611, M21.612] . [phone]. Any agent can assist. Patient Identified by Name and : YES, via MyChart Outreach Outcome/Action Unable to reach patient: Left message Did you use a PCP flex slot to schedule this appointment? No Reason for Outreach Care Gap or Scheduling/Wellness visits Payer: Payor: JOSR / Plan: [facility] / Product Type: PPO / Care Gap Reviewed:: ORQ Reminder: Reminder note to check Health Maintenance for items below Health Maintenance items due: HEPATITIS C SCREENING Never done COVID-19 VACCINE(3 - Booster for Pfizer series) due on 01/08/2022 DTAP,TDAP,TD(3 - Td or Tdap) due on 09/29/2022 MAMMOGRAM Never done DEPRESSION ASSESSMENT Never done Navigation Signature: Seferino Zamora March 08, 2023 1:54 PM documented in this encounter [facility] 02-22-2023 Miscellaneous Notes Order faxed to Dr. Ricardo's office as requested. Hope Mackey RN Order placed. Please fax. Thank you, Nicole Ruth APRN.JERI Pt calling for a podiatry referral. The one she had in the past form [address] Ricardo . Will need to have the referral faxed. She has an apt for 523. DX bunion bilateral foot pain. Please advise pt when this has been done. Nicolle Carrera LPN documented in this encounter [facility] 12-23-2022 Miscellaneous Notes Delayed Rx sent. PDMP website checked and validated. All prescriptions have been APPROPRIATELY filled. No suspicious activity was identified. 12/23/2022 by Nicole Ruth APRN.FORCE ADJUSTMENT SUPERVISOR The following approved medication requests have been transmitted electronically. Requested Prescriptions Signed Prescriptions Disp Refills Amphetamine-Dextroamphetamine (ADDERALL) 30 mg tablet 30 tablet 0 Sig: Take 1 tablet by mouth once daily for 30 days. Do not start before January 07, 2023. Authorizing Provider: NICOLE RUTH APRN.CNP The following approved medication requests have been transmitted electronically. Requested Prescriptions Signed Prescriptions Disp Refills Amphetamine-Dextroamphetamine (ADDERALL) 30 mg tablet 30 tablet 0 Sig: Take 1 tablet by mouth once daily for 30 days. Do not start before January 07, 2023. Authorizing Provider: NICOLE RUTH APRN.CNP Medication being requested to soon. Please put fern picker date on prescription. Also sent a [employer] reminder to call the office to schedule a follow up apt. Nicolle Carrera LPN Patient has been identified by name and date of : Yes, Provider Dr. Phillip Date 12/23/22 Time 7:53 am Patient phones for refill(s): Requested Prescriptions Pending Prescriptions Disp Refills Amphetamine-Dextroamphetamine (ADDERALL) 30 mg tablet 30 tablet 0 Sig: Take 1 tablet by mouth once daily for 30 days. Date of last office visit in primary care: 08/10/23 Last 2 Encounter Wt Readings: Date: Wt: 12/01/2022 58.3 kg (128 lb 9.6 oz) 08/10/2022 56.2 kg (124 lb) Previous labs/tests for medication: Not applicable Thank you. Nicolel Carrera LPN documented in this encounter [facility] 12-09-2022 Miscellaneous Notes The following approved medication requests have been transmitted electronically. Requested Prescriptions Signed Prescriptions Disp Refills Amphetamine-Dextroamphetamine (ADDERALL) 30 mg tablet 30 tablet 0 Sig: Take 1 tablet by mouth once daily for 30 days. Authorizing Provider: JOHNY RAMOS APRN.CNP PDMP website checked and validated. All prescriptions have been APPROPRIATELY filled. No suspicious activity was identified. 12/09/2022 by Johny Ramos CNP. Patient has been identified by name and date of : Patient phones for refill(s): Requested Prescriptions Pending Prescriptions Disp Refills Amphetamine-Dextroamphetamine (ADDERALL) 30 mg tablet [Pharmacy Med Name: DEXTROAMP-AMPHETAMIN 30 MG TAB] 30 tablet 0 Sig: Take 1 tablet by mouth once daily for 30 days. Date of last office visit in primary care: 08/10/22 Last 2 Encounter Wt Readings: Date: Wt: 12/01/2022 58.3 kg (128 lb 9.6 oz) 08/10/2022 56.2 kg (124 lb) Previous labs/tests for medication: Not applicable Please advise. Thank you. Merari Maddox LPN documented in this encounter [facility] 12-01-2022 History of Present illness Narrative Tile Shader offered: Patient declinesRocio Blackmon is a 42 year old who presents for an annual gynecologic exam without complaints. Menses: cycles every 28 days and 4-5 days of flow. Contraception: vasectomy HPV vaccine: No Last Pap: 2018 normal HPV: negative History of abnormal pap: No Last mammogram: 2021 normal Sexually active: Yes Time with current partner: long-term Pain with intercourse: No Postcoital bleeding: No Documentation from previous visit of 11/07/2021 was copied and pasted, documentation has been reviewed and edited as necessary for today's visit. OB History T3 L3 SAB0 IAB0 Ectopic0 Multiple0 Live Births3 [facility] History LMP: 11/17/2022 (Within Days), Having periods Age at Menarche: Age at First : Age at Menopause: [facility] History Comments: Sexual Activity: Yes; Male; spouse with vas Contraception: Vasectomy PAST MEDICAL HISTORY Diagnosis Date H/O exercise stress test 02/10/2021 stresst test echo-by Dr. Galvan-EF 65% Heart murmur 04/29/2018 Migraine, unspecified, with intractable migraine, so stated, without mention of status migrainosus 2007 Migraine Mitral valve disorders(424.0) 2003 MVP Primary generalised (osteo)arthritis Rheumatoid arthritis (HCC) hands PAST SURGICAL HISTORY Procedure Laterality Date EXCISION GANGLION WRIST DORSAL/VOLAR PRIMARY RIGHT EXTRACTION, ERUPTED TOOTH OR EXPOSED ROOT (ELEVATION AND/OR FORCEPS REMOVAL) WISDOM IUD INSERTION (APPEALS NURSE DEPT)_*FL 04/11/2009 Mirena IUD REMOVAL (APPEALS NURSE DEPT)_*FL 2009 TONSILLECTOMY PRIMARY/SECONDARY <AGE 14 Tonsillectomy FAMILY HISTORY Problem Relation Age of Onset Lipids Mother Diabetes Mother Breast Cancer Mother 67 lumpectomy, slow growing cancer Barretts Esophagus Mother 69 Hypertension Father Cancer Father pancreatic Heart Maternal Grandmother bypass surgery Cancer Paternal Grandmother passed from bone marrow ca Heart Paternal Grandmother Heart Paternal Uncle 2 [place]'s SOCIAL HISTORY Social History Tobacco Use Smoking status: Former Years: 1.00 Types: Cigarettes Quit date: 12/23/2002 Years since quittin.9 Smokeless tobacco: Never Vaping Use Vaping Use: Never used Substance Use Topics Alcohol use: Yes Comment: RARELY,NOT WHILE Drug use: No REVIEW OF SYSTEMS Abdomen: No abdominal pain, nausea, vomiting, diarrhea, or constipation. No bloating, early satiety, indigestion, or increased flatulence. Bladder: No dysuria, gross hematuria, urinary frequency, urinary urgency, or incontinence. Breast: No breast lumps, nipple d/c, overlying skin changes, redness or skin retraction. Allergies and current medication updated:Yes EXAM: BP 118/62 Ht 5' 5 (1.65m) Wt 128 lb 9.6 oz (58.3kg) LMP 11/17/2022 BMI 21.40 kg/(m^2). GENERAL: pleasant, female in no apparent distress HEENT: Normocephalic, atraumatic, mucus membranes moist, and no lesions NECK: Supple, full range of motion, no adenopathy, and thyroid normal DERMATOLOGY: Normal, without lesions, non-icteric, and non-hirsute BREAST: soft, non-tender, symmetric, no dominant mass, normal nipple-areolar complex, no lymphadenopathy, and no nipple discharge CHEST: Normal inspiratory effort ABDOMEN: soft, non-tender, and no masses PELVIC: external genitalia normal, normal Bartholin's glands, urethra, Chauvin's glands, no vulvar lesions, no cervical lesions, good vaginal support, physiologic discharge present, normal appearing perineal body and perianal region BIMANUAL: uterus normal size, shape and consistency, no adnexal masses, and non-tender RECTOVAGINAL: deferred. NEURO: alert and oriented x3,exam grossly non-focal EXTREMITIES: normal ASSESSMENT/PLAN: 1) Health maintenance: Pap done with HPV. Mammogram up to date .2021 [facility] Nutrition, exercise and routine health maintenance exams reviewed. Calcium/Vitamin D supplementation information provided. 2) Contraception: vasectomy. Contraceptive options reviewed and information provided. 3) STD screening: Declined STD check. 4) Follow up one year or sooner as needed Diamond Garcia APRN.FORCE ADJUSTMENT SUPERVISOR documented in this encounter [facility] 11-26-2022 Miscellaneous Notes Worked CHELSEA last night and patient requested to see a At [facility] for dermatology referral. Order was faxed over this morning. documented in this encounter [facility] 10-20-2022 Miscellaneous Notes Demo, referral, insurance card, [facility] Pt notified. Silvia Quintanilla Ma Referral placed, please notify patient and fax request Wilmar Phillip DO Pt calling and states she is loosing a lot of hair and would like a referral to Derm Dr. Vidales who she sees for other things. Please advise pt when referral is in place. Nicolle Carrera LPN documented in this encounter [facility] 09-11-2022 Miscellaneous Notes Pt called and is notified of providers results and instructions. Pt voices understanding. Jessie Bullock RN Left message to return call Please inform patient that her thyroid US is normal appearing other than the 2 stable small cysts (one on right side, one on left side). Repeat thyroid US in 1-2 years Wilmar Phillip DO documented in this encounter [facility] 09-03-2022 Miscellaneous Notes Pt informed. Order faxed to [facility]. Malou Darling Ma Adderall sent to pharmacy. Mammogram order placed. Please fax to [facility]. Thank you! PDMP website checked and validated. All prescriptions have been APPROPRIATELY filled. No suspicious activity was identified. 09/03/2022 by Nicole Layne APRN.FORCE ADJUSTMENT SUPERVISOR The following approved medication requests have been transmitted electronically. Requested Prescriptions Signed Prescriptions Disp Refills Amphetamine-Dextroamphetamine (ADDERALL) 30 mg tablet 30 tablet 0 Sig: Take 1 tablet by mouth once daily for 30 days. Authorizing Provider: NICOLE LAYNE APRN.JERI Patient calling and said she tried Vyvanse rx and does not think it works as well as Adderall. Patient was asking to go back on Adderall 30 mg once daily. Patient uses [facility] Retail pharmacy. Aware PCP is out of office until Wednesday. Pending order if wanted. Patient asking for mamm order, she is behind on getting done, she had last one done [facility] 09/2019. Patient wants to have done at [facility] again. Pending order, will needs faxed to [facility]. Please advise documented in this encounter [facility] 08-14-2022 Miscellaneous Notes Patient calls and notified of provider instructions and that prescription for vyvanse was sent to pharmacy. Patient voiced understanding. Hope Mackey RN Left message for patient to return call to office Latisha Ball Cma Conversion of current Adderall to Vyvanse would be to maximum dose of 70mg. The following approved medication requests have been transmitted electronically. Requested Prescriptions Signed Prescriptions Disp Refills lisdexamfetamine (VYVANSE) 70 mg capsule 30 capsule 0 Sig: Take 1 capsule by mouth once daily for 30 days. Authorizing Provider: JOHNY RAMOS APRN.CNP PDMP website checked and validated. All prescriptions have been APPROPRIATELY filled. No suspicious activity was identified. 08/14/2022 by Johny Ramos CNP. Patient phoned to let pcp know, she checked with insurance and they will approve Vyvanse in place of adderall. documented in this encounter [facility] 08-06-2022 Miscellaneous Notes Patient calling asking for refill on muscle relaxer rx, she is having neck pain. Pending rx patient uses [facility] Retail pharmacy. Can leave a message if needed. Please advise Patient has been identified by name and date of : Yes Patient phones for refill(s): Requested Prescriptions Pending Prescriptions Disp Refills tiZANidine (ZANAFLEX) 4 mg tablet 30 tablet 11 Sig: Take 1 tablet by mouth every 8 hours as needed (muscle spasms). Date of last office visit in primary care: 05/21/2022, has appt 08/10/2022 Last 2 Encounter Wt Readings: Date: Wt: 05/21/2022 57.5 kg (126 lb 12.8 oz) 01/29/2022 54.4 kg (120 lb) Previous labs/tests for medication: Not applicable Please advise. Thank you. Kamila Dawn LPN documented in this encounter [facility] 07-20-2022 Miscellaneous Notes PDMP website checked and validated. All prescriptions have been APPROPRIATELY filled. No suspicious activity was identified. 07/20/2022 by Nicole Layne APRN.JERI The following approved medication requests have been transmitted electronically. Requested Prescriptions Signed Prescriptions Disp Refills Amphetamine-Dextroamphetamine (ADDERALL) 30 mg tablet 30 tablet 0 Sig: Take 1 tablet by mouth once daily for 30 days. Authorizing Provider: NICOLE LAYNE APRN.CNP Patient phones requesting refills as follows: Requested Prescriptions Pending Prescriptions Disp Refills Amphetamine-Dextroamphetamine (ADDERALL) 30 mg tablet 30 tablet 0 Sig: Take 1 tablet by mouth once daily for 30 days. Please review and advise. Meghan Gunter LPN documented in this encounter [facility] 07-01-2022 Miscellaneous Notes PDMP website checked and validated. All prescriptions have been APPROPRIATELY filled. No suspicious activity was identified. 07/01/2022 by Nicole Layne APRN.CNP The following approved medication requests have been transmitted electronically. Requested Prescriptions Signed Prescriptions Disp Refills Amphetamine-Dextroamphetamine (ADDERALL) 30 mg tablet 30 tablet 0 Sig: TAKE 1 TABLET BY MOUTH ONCE DAILY Authorizing Provider: NICOLE LAYNE APRN.CNP Patient last visit 05/21/22 Follow up appointment scheduled 08/10/22 Malia Ocampo Ma documented in this encounter [facility] 06-03-2022 Miscellaneous Notes Pt called and is notified of providers results and instructions. Pt voices understanding. Jessie Bullock RN As long as the bleeding has resolved, I don't feel she needs to see Dr. Kate. However, if it returns, we should definitely get his opinion. Johny Ramos APRN.CNP Spoke with pt and she states she only bleed for 2 days and then it stopped. Pt states the bleeding was bright red. She has had not bleeding since then. Pt asking if you feel she still needs to see Dr. Kate. Please advise. Okay to leave a detailed message. Nicolle Carrera LPN Please send consult to Dr. Kate at [facility]. Johny Ramos APRN.CNP Spoke with pt gave information provided. Pt voices understanding.Yes , she would like the consult to go to Dr. Kate. I'd like to see how her stool testing results look. At this point, we just need to continue to monitor the bleeding unless it is a very large amount. I'm going to refer her to see if a colonoscopy would be appropriate. Would she prefer I send her to Dr. Kate, since he is at [facility]? Johny Ramos APRN.JERI Pt informed, verbalized understanding. Pt reports she still has rectal bleeding. Pt asking how to proceed? Please advise Malou Darling Ma Please let Lorri know that I received her abdominal ultrasound results. Everything looks good, no concerns. Her CBC, specifically hemoglobin looks great-is 12.6. Johny Ramos APRN.JERI documented in this encounter [facility] 06-03-2022 Miscellaneous Notes Pt called and is notified of providers message. Pt voices understanding. Jessie Bullock, RN Okay for rx as below, please inform patient Wilmar Phillip, DO The following approved medication requests have been transmitted electronically. Signed Prescriptions Disp Refills scopolamine (TRANSDERM-SCOP) patch 1.5 mg/72 hr (delivers 1 mg over 3 days) 4 Patch 1 Sig: Apply 1 Patch as directed every 72 hours. Apply patch to skin behind ear 4hrs prior to travel. Authorizing Provider: WILMAR PHILLIP DO Pt calling to check status on getting medication below. Pleas advise pt. Nicolle Carrera LPN Pt called and states they will be leaving at the end of the week for a boat excursion and requesting something stronger than dramamine. The dramamine did not work the last time. She was asking for a scopolamine patch medication. Please advise pt. Pt has not been seen for this and was hoping something could be called in. Pharmacy updated. Nicolle Carrera LPN documented in this encounter [facility] 05-21-2022 Miscellaneous Notes Noted, thank you. Johny Ramos APRN.JERI Patient calls to request order for stat US be resent to [facility] because they didn't receive it yet. Re-faxed order for US of abdomen. Called to verify if received. Transferred to central registration and placed on hold with no response. Phone disconnected at 5 pm. Re-faxed request a second time. Elizabeth Huerta RN documented in this encounter [facility] 05-21-2022 History of Present illness Narrative Chief Complaint Patient presents with: Abdominal Pain: lower abdomen started today Diarrhea: Blood in stool 2x HPI Hollie Smith is a 41 year old female who presents here today for Above Complaints. Today: [place] completely fine last night. Had diarrhea x4 today. First time was completely normal. 2nd time looked like red dirt in color, consistency of coffee grounds. 3rd time water was blood tinged and bright red on toilet tissue. 4th was bright red blood. Blood started around noon today. Low abdominal cramping, but not necessarily painful. Appetite is normal, no nausea. No known hemorrhoids. Initially felt she was starting her menstrual cycle, but this is not the case. Past medical history, appointments, medications, allergies reviewed. Previous Medical History PAST MEDICAL HISTORY Diagnosis Date H/O exercise stress test 02/10/2021 stresst test echo-by Dr. Galvan-EF 65% Heart murmur 04/29/2018 Migraine, unspecified, with intractable migraine, so stated, without mention of status migrainosus 2006 Migraine Mitral valve disorders(424.0) 2003 MVP Primary generalised (osteo)arthritis Rheumatoid arthritis (HCC) hands Previous Surgical History PAST SURGICAL HISTORY Procedure Laterality Date EXCISION GANGLION WRIST DORSAL/VOLAR PRIMARY RIGHT EXTRACTION, ERUPTED TOOTH OR EXPOSED ROOT (ELEVATION AND/OR FORCEPS REMOVAL) WISDOM IUD INSERTION (APPEALS NURSE DEPT)_*FL 04/11/2009 Mirena IUD REMOVAL (APPEALS NURSE DEPT)_*FL 2009 TONSILLECTOMY PRIMARY/SECONDARY <AGE 14 Tonsillectomy Family History FAMILY HISTORY Problem Relation Age of Onset Lipids Mother Diabetes Mother Breast Cancer Mother 67 lumpectomy, slow growing cancer Barretts Esophagus Mother 69 Hypertension Father Cancer Father pancreatic Heart Maternal Grandmother bypass surgery Cancer Paternal Grandmother passed from bone marrow ca Heart Paternal Grandmother Heart Paternal Uncle 2 [place]'s Patient Allergies ALLERGIES No Known Allergies Current Medications Current Outpatient Medications on File Prior to Visit Medication Sig hydrOXYchloroQUINE (PLAQUENIL) 200 mg tablet Take 1 tablet by mouth once daily. Amphetamine-Dextroamphetamine (ADDERALL) 30 mg tablet Take 1 tablet by mouth once daily for 30 days. tiZANidine (ZANAFLEX) 4 mg tablet Take 1 tablet by mouth every 8 hours as needed (muscle spasms). No current facility-administered medications on file prior to visit. Social History Social History Tobacco Use Smoking status: Former Smoker Years: 1.00 Types: Cigarettes Quit date: 12/23/2002 Years since quittin.4 Smokeless tobacco: Never Used Vaping Use Vaping Use: Never used Substance Use Topics Alcohol use: Yes Comment: RARELY,NOT WHILE Drug use: No Review of Symptoms REVIEW OF SYSTEMS see HPI, otherwise negative EXAM: BP 102/64 (BP Site: Left Arm, BP Position: Sitting, BP Cuff Size: Regular Adult) Pulse 69 Resp 16 Wt 57.5 kg (126 lb 12.8 oz) LMP 10/15/2021 (Within Days) SpO2 96% BMI 21.10 kg/m General Appearance: Well appearing, alert, in no acute distress, well-hydrated, well nourished. and Thin. Lungs: Lungs clear to auscultation. No wheezing, rhonchi, rales.. Heart: RRR without murmur, gallop, or rubs. No ectopy. Abdomen: Normal abdominal exam, Abdomen soft. Lower abdomen tender to palpation Bowel sounds normal. No masses, organomegaly. Rectal: Negative findings: anus normal, anal sphincter tone normal, Positive findings: small internal hemorrhoid. Health Maintenance List PNEUMOCOCCAL(1 - PCV) Never done HEPATITIS C SCREENING Never done COVID-19 VACCINE(3 - Pfizer risk series) due on 12/11/2021 DTAP,TDAP,TD(3 - Td or Tdap) due on 09/29/2022 PAP TESTING due on 04/29/2023 HPV TESTING due on 04/29/2023 DEPRESSION SCREENING due on 05/06/2023 INFLUENZA Completed HIV SCREENING Completed Data reviewed Previous records, office notes ASSESSMENT/PLAN: 1. Abdominal cramping - ICD9: 789.00, ICD10: R10.9 (primary diagnosis) Suspect colitis origin. R/o contributing causes. Patient is aware of red flag sx requiring ED visit. - US ABDOMEN COMPLETE - FECAL OCCULT BLOOD TEST - ENTERIC BACTERIAL PANEL BY PCR - H PYLORI AG BY EIA,STOOL 2. Diarrhea, unspecified type - ICD9: 787.91, ICD10: R19.7 Suspect colitis origin. R/o contributing causes. Patient is aware of red flag sx requiring ED visit. - US ABDOMEN COMPLETE - FECAL OCCULT BLOOD TEST - ENTERIC BACTERIAL PANEL BY PCR - H PYLORI AG BY EIA,STOOL 3. Rectal bleeding - ICD9: 569.3, ICD10: K62.5 Suspect colitis origin. R/o contributing causes. Patient is aware of red flag sx requiring ED visit. - US ABDOMEN COMPLETE - FECAL OCCULT BLOOD TEST - ENTERIC BACTERIAL PANEL BY PCR - H PYLORI AG BY EIA,STOOL Johny Ramos APRN.CNP Greater than 50% of 35-minute visit spent face to face with patient in counseling and education. documented in this encounter [facility] 05-14-2022 History of Present illness Narrative Outside labs reviewed and sent for scanning. 05/13/2022: WBC 3.8 L (4.4-11) Hgb 12.4 Hct 37.4 Platelets 203 Absolute neutrophil 1.8 L (2.0-7.7) Creatinine 0.75 AST 12 L (15-37) ALT 21 documented in this encounter [facility] 05-07-2022 Miscellaneous Notes Lab order letter has been faxed. Confirmation received. Pau Iqbal MA New letter was placed in the out basket. Please fax. Thanks, Jose Mackey APRN.CNP Karen is calling from [facility] in regards to the lab orders for this patient that Dr. Harden recently entered on May 06 lab orders. They cannot have this electronically signed. They need an order faxed over and needs to have the patient's date of on this and the doctor's signature. Please fax this to [phone]. You do not need to put to anyone's attention. documented in this encounter [facility] 05-06-2022 History of Present illness Narrative Chief complaint: Joint pain HPI: To review, Hollie Smith is a 41 year old female - For 3-5 years, with larger PIP knuckles - In the past 1-2 years, has noted PIP pain bilaterally accompanied by weakness. This leads her to drop things. Pain is worse with activity. Worst in evenings. - In Oct, had covid. - in 03/2021, reports not taking anything for pain-not bad enough to have tried analgesics - No morning stiffness - Hair loss and changes in hair texture (used to be thick, now without heaviness to it). - Also with a lot of palpitations. - 20 lb weight loss x1 year - Going to [place] for vacation in 1 week PAST MEDICAL HISTORY Diagnosis Date H/O exercise stress test 02/10/2021 stresst test echo-by Dr. Galvan-EF 65% Heart murmur 04/29/2018 Migraine, unspecified, with intractable migraine, so stated, without mention of status migrainosus 2006 Migraine Mitral valve disorders(424.0) 2003 MVP Primary generalised (osteo)arthritis Rheumatoid arthritis (HCC) hands PAST SURGICAL HISTORY Procedure Laterality Date EXCIS PRIMARY GANGLION WRIST RIGHT EXTRACTION, ERUPTED TOOTH OR EXPOSED ROOT (ELEVATION AND/OR FORCEPS REMOVAL) WISDOM IUD INSERTION (APPEALS NURSE DEPT)_*FL 04/11/2009 Mirena IUD REMOVAL (APPEALS NURSE DEPT)_*FL 2009 REMOVAL OF TONSILS,<12 Y/O Tonsillectomy ALLERGIES No Known Allergies INTERVAL HISTORY This Team Access Model visit is a virtual encounter. It required patient-provider interaction for the medical decision making as documented below. She took a steroid trial after the KACIE. She denies any improvement of her joint symptoms. Her main concern is decreased hand strength. Pain is worst in the morning and evening. She is not taking anything for pain. Sites of pain: none Joint swelling: fingers EMS: yes, mild and resolves as soon as she starts moving No recent infections. Tolerating meds. Answers for HPI/ROS submitted by the patient on 05/06/2022 Fever : No Recent Unintentional Weight Change: No Eye Pain: No Eye Redness: No Vision Disturbance: No Eye Dryness: No Nose Bleeds: No Sores in your Mouth: No Trouble Swallowing: No Dry Mouth: No Chest Pain: No Leg Swelling: No A Cough: No Shortness of Breath: No Pain with Breathing: No Heartburn: No Abdominal Pain: No Diarrhea: No Black Tarry Stools: No Blood in Urine: No Pain or Burning with Urination: No Joint Pain or Stiffness: Yes Muscle Weakness: Yes Muscle Aches: Yes Joint Swelling: Yes Morning Stiffness in Joints: No A Rash: No Skin Color Changes: No Hair Loss: Yes Nail Changes: No Headaches: No Numbness: No Memory Loss: Yes Swollen Glands: No Current Outpatient Medications Medication Sig Amphetamine-Dextroamphetamine (ADDERALL) 30 mg tablet Take 1 tablet by mouth once daily for 30 days. hydrOXYchloroQUINE (PLAQUENIL) 200 mg tablet Take 1 tablet by mouth once daily. tiZANidine (ZANAFLEX) 4 mg tablet Take 1 tablet by mouth every 8 hours as needed (muscle spasms). No current facility-administered medications for this visit. FAMILY HISTORY Problem Relation Age of Onset Lipids Mother Diabetes Mother Breast Cancer Mother 67 lumpectomy, slow growing cancer Barretts Esophagus Mother 69 Hypertension Father Cancer Father pancreatic Heart Maternal Grandmother bypass surgery Cancer Paternal Grandmother passed from bone marrow ca Heart Paternal Grandmother Heart Paternal Uncle 2 [place]'s M-arthritis, with enlargement of the PIPs and DIPs SOCIAL HISTORY: Lives in [place] with . Works as a nurse at [employer] in [place]. 3 kids, not planning to have more. Oldest (daughter) is graduating HS and planning to study nursing Tobacco use: None Alcohol use: Occasional Drug use: None PHYSICAL EXAM: CONSTITUTIONAL: Well-appearing, in NAD. EYES: No scleral icterus or conjunctivitis NEURO: Awake, alert and oriented Widespread Pain Index: 1 (0-19) Symptoms Severity Scale: 7 (0-12) WPI>7 and SS Scale>5 OR WPI 3-6 and SS Scale >9 consistent with fibromyalgia Labs reviewed and discussed with the patient: *04/22/21 negative hep a/b/c labs Labs done at [facility] on 04/22/2021. Report given to provider for review. TEST RESULTS RANGE WBC 4.4 4.4-11.0 RBC 4.22 4.2-5.4 HGB 12.7 12.0-15.0 HCT 37.7 37-47 PLT 197 150-450 Creatinine,serum 0.76 0.55-1.02 EST GFR 90 >60 EST GFR - AA 109 >60 ALB 4.6 3.2-5.0 AST 13 L 15-37 ALT 24 13-56 Immunoglob A QN 40 L 87-352 Low IgA tTG IGA <2 0-3 0-3 Negative 4-10 weak positive >10 positive *January unremarkable ESR, CRP, ARACELY, RF and CCP *January unremarkable Cr, ALT, AST STUDIES: 04/2021 MRI b/l hands: - mild inflammation of the left thumb without changes in the right hand. *February xray L hand- unremarkable IMPRESSION and PLAN: 1. Inflammatory Arthritis: PIP pain/enlargement. History with non-inflammatory features (worse with activity, worse by the end of the day, no morning stiffness) and exam without synovitis in the setting of a likely maternal family history of jose hand OA. MRI with mild inflammation of the left thumb without changes in the right hand. With some improvement on HCQ. No improvement of hand weakness with steroid trial. -continue HCQ 200 mg daily. R/b/a of med discussed. I explained that HCQ does not increase risk for infection. Potential side effects include GI upset, headache, and retinal toxicity leading to blindness. Given the potential for eye toxicity, she will need an cognos administrator to do a baseline (ie within 2-3 months of starting) and at least annual eye exam thereafter. HCQ eye exam was normal in 12/2021. - Advised taking tylenol up to 3000mg/day as needed for pain. Written instructions provided as a reference. - R/B/A of NSAIDs discussed including potential for GI upset/ulcers, bleeding complications, high blood pressure, kidney dysfunction, liver dysfunction and cardiac issues such as CAD. - referral to hand OT previously placed- she defers scheduling at this time -check labs now- will do order letter to have labs done locally. She will contact me with the fax number. 2. Weight loss: - Discuss with PCP - Consider GI evaluation 3. General health maintenance: - she has received both doses of the covid vaccine - Advised to continue follow-up with PCP for routine health maintenance and malignancy screening RTC in 4-5 months with me, or sooner if needed. Patient was instructed to call if any questions or concerns. Thank you for allowing me to participate in the care of your patient. Visit time was 8 minutes Jose Mackey APRN.CNP documented in this encounter [facility] 03-30-2022 Miscellaneous Notes Pt. informed via My Chart. Merari Maddox LPN She will require an appointment prior to her next refill. Johny Ramos APRN.JERI .The following approved medication requests have been transmitted electronically. Signed Prescriptions Disp Refills Amphetamine-Dextroamphetamine (ADDERALL) 30 mg tablet 30 tablet 0 Sig: Take 1 tablet by mouth once daily for 30 days. MYESHA Class: C-II MAURICIO: No Authorizing Provider: JOHNY RAMOS APRN.CNP PDMP website checked and validated. All prescriptions have been APPROPRIATELY filled. No suspicious activity was identified. 03/30/2022 by Johny Ramos CNP. kacie-- 10/09/21 Next-- Non on the books Last refill--01/29/22 30 with 0 refills Last labs--01/29/22 documented in this encounter [facility] 10-06-2006 History of Past i llness Narrative Problem Noted Date Resolved Date Predominant disturbance of emotions 10/06/2006 06/13/2013 Tachycardia, unspecified 05/10/2006 013 Headache(784.0) 11/30/2005 06/13/2013 Dysmenorrhea 06/13/2013 documented as of this encounter (statuses as of 03/30/2022) [facility] of Past illness Narrative* Problem Noted Date Resolved Date Predominant disturbance of emotions 10/06/2006 06/13/2013 Tachycardia, unspecified 05/10/2006 013 Headache(784.0) 11/30/2005 06/13/2013 Dysmenorrhea 06/13/2013 documented as of this encounter (statuses as of 05/06/2022) [address]2006 History of Past illness Narrative* Problem Noted Date Resolved Date Predominant disturbance of emotions 10/06/2006 06/13/2013 Tachycardia, unspecified 05/10/2006 013 Headache(784.0) 11/30/2005 06/13/2013 Dysmenorrhea 06/13/2013 documented as of this encounter (statuses as of 05/07/2022) [address]2006 History of Past illness Narrative* Problem Noted Date Resolved Date Predominant disturbance of emotions 10/06/2006 06/13/2013 Tachycardia, unspecified 05/10/2006 013 Headache(784.0) 11/30/2005 06/13/2013 Dysmenorrhea 06/13/2013 documented as of this encounter (statuses as of 05/14/2022) [address]2006 History of Past illness Narrative* Problem Noted Date Resolved Date Predominant disturbance of emotions 10/06/2006 06/13/2013 Tachycardia, unspecified 05/10/2006 013 Headache(784.0) 11/30/2005 06/13/2013 Dysmenorrhea 06/13/2013 documented as of this encounter (statuses as of 05/21/2022) [address] History of Past illness Narrative* Problem Noted Date Resolved Date Predominant disturbance of emotions 10/06/2006 06/13/2013 Tachycardia, unspecified 05/10/2006 013 Headache(784.0) 11/30/2005 06/13/2013 Dysmenorrhea 06/13/2013 documented as of this encounter (statuses as of 05/21/2022) [address] History of Past illness Narrative* Problem Noted Date Resolved Date Predominant disturbance of emotions 10/06/2006 06/13/2013 Tachycardia, unspecified 05/10/2006 013 Headache(784.0) 11/30/2005 06/13/2013 Dysmenorrhea 06/13/2013 documented as of this encounter (statuses as of 06/03/2022) [address] History of Past illness Narrative* Problem Noted Date Resolved Date Predominant disturbance of emotions 10/06/2006 06/13/2013 Tachycardia, unspecified 05/10/2006 013 Headache(784.0) 11/30/2005 06/13/2013 Dysmenorrhea 06/13/2013 documented as of this encounter (statuses as of 06/03/2022) [address]2006 History of Past illness Narrative* Problem Noted Date Resolved Date Predominant disturbance of emotions 10/06/2006 06/13/2013 Tachycardia, unspecified 05/10/2006 013 Headache(784.0) 11/30/2005 06/13/2013 Dysmenorrhea 06/13/2013 documented as of this encounter (statuses as of 07/01/2022) [address] History of Past illness Narrative* Problem Noted Date Resolved Date Predominant disturbance of emotions 10/06/2006 06/13/2013 Tachycardia, unspecified 05/10/2006 013 Headache(784.0) 11/30/2005 06/13/2013 Dysmenorrhea 06/13/2013 documented as of this encounter (statuses as of 07/13/2022) [address] History of Past illness Narrative* Problem Noted Date Resolved Date Predominant disturbance of emotions 10/06/2006 06/13/2013 Tachycardia, unspecified 05/10/2006 013 Headache(784.0) 11/30/2005 06/13/2013 Dysmenorrhea 06/13/2013 documented as of this encounter (statuses as of 07/20/2022) [address] History of Past illness Narrative* Problem Noted Date Resolved Date Predominant disturbance of emotions 10/06/2006 06/13/2013 Tachycardia, unspecified 05/10/2006 013 Headache(784.0) 11/30/2005 06/13/2013 Dysmenorrhea 06/13/2013 documented as of this encounter (statuses as of 08/06/2022) [address] History of Past illness Narrative* Problem Noted Date Resolved Date Predominant disturbance of emotions 10/06/2006 06/13/2013 Tachycardia, unspecified 05/10/2006 013 Headache(784.0) 11/30/2005 06/13/2013 Dysmenorrhea 06/13/2013 documented as of this encounter (statuses as of 08/14/2022) [address]2006 History of Past illness Narrative* Problem Noted Date Resolved Date Predominant disturbance of emotions 10/06/2006 06/13/2013 Tachycardia, unspecified 05/10/2006 013 Headache(784.0) 11/30/2005 06/13/2013 Dysmenorrhea 06/13/2013 documented as of this encounter (statuses as of 09/03/2022) [address]2006 History of Past illness Narrative* Problem Noted Date Resolved Date Predominant disturbance of emotions 10/06/2006 06/13/2013 Tachycardia, unspecified 05/10/2006 013 Headache(784.0) 11/30/2005 06/13/2013 Dysmenorrhea 06/13/2013 documented as of this encounter (statuses as of 09/11/2022) [address]2006 History of Past illness Narrative* Problem Noted Date Resolved Date Predominant disturbance of emotions 10/06/2006 06/13/2013 Tachycardia, unspecified 05/10/2006 013 Headache(784.0) 11/30/2005 06/13/2013 Dysmenorrhea 06/13/2013 documented as of this encounter (statuses as of 10/20/2022) [address]2006 History of Past illness Narrative* Problem Noted Date Resolved Date Predominant disturbance of emotions 10/06/2006 06/13/2013 Tachycardia, unspecified 05/10/2006 013 Headache(784.0) 11/30/2005 06/13/2013 Dysmenorrhea 06/13/2013 documented as of this encounter (statuses as of 11/27/2022) [address]2006 History of Past illness Narrative* Problem Noted Date Resolved Date Predominant disturbance of emotions 10/06/2006 06/13/2013 Tachycardia, unspecified 05/10/2006 013 Headache(784.0) 11/30/2005 06/13/2013 Dysmenorrhea 06/13/2013 documented as of this encounter (statuses as of 12/01/2022) [address]2006 History of Past illness Narrative* Problem Noted Date Resolved Date Predominant disturbance of emotions 10/06/2006 06/13/2013 Tachycardia, unspecified 05/10/2006 013 Headache(784.0) 11/30/2005 06/13/2013 Dysmenorrhea 06/13/2013 documented as of this encounter (statuses as of 12/10/2022) [address]2006 History of Past illness Narrative* Problem Noted Date Resolved Date Predominant disturbance of emotions 10/06/2006 06/13/2013 Tachycardia, unspecified 05/10/2006 013 Headache(784.0) 11/30/2005 06/13/2013 Dysmenorrhea 06/13/2013 documented as of this encounter (statuses as of 12/23/2022) [address]2006 History of Past illness Narrative* Problem Noted Date Resolved Date Predominant disturbance of emotions 10/06/2006 06/13/2013 Tachycardia, unspecified 05/10/2006 013 Headache(784.0) 11/30/2005 06/13/2013 Dysmenorrhea 06/13/2013 documented as of this encounter (statuses as of 02/22/2023) [address]2006 History of Past illness Narrative* Problem Noted Date Resolved Date Predominant disturbance of emotions 10/06/2006 06/13/2013 Tachycardia, unspecified 05/10/2006 013 Headache(784.0) 11/30/2005 06/13/2013 Dysmenorrhea 06/13/2013 documented as of this encounter (statuses as of 03/08/2023) [address]2006 History of Past illness Narrative* Problem Noted Date Resolved Date Predominant disturbance of emotions 10/06/2006 06/13/2013 Tachycardia, unspecified 05/10/2006 013 Headache(784.0) 11/30/2005 06/13/2013 Dysmenorrhea 06/13/2013 documented as of this encounter (statuses as of 04/28/2023) [address]2006 History of Past illness Narrative* Problem Noted Date Resolved Date Predominant disturbance of emotions 10/06/2006 06/13/2013 Tachycardia, unspecified 05/10/2006 013 Headache(784.0) 11/30/2005 06/13/2013 Dysmenorrhea 06/13/2013 documented as of this encounter (statuses as of 05/06/2023) [address]2006 History of Past illness Narrative* Problem Noted Date Diagnosed Date Resolved Date Predominant disturbance of emotions 10/06/2006 06/13/2013 Tachycardia, unspecified 05/10/2006 Headache(784.0) 11/30/2005 06/13/2013 Dysmenorrhea 06/13/2013 documented as of this encounter (statuses as of 08/16/2023) [address]2006 History of Past illness Narrative* Problem Noted Date Diagnosed Date Resolved Date Predominant disturbance of emotions 10/06/2006 06/13/2013 Tachycardia, unspecified 05/10/2006 Headache(784.0) 11/30/2005 06/13/2013 Dysmenorrhea 06/13/2013 documented as of this encounter (statuses as of 08/23/2023) [address]2006 History of Past illness Narrative* Problem Noted Date Diagnosed Date Resolved Date Predominant disturbance of emotions 10/06/2006 06/13/2013 Tachycardia, unspecified 05/10/2006 Headache(784.0) 11/30/2005 06/13/2013 Dysmenorrhea 06/13/2013 documented as of this encounter (statuses as of 09/22/2023) [address]2006 History of Past illness Narrative* Problem Noted Date Diagnosed Date Resolved Date Predominant disturbance of emotions 10/06/2006 06/13/2013 Tachycardia, unspecified 05/10/2006 Headache(784.0) 11/30/2005 06/13/2013 Dysmenorrhea 06/13/2013 documented as of this encounter (statuses as of 09/30/2023) [address]2006 History of Past illness Narrative* Problem Noted Date Diagnosed Date Resolved Date Predominant disturbance of emotions 10/06/2006 06/13/2013 Tachycardia, unspecified 05/10/2006 Headache(784.0) 11/30/2005 06/13/2013 Dysmenorrhea 06/13/2013 documented as of this encounter (statuses as of 11/06/2023) [address]2006 History of Past illness Narrative* Problem Noted Date Diagnosed Date Resolved Date Predominant disturbance of emotions 10/06/2006 06/13/2013 Tachycardia, unspecified 05/10/2006 Headache(784.0) 11/30/2005 06/13/2013 Dysmenorrhea 06/13/2013 documented as of this encounter (statuses as of 01/03/2024) [facility] History of Past illness Narrative* Problem Noted Date Diagnosed Date Resolved Date Predominant disturbance of emotions 10/06/2006 06/13/2013 Tachycardia, unspecified 05/10/2006 Headache(784.0) 11/30/2005 06/13/2013 Dysmenorrhea 06/13/2013 documented as of this encounter (statuses as of 03/09/2024) [facility] Diagnosis Concentration deficit Attention or concentration deficit [facility] Diagnosis Inflammatory arthritis- Primary Unspecified inflammatory polyarthropathy Encounter for long-term (current) use of medications Encounter for long-term (current) use of other medications [facility] Diagnosis Abdominal cramping- Primary Abdominal pain, unspecified site Diarrhea, unspecified type Rectal bleeding Hemorrhage of rectum and anus [facility] Diagnosis Abdominal cramping- Primary Abdominal pain, unspecified site Diarrhea, unspecified type Rectal bleeding Hemorrhage of rectum and anus [facility] Diagnosis Concentration deficit Attention or concentration deficit [facility] Diagnosis Concentration deficit Attention or concentration deficit [facility] Diagnosis Concentration deficit Attention or concentration deficit [facility] Diagnosis Concentration deficit- Primary Attention or concentration deficit [facility] Diagnosis Screening mammogram for breast cancer- Primary Concentration deficit Attention or concentration deficit [facility] Diagnosis Hair loss- Primary Alopecia, unspecified [facility] Encounter for gynecological examination (general) (routine) without abnormal findings- Primary Screening for cervical cancer Screening for malignant neoplasm of the cervix Encounter for screening for human papillomavirus (HPV) Special screening examination for human papillomavirus (HPV) [facility] Diagnosis Concentration deficit Attention or concentration deficit [facility] Diagnosis Concentration deficit Attention or concentration deficit [facility] Diagnosis Bilateral bunions- Primary Bunion documented in this encounter [facility] note* Diagnosis Foot pain, bilateral- Primary Pain in limb documented in this encounter [facility] note* Diagnosis Well adult exam- Primary Routine general medical examination at a health care facility Concentration deficit Attention or concentration deficit documented in this encounter [facility] note* Diagnosis Encounter for screening mammogram for breast cancer [facility]* Diagnosis Screening mammogram for breast cancer- Primary [facility] Diagnosis Concentration deficit Attention or concentration deficit [facility] Diagnosis Concentration deficit Attention or concentration deficit documented in this encounter [facility] note* Diagnosis Concentration deficit Attention or concentration deficit documented in this encounter [facility] note* Diagnosis Encounter for screening mammogram for breast cancer documented in this encounter [facility] note* Diagnosis Well adult exam- Primary Routine general medical examination at a [facility] facility Concentration deficit Attention or concentration deficit Hyperglycemia Other abnormal glucose Left chronic serous otitis media Simple or unspecified chronic serous otitis media Inflammatory arthritis Unspecified inflammatory polyarthropathy Arthralgia of both hands documented in this encounter [facility] note* Diagnosis Anemia, unspecified type- Primary documented in this encounter [facility] for referral (narrative)* Diagnostic Procedure Only (Urgent) - Pending Review Specialty Diagnoses / Procedures Referred By Kaden chirinos Referred To Contact US IMAGING Diagnoses Abdominal cramping Diarrhea, unspecified type Rectal bleeding Procedures US ABDOMEN COMPLETE US ABDOMINAL REAL TIME W/IMAGE DOCUMENTATION Johny Ramos APRN.CNP [address] [place] [address] Us Imaging Referral ID Status Reason Start Date Expiration Date Visits Requested Visits Authorized [id number] Pending Review Auto-Generat ed Referral 05/21/2022 06/20/2023 1 1 [facility] for referral (narrative)* Diagnostic Procedure Only (Routine) - Pending Review Specialty Diagnoses / Procedures Referred By Contac t Referred To Contact BR IMAGING Diagnoses Screening mammogram for breast cancer Procedures KAYCEE SCREENING W KEV SCREENING DIGITAL BREAST TOMOSYNTHESIS BI SCREENING MAMMOGRAPHY BI 2-VIEW BREAST INC CAD Nicole Layne APRN.FORCE ADJUSTMENT SUPERVISOR [address] [place] [address] [facility] [address] [place] [address] Referral ID Status Reason Start Date Expiration Date Visits Requested Visits Authorized [id number] Pending Review Auto-Generat ed Referral 2 10/03/2023 1 [facility] Diagnostic Procedure Only (Routine) - Pending Review Specialty Diagnoses / Procedures Referred By Kaden t Referred To Contact BR IMAGING Diagnoses Encounter for screening mammogram for breast cancer Procedures KAYCEE SCREENING SCREENING MAMMOGRAPHY BI 2-VIEW BREAST INC CAD Wilmar Phillip DO [address] [place] [address] [facility] [address] [place] [address] Referral ID Status Reason Start Date Expiration Date Visits Requested Visits Authorized [id number] Pending Review Auto-Generat ed Referral 08/18/2023 09/16/2024 1 1 [facility] Diagnostic Procedure Only (Routine) - Pending Review Specialty Diagnoses / Procedures Referred By Contac t Referred To Contact BR IMAGING Diagnoses Screening mammogram for breast cancer Procedures KAYCEE SCREENING W KEV SCREENING DIGITAL BREAST TOMOSYNTHESIS BI SCREENING MAMMOGRAPHY BI 2-VIEW BREAST INC CAD Nicole Ruth APRN.FORCE ADJUSTMENT SUPERVISOR [address] [place] [address] [facility] [address] [place] [address] Referral ID Status Reason Start Date Expiration Date Visits Requested Visits Authorized [id number] Pending Review Auto-Generat ed Referral 3 10/08/2024 1 [facility] Diagnostic Procedure Only (Routine) - New Request Specialty Diagnoses / Procedures Referred By Contac t Referred To Contact BR IMAGING Diagnoses Encounter for screening mammogram for breast cancer Procedures KAYCEE SCREENING W KEV SCREENING DIGITAL BREAST TOMOSYNTHESIS BI SCREENING MAMMOGRAPHY BI 2-VIEW BREAST INC CAD Wilmar Phillip DO [address] [place] [address] [facility] [address] [place] [address] Referral ID Status Reason Start Date Expiration Date Visits Requested Visits Authorized [id number] New Request Auto-Generat ed Referral 08/16/2024 09/15/2025 1 1 [facility] Reason for Referral Specialty Diagnoses / Procedures Referred By Contac t Referred To Contact General Surgery Diagnoses Abdominal cramping Diarrhea, unspecified type Rectal bleeding Procedures CONSULT TO GENERAL SURGERY OFFICE/OUTPATIENT NEW [facility] MDM 60-74 MINUTES Johny Ramos APRN.FORCE ADJUSTMENT SUPERVISOR [address] [place] [address] Referral ID Status Reason Start Date Expiration Date Visits Requested Visits Authorized [id number] Authorized PCP Requested Referral 05/22/2022 05/22/2023 1 1 Specialty Diagnoses / Procedures Referred By Contac t Referred To Contact Dermatology Diagnoses Hair loss Procedures CONSULT TO DERMATOLOGY Wilmar Phillip DO [address] [place] [address] Referral ID Status Reason Start Date Expiration Date Visits Requested Visits Authorized [id number] Ref Not Required PCP Requested Referral 2 10/20/2023 1 1 Specialty Diagnoses / Procedures Referred By Contac t Referred To Contact Podiatry Diagnoses Bilateral bunions Procedures CONSULT TO PODIATRY OFFICE/OUTPATIENT NEW HIGH MDM 60-74 MINUTES Nicole Ruth APRN.FORCE ADJUSTMENT SUPERVISOR [address] [place] [address] Referral ID Status Reason Start Date Expiration Date Visits Requested Visits Authorized [id number] Authorized PCP Requested Referral 02/22/2023 02/22/2024 1 1 Specialty Diagnoses / Procedures Referred By Kaden chirinos Referred To Contact Ent - Otolaryngology Diagnoses Left chronic serous otitis media Procedures CONSULT TO ENT OFFICE/OUTPATIENT NEW HIGH MDM 60 MINUTES Wilmar Phililp, DO [address] [place] [address] Referral ID Status Reason Start Date Expiration Date Visits Requested Visits Authorized [id number] Authorized PCP Requested Referral 08/18/2024 08/18/2025 1 1 Summary Purpose Family History No Family History Records Found Advance Directives No Advanced Directives Records Found Additional Source Comments Source Comments (unrecognize d section and content) In the event this informatio n is protected by the Federal Confidentiality of Alcohol and Drug Abuse Patient Records regulations: The Federal rules restrict any use of the information to criminally investigate or prosecute any alcohol or drug abuse patient.[facility] event this information is protected by the Federal Confidentiality of Alcohol and Drug Abuse Patient Records regulations: The Federal rules restrict any use of the information to criminally investigate or prosecute any alcohol or drug abuse patient.[facility] the event this information is protected by the Federal Confidentiality of Alcohol and Drug Abuse Patient Records regulations: The Federal rules restrict any use of the information to criminally investigate or prosecute any alcohol or drug abuse patient.[facility] the event this information is protected by the Federal Confidentiality of Alcohol and Drug Abuse Patient Records regulations: The Federal rules restrict any use of the information to criminally investigate or prosecute any alcohol or drug abuse patient.[facility] the event this information is protected by the Federal Confidentiality of Alcohol and Drug Abuse Patient Records regulations: The Federal rules restrict any use of the information to criminally investigate or prosecute any alcohol or drug abuse patient.[facility] the event this information is protected by the Federal Confidentiality of Alcohol and Drug Abuse Patient Records regulations: The Federal rules restrict any use of the information to criminally investigate or prosecute any alcohol or drug abuse patient.[facility] the event this information is protected by the Federal Confidentiality of Alcohol and Drug Abuse Patient Records regulations: The Federal rules restrict any use of the information to criminally investigate or prosecute any alcohol or drug abuse patient.[facility] the event this information is protected by the Federal Confidentiality of Alcohol and Drug Abuse Patient Records regulations: The Federal rules restrict any use of the information to criminally investigate or prosecute any alcohol or drug abuse patient.[facility] the event this information is protected by the Federal Confidentiality of Alcohol and Drug Abuse Patient Records regulations: The Federal rules restrict any use of the information to criminally investigate or prosecute any alcohol or drug abuse patient.[facility] the event this information is protected by the Federal Confidentiality of Alcohol and Drug Abuse Patient Records regulations: The Federal rules restrict any use of the information to criminally investigate or prosecute any alcohol or drug abuse patient.[facility] the event this information is protected by the Federal Confidentiality of Alcohol and Drug Abuse Patient Records regulations: The Federal rules restrict any use of the information to criminally investigate or prosecute any alcohol or drug abuse patient.[facility] the event this information is protected by the Federal Confidentiality of Alcohol and Drug Abuse Patient Records regulations: The Federal rules restrict any use of the information to criminally investigate or prosecute any alcohol or drug abuse patient.[facility] the event this information is protected by the Federal Confidentiality of Alcohol and Drug Abuse Patient Records regulations: The Federal rules restrict any use of the information to criminally investigate or prosecute any alcohol or drug abuse patient.[facility] the event this information is protected by the Federal Confidentiality of Alcohol and Drug Abuse Patient Records regulations: The Federal rules restrict any use of the information to criminally investigate or prosecute any alcohol or drug abuse patient.[facility] the event this information is protected by the Federal Confidentiality of Alcohol and Drug Abuse Patient Records regulations: The Federal rules restrict any use of the information to criminally investigate or prosecute any alcohol or drug abuse patient.[facility] the event this information is protected by the Federal Confidentiality of Alcohol and Drug Abuse Patient Records regulations: The Federal rules restrict any use of the information to criminally investigate or prosecute any alcohol or drug abuse patient.[facility] the event this information is protected by the Federal Confidentiality of Alcohol and Drug Abuse Patient Records regulations: The Federal rules restrict any use of the information to criminally investigate or prosecute any alcohol or drug abuse patient.[facility] the event this information is protected by the Federal Confidentiality of Alcohol and Drug Abuse Patient Records regulations: The Federal rules restrict any use of the information to criminally investigate or prosecute any alcohol or drug abuse patient.[facility] the event this information is protected by the Federal Confidentiality of Alcohol and Drug Abuse Patient Records regulations: The Federal rules restrict any use of the information to criminally investigate or prosecute any alcohol or drug abuse patient.[facility] the event this information is protected by the Federal Confidentiality of Alcohol and Drug Abuse Patient Records regulations: The Federal rules restrict any use of the information to criminally investigate or prosecute any alcohol or drug abuse patient.[facility] the event this information is protected by the Federal Confidentiality of Alcohol and Drug Abuse Patient Records regulations: The Federal rules restrict any use of the information to criminally investigate or prosecute any alcohol or drug abuse patient.[facility] the event this information is protected by the Federal Confidentiality of Alcohol and Drug Abuse Patient Records regulations: The Federal rules restrict any use of the information to criminally investigate or prosecute any alcohol or drug abuse patient.[facility] the event this information is protected by the Federal Confidentiality of Alcohol and Drug Abuse Patient Records regulations: The Federal rules restrict any use of the information to criminally investigate or prosecute any alcohol or drug abuse patient.[facility] the event this information is protected by the Federal Confidentiality of Alcohol and Drug Abuse Patient Records regulations: The Federal rules restrict any use of the information to criminally investigate or prosecute any alcohol or drug abuse patient.[facility] the event this information is protected by the Federal Confidentiality of Alcohol and Drug Abuse Patient Records regulations: The Federal rules restrict any use of the information to criminally investigate or prosecute any alcohol or drug abuse patient.[facility] the event this information is protected by the Federal Confidentiality of Alcohol and Drug Abuse Patient Records regulations: The Federal rules restrict any use of the information to criminally investigate or prosecute any alcohol or drug abuse patient.[facility] the event this information is protected by the Federal Confidentiality of Alcohol and Drug Abuse Patient Records regulations: The Federal rules restrict any use of the information to criminally investigate or prosecute any alcohol or drug abuse patient.[facility] the event this information is protected by the Federal Confidentiality of Alcohol and Drug Abuse Patient Records regulations: The Federal rules restrict any use of the information to criminally investigate or prosecute any alcohol or drug abuse patient.[facility] the event this information is protected by the Federal Confidentiality of Alcohol and Drug Abuse Patient Records regulations: The Federal rules restrict any use of the information to criminally investigate or prosecute any alcohol or drug abuse patient.[facility] the event this information is protected by the Federal Confidentiality of Alcohol and Drug Abuse Patient Records regulations: The Federal rules restrict any use of the information to criminally investigate or prosecute any alcohol or drug abuse patient.[facility] the event this information is protected by the Federal Confidentiality of Alcohol and Drug Abuse Patient Records regulations: The Federal rules restrict any use of the information to criminally investigate or prosecute any alcohol or drug abuse patient.[facility] the event this information is protected by the Federal Confidentiality of Alcohol and Drug Abuse Patient Records regulations: The Federal rules restrict any use of the information to criminally investigate or prosecute any alcohol or drug abuse patient.[facility] the event this information is protected by the Federal Confidentiality of Alcohol and Drug Abuse Patient Records regulations: The Federal rules restrict any use of the information to criminally investigate or prosecute any alcohol or drug abuse patient.[facility]In the event this information is protected by the Federal Confidentiality of Alcohol and Drug Abuse Patient Records regulations: The Federal rules restrict any use of the information to criminally investigate or prosecute any alcohol or drug abuse patient.[facility]In the event this information is protected by the Federal Confidentiality of Alcohol and Drug Abuse Patient Records regulations: The Federal rules restrict any use of the information to criminally investigate or prosecute any alcohol or drug abuse patient.[facility]In the event this information is protected by the Federal Confidentiality of Alcohol and Drug Abuse Patient Records regulations: The Federal rules restrict any use of the information to criminally investigate or prosecute any alcohol or drug abuse patient.[facility]In the event this information is protected by the Federal Confidentiality of Alcohol and Drug Abuse Patient Records regulations: The Federal rules restrict any use of the information to criminally investigate or prosecute any alcohol or drug abuse patient.[facility] Reason for Visit (unrecogniz ed section and content) Reason Onset Date Comments Refill Request 03/30/2022 Reason Comments Inflammatory Arthritis Reason Comments Lab Orders Reason Comments Abdominal Pain lower abdomen starte d today Diarrhea Blood in stool 2x Specialty Diagnoses / Procedures Referred By Contac t Referred To Contact Family Practice / FAMILY MEDICINE Diagnoses Abdominal pain Diarrhea abd pain, diarrhea Procedures OFFICE/OUTPATIENT ESTABLISHED MOD MDM 30-39 MIN 4C EST Johny Ramos, BOILER ROOM OPERATOR.FORCE ADJUSTMENT SUPERVISOR [address] [place] [address] Johny Ramos, BOILER ROOM OPERATOR.FORCE ADJUSTMENT SUPERVISOR [address] [place] [address] Referral ID Status Reason Start Date Expiration Date V isits Requested Visits Authorized [id number] Authorized 05/21/2022 11/21/2022 10 10 Reason Comments Orders Reason Comments requesting medication Reason Comments Results Reason Comments Refill Request Reason Onset Date Comments Refill Request 07/11/2022 Reason Onset Date Comments Refill Request 07/20/2022 Reason Onset Date Comments Refill Request 08/06/2022 Reason Comments Medication Update Reason Comments Patient Question Orders Reason Comments Results Reason Comments referral to Dermatology Reason Comments Patient Update Order was faxed over to [facility] for dermatology referral. Reason Comments [facility] Woman Specialty Diagnoses / Procedures Referred By Contremi t Referred To Contact Gynecology / TOURIST ESCORT Diagnoses Encounter for annual health examination annual Procedures OFFICE/OUTPATIENT ESTABLISHED HIGH MDM 40-54 MIN EST WHI ANNUAL PATIENT PhillipWilmar, DO [address] [place] [address] Diamond Garcia BOILER ROOM OPERATOR.FORCE ADJUSTMENT SUPERVISOR [address] [place] [address] Referral ID Status Reason Start Date Expiration Date V isits Requested Visits Authorized [id number] Authorized 11/25/2022 11/21/2023 99 99 Reason Onset Date Comments Refill Request 12/22/2022 Reason Comments requesting a referral podiatry Reason Comments Compression Stocking Order Reason Comments Yearly Exam Reason Comments Order Request Reason Onset Date Comments Refill Request 09/28/2023 Reason Onset Date Comments Refill Request 11/02/2023 Reason Comments Medication Problem Reason Onset Date Comments Refill Request 03/08/2024 Reason Onset Date Comments Refill Request 07/18/2024 Reason Comments Yearly Exam Reason Comments form/results Care Teams (unrecognized sec tion and content) Service Station Manager Relationship Specialty Start Date End Date Wilmar Phillip, DO [address] [place] [address] PCP - General Family Practice 06/24/15 Service Station Manager Relationship Specialty Start Date End Date Wilmar Phillip, DO [address] [place] [address] PCP - General Family Practice 06/24/15 Service Station Manager Relationship Specialty Start Date End Date Wilmar Phillip, DO [address] [place] [address] PCP - General Family Practice 06/24/15 Service Station Manager Relationship Specialty Start Date End Date Wilmar Phillip, DO [address] [place] [address] PCP - General Family Practice 06/24/15 Service Station Manager Relationship Specialty Start Date End Date Wilmar Phillip, DO [address] [place] [address] PCP - General Family Practice 06/24/15 Service Station Manager Relationship Specialty Start Date End Date Wilmar Phillip, DO [address] [place] [address] PCP - General Family Practice 06/24/15 Service Station Manager Relationship Specialty Start Date End Date Wilmar Phillip, DO [address] [place] [address] PCP - General Family Practice 06/24/15 Service Station Manager Relationship Specialty Start Date End Date Wilmar Phillip, DO [address] [place] [address] PCP - General Family Practice 06/24/15 Service Station Manager Relationship Specialty Start Date End Date Wilmar Phillip, DO [address] [place] [address] PCP - General Family Practice 06/24/15 Service Station Manager Relationship Specialty Start Date End Date Wilmar Phillip, DO [address] [place] [address] PCP - General Family Practice 06/24/15 Service Station Manager Relationship Specialty Start Date End Date Wilmar Phillip, DO [address] [place] [address] PCP - General Family Medicine 06/24/15 Service Station Manager Relationship Specialty Start Date End Date Wilmar Phillip, DO [address] [place] [address] PCP - General Family Medicine 06/24/15 Service Station Manager Relationship Specialty Start Date End Date Wilmar Phillip, DO [address] [place] [address] PCP - General Family Medicine 06/24/15 Service Station Manager Relationship Specialty Start Date End Date Wilmar Phillip, DO [address] [place] [address] PCP - General Family Medicine 06/24/15 Service Station Manager Relationship Specialty Start Date End Date Wilmar Phillip, DO [address] [place] [address] PCP - General Family Medicine 06/24/15 Service Station Manager Relationship Specialty Start Date End Date Wilmar Phillip, DO [address] [place] [address] PCP - General Family Medicine 06/24/15 Service Station Manager Relationship Specialty Start Date End Date Wilmar Phillip, DO [address] [place] [address] PCP - General Family Medicine 06/24/15 Service Station Manager Relationship Specialty Start Date End Date Wilmar Phillip DO [address] [facility] [place] [address] PCP - General Family Medicine 06/24/15 Service Station Manager Relationship Specialty Start Date End Date Wilmar Phillip DO [address] [place] [address] PCP - General Family Medicine 06/24/15 Service Station Manager Relationship Specialty Start Date End Date Wilmar Phillip DO [address] [facility] [place] [address] PCP - General Family Medicine 06/24/15 Service Station Manager Relationship Specialty Start Date End Date Wilmar Phillip DO [address] [facility] [place] [address] PCP - General Family Medicine 06/24/15 Service Station Manager Relationship Specialty Start Date End Date Wilmar Phillip DO [address] [facility] [place] [address] PCP - General Family Medicine 06/24/15 Service Station Manager Relationship Specialty Start Date End Date Wilmar Phillip DO [address] [facility] [place] [address] PCP - General Family Medicine 06/24/15 Service Station Manager Relationship Specialty Start Date End Date Wilmar Phillip DO [address] [facility] [place] [address] PCP - General Family Medicine 06/24/15 Service Station Manager Relationship Specialty Start Date End Date Wilmar Phillip DO [address] [facility] [place] [address] PCP - General Family Medicine 06/24/15 Service Station Manager Relationship Specialty Start Date End Date Wilmar Phillip, [address] [place] [address] PCP - General Family Medicine 06/24/15 Service Station Manager Relationship Specialty Start Date End Date Wilmar Phillip DO [address] [place] [address] PCP - General Family Medicine 06/24/15 Service Station Manager Relationship Specialty Start Date End Date Wilmar Phillip DO [address] [facility] [place] [address] PCP - General Family [facility] 06/24/15 Service Station Manager Relationship Specialty Start Date End Date Wilmar Phillip DO [address] [place] [address] PCP - General Family [facility] 06/24/15 Service Station Manager Relationship Specialty Start Date End Date Wilmar Phillip, [address] [place] [address] PCP - General Family Medicine 06/24/15 INFORMATION SOURCE (unrecogn ized section and content) DATE CREATED AUTHOR 09/17/2024 [facility] FOR RECORDS PERTAINING TO PATIENTS WHO ARE OR HAVE BEEN ENROLLED IN A CHEMICAL DEPENDENCY/SUBSTANCEABUSE PROGRAM, SOME INFORMATION MAY BE OMITTED. This clinical summary was aggregated from multiple sources. Caution should be exercised in using it in the provision of clinical care. This summary normalizes information from multiple sources, and as a consequence, information in this document may materially change the coding, format and clinical context of patient data. In addition, data may be omitted in some cases. CLINICAL DECISIONS SHOULD BE BASED ON THE PRIMARY CLINICAL RECORDS. [employer] [facility]. provides no warranty or guarantee of the accuracy or completeness of information in this document.
[2024-09-18 08:50] LABS: Absolute Lymphocyte Count 1.57 X10^3/uL (0.83-4.51); Absolute Neutrophil Count 2.7 X10^3/uL (2.0-7.7); Basophil# 0.05 X10^3/uL; Eosinophil# 0.13 X10^3/uL; Eosinophils% 2.7 % (0-5); Hematocrit 35.7 % (37-47); Hemoglobin 11.9 g/dL (12.0-15.0); Lymphocyte # 1.57 X10^3/ul (0.83-4.51); Lymphocyte % 32.8 % (19-41); Mean Corp Hgb Conc 33.3 g/dL (32-36); Mean Corpuscular Hgb 29.6 pg (27.0-32.0); Mean Corpuscular Volume 88.8 fL (81-99); Mean Platelet Vol. 10.6 fl (6.2-12.0); Monocyte# 0.32 X10^3/uL; Monocyte% 6.7 % (0-10); NRBC Flagged by Analyzer 0 % (0-5); Neutrophil % 56.6 % (47-70); Platelet Count 215 K/mm3 (150-450); RBC Distribution Width CV 12.5 % (11.6-14.6); Red Blood Count 4.02 M/mm3 (4.2-5.4); White Blood Count 4.8 K/mm3 (4.4-11.0)
[2024-09-18 09:15] LABS: Vitamin B12 741 pg/mL (211-911)
== END | disposition home or self-care (01) ==
LOC: LAB 07:40
PROVIDERS: PCP Student in an Organized Health Care Education/Training Program; Referring Provider Student in an Organized Health Care Education/Training Program; Visit Provider Student in an Organized Health Care Education/Training Program
DX: D64.9 Anemia, unspecified (principal)
CPT/HCPCS: 36415; 82607; 85025

== ENCOUNTER → 2024-10-02 | Outpatient (CLI) | payer OTHER, SELFPAY | END | disposition home or self-care (01) | LOC: OPBI 14:05 | PROVIDERS: PCP Student in an Organized Health Care Education/Training Program; Referring Provider Student in an Organized Health Care Education/Training Program; Visit Provider Student in an Organized Health Care Education/Training Program | DX: Z12.31 Encounter for screening mammogram for malignant neoplasm of breast (principal) | CPT/HCPCS: 77063; 77067 ==

== ENCOUNTER → 2025-02-22 | Outpatient (CLI) | payer OTHER, SELFPAY ==
--- NOTE | 2025-02-22 12:03 | US_ITS ---
PROCEDURE: THYROID 02/22/2025 REASON FOR EXAM: THYROMEGALY TECHNIQUE: Thyroid ultrasound COMPARISON: None. FINDINGS: Right thyroid lobe measures 3.7 x 1.4 x 1.1 cm. Left thyroid lobe measures 4.3 x 1.4 x 1.1 cm. Isthmus thickness is0.2 cm. Thyroid Size: Normal Background Echotexture: Homogeneous Thyroid Nodules: No suspicious nodules are identified. Small bilateral colloid cysts. US/Thyroid IMPRESSION: NORMAL THYROID ULTRASOUND Reading Location: [id number]
== END | disposition home or self-care (01) ==
LOC: US 12:02
PROVIDERS: PCP Student in an Organized Health Care Education/Training Program; Referring Provider Student in an Organized Health Care Education/Training Program; Visit Provider Student in an Organized Health Care Education/Training Program
DX: E01.0 Iodine-deficiency related diffuse (endemic) goiter (principal)
CPT/HCPCS: 76536

== ENCOUNTER 2025-03-29 10:10 | Day surgery (SDC) | payer OTHER, SELFPAY ==
--- NOTE | 2025-03-28 15:20 | PAT.ANESEVAL ---
Pre-Assessment Diagnosis/Proposed Procedure Planned Operative Procedure(s): EGD Anesthesia History Anesthesia History - agricultural technical officer: Anesthesia History - agricultural technical officer Hx Hospitalization No 03/28/25 14:49 Any Problems With Anesthesia No 03/28/25 14:49 Cholinesterase deficiency No 03/28/25 14:49 You/Your Family Experience No 03/28/25 14:49 fever (hyperthermia) with Relationship Recent Exposure to Contagious Disease Does patient have nerve No 03/28/25 14:49 stimulator Patient instructed to have device shut off --Does patient have Pacemaker or ICD? When Was Last Pacemaker Check QUESTION #4 FULL TEXT: You/Your Family Experience fever (hyperthermia) with Anesthesia Last Oral Intake Last Oral intake: Last Oral Intake NPO since Meds taken in AM with sips of water? Meds patient instructed to take am of surgery PONV PONV - agricultural technical officer: PONV - agricultural technical officer Female Yes 03/28/25 14:49 HX of Motion Sickness Yes 03/28/25 14:49 HX of N/V After Surgery No 03/28/25 14:49 Non-Smoker Yes 03/28/25 14:49 Duration of Surgery greater No 03/28/25 14:49 than 60 minutes Number of Risk Factors 3 03/28/25 14:49 PONV Score Moderate Risk 03/28/25 14:49 Height & Weight Height & Weight: Anesthesia: Height & Weight Height 5 ft 5 in 03/14/25 13:08 Respiratory Assessment Respiratory Assessment - agricultural technical officer: Respiratory Tract Infection Hx - agricultural technical officer Hx Respiratory Tract Infection No 03/28/25 14:49 STOP Sleep Apnea STOP Sleep Apnea - agricultural technical officer: STOP Sleep Apnea - agricultural technical officer Hx Hypertension No 03/28/25 14:49 Hx Sleep Apnea No 03/28/25 14:49 CPAP BIPAP Do you snore loudly (louder No 03/28/25 14:49 than talking or can be heard Do you often feel tired/ No 03/28/25 14:49 fatigued/ sleepy during daytime? Has anyone observed you stop No 03/28/25 14:49 breathing during sleep? STOP Results Negative 03/28/25 14:49 QUESTION #5 FULL TEXT : Do you snore loudly (louder than talking or can be heard through closed doors)? Tobacco Use History Tobacco Use History - agricultural technical officer: Tobacco Use History - agricultural technical officer Tobacco Use Smoking Status Never smoker 03/28/25 14:49 Hx Tobacco Use No 03/28/25 14:49 Years Smoking Packs Smoked per Day Smoking Cessation Date was within the last 15 years Hx Smoking Cessation Date Hx Smoking Cessation Counseling Hematologic Medial History Hematologic Hx - agricultural technical officer: Hematologic Medical Hx - employment specialist Hx of Blood Transfusion No 03/28/25 14:49 Hx of Transfusion in last 3 No 03/28/25 14:49 Months Date of Last Transfusion (if within last 3 months) Ever experience any problems No 03/28/25 14:49 with transfusion(s)? Specify any problems Hx of Preganancy in last 3 No 03/28/25 14:49 Months Nurse Filling Out Transfusion DSCHRIBER 03/28/25 14:49 & Questions: Date: 03/28/25 03/28/25 14:49 Time: 14:50 03/28/25 14:49 Patient unable to answer at this time (ie. confused, unrespo /Reproduction History /Reproductive History - agricultural technical officer: /Reproductive Hx- agricultural technical officer Hx Now No 03/28/25 14:49 Gestational Age (in weeks): EDC: Hx Hx Para Hx Section SAB No 03/28/25 14:49 PFSH Medical History (Updated 03/28/25 @ 14:54 by Barb Mcbride) Alcohol use Rheumatoid arthritis Low iron Non-smoker History of Holter monitoring Cardiology follow-up encounter History of echocardiogram History of stress test Dysphagia Thyroid nodule Migraine Nonrheumatic mitral valve prolapse Home Medications ?Medication ?Instructions ?Recorded ?Last Taken ?Type multivitamin 1 tab PO QAM 03/30/18 Unknown History dextroamphetamine-amphetamine 30 30 mg PO MOWEFR 06/02/21 Unknown History mg tablet (Adderall) ferrous sulfate 134 mg (27 mg 134 mg PO DAILY 03/14/25 Unknown History iron) tablet omega 2-vfq-bin-fish oil 300 1 cap PO QDAY 03/14/25 Unknown History mg-1,000 mg capsule (Fish Oil) Allergy/AdvReac Type Severity Reaction Status Date / Time No Known Allergies Allergy Verified 03/28/25 14:48 Surgical History H/O excision of ganglion cyst H/O wisdom tooth extraction Social History Smoking Status: Never smoker alcohol intake: current alcohol intake frequency: holidays/special occasions only Alcohol type: beer and wine substance use type: does not use caffeine: Yes Type: coffee Number of servings: 1 Audit: Pertinent Findings Pertinent Findings Echo (EF%) pertinent findings: ECHOCARDIOGRAM 06/09/2021 Interpretation Summary Normal LV size. Left ventricular systolic function is normal. The estimated ejection fraction is 55 %. Mild tricuspid valve insufficiency. Equivocal mitral valve prolapse. Additional pertinent findings: 30 day monitor 11/2023- 12/2023: SR with one run of SVT, but otherwise normal Holter 01/25/2024: 24 hour diary in NSR with occassional PVCs and rare PAC Current Visit Impressions Current Visit Impressions: HOLLIE SMITH, is a 43 F who presents to the office today for an urgent appt for chest pain. She is a lady with a history of occasional palpitations and mitral valve issues. She was evaluated with an echocardiogram which demonstrated preserved ejection fraction, no evidence of mitral valve prolapse and minimal regurgitation. She also underwent stress testing which demonstrated no evidence of ischemia at a high workload of 17.2 metabolic equivalents. She unfortunately contracted COVID and developed brain fog and was put on dextroamphetamine and amphetamines Recommendation Anesthesia Recommendation Anesthesia recommendation: OPTIMIZED for anesthesia
[2025-03-29] VITALS (9 sets, daily range): BP systolic 100–123; BP diastolic 71–87; PULSE 58–69; RESP 16; TEMP 36.2–36.5; O2SAT 97–100; BMI 21.5
[2025-03-29] MEDS: Lactated Ringers 1,000 ML 15 ML IV (10:37)
--- NOTE | 2025-03-29 10:51 | PCM.PRE.AN2 ---
ASA Classification* ASA Classification ASA Classification: 2 Assessment & Plan Anesthesia* Anesthesia Assessment Anesthesia Assessment: Discussed sedation and/or anesthesia options, risks, benefits, and alternatives with patient/parents/legal guardian/POA. Questions invited. The patient/parents/legal guardian/POA seems to understand and agrees to proceed with anesthesia plan. Reviewed the physical assessment, medical history, allergy history and patient home medications list prior to surgery/procedure/anesthetic and documented any changes. Performed airway and anesthesia risk assessments. Anesthesia Type Anesthesia Type: MAC History Source History Obtained from:: Patient and Chart Anesthesia Focused Assessment* Temperature: 97.7 F Pulse Rate: 69 Blood Pressure: 123/87 Respiratory Rate: 16 Pulse Ox: 100 Oxygen Delivery Method: Room Air Airway Assessment Mouth opens: >3 cm Mallampati Score: IV Teeth Condition: Caps/Crowns (Patient has 1 crown on left lower molar. It is tight.) Neck Range of motion (ROM): Full ROM Focused Labs Anesthesia Preop lab: CBC WBC 4.8 K/mm3 (4.4-11.0) 09/18/24 08:00 09/18/24 RBC 4.02 M/mm3 (4.2-5.4) L 09/18/24 08:00 09/18/24 Hgb 11.9 g/dL (12.0-15.0) L 09/18/24 08:00 09/18/24 Hct 35.7 % (37-47) L 09/18/24 08:00 09/18/24 Plt Count 215 K/mm3 (150-450) 09/18/24 08:00 09/18/24 CHEMISTRY Potassium 3.7 mmol/L (3.5-5.1) 07/21/24 11:25 07/21/24 Sodium 137 mmol/L (136-145) 07/21/24 11:25 07/21/24 Magnesium 2.2 mg/dL (1.6-2.6) 06/02/21 14:32 06/02/21 Phosphorus 2.9 mg/dL (2.5-4.9) 07/21/24 11:25 07/21/24 BUN 11 mg/dL (7-18) 07/21/24 11:25 07/21/24 Creatinine 0.75 mg/dL (0.55-1.02) 07/21/24 11:25 07/21/24 Glucose 118 mg/dL (74-106) H 07/21/24 11:25 07/21/24 TSH 0.71 uIU/mL (0.358-3.74) 12/01/22 15:43 12/01/22 COAG Urine Test Negative Negative 07/26/21 09:47 07/26/21 Pre-Assessment Diagnosis/Proposed Procedure Planned Operative Procedure(s): EGD Anesthesia History Anesthesia History - head of academic technology: Anesthesia History - head of academic technology Hx Hospitalization No 03/28/25 14:49 Any Problems With Anesthesia No 03/28/25 14:49 Cholinesterase deficiency No 03/28/25 14:49 You/Your Family Experience No 03/28/25 14:49 fever (hyperthermia) with Relationship Recent Exposure to Contagious No 03/29/25 10:33 Disease Does patient have nerve No 03/28/25 14:49 stimulator Patient instructed to have device shut off --Does patient have Pacemaker No 03/29/25 10:33 or ICD? When Was Last Pacemaker Check QUESTION #4 FULL TEXT: You/Your Family Experience fever (hyperthermia) with Anesthesia Last Oral Intake Last Oral intake: Last Oral Intake NPO since 20:00 03/29/25 10:33 Meds taken in AM with sips of Yes 03/29/25 10:33 water? Meds patient instructed to take am of surgery PONV PONV - head of academic technology: PONV - head of academic technology Female Yes 03/28/25 14:49 HX of Motion Sickness Yes 03/28/25 14:49 HX of N/V After Surgery No 03/28/25 14:49 Non-Smoker Yes 03/28/25 14:49 Duration of Surgery greater No 03/28/25 14:49 than 60 minutes Number of Risk Factors 3 03/28/25 14:49 PONV Score Moderate Risk 03/28/25 14:49 Height & Weight Height & Weight: Anesthesia: Height & Weight Height 5 ft 5 in 03/29/25 10:33 Weight: 58.8 kg 03/29/25 10:33 Body Mass Index (BMI) 21.5 03/29/25 10:33 Respiratory Assessment Respiratory Assessment - head of academic technology: Respiratory Tract Infection Hx - head of academic technology Hx Respiratory Tract Infection No 03/28/25 14:49 STOP Sleep Apnea STOP Sleep Apnea - head of academic technology: STOP Sleep Apnea - head of academic technology Hx Hypertension No 03/28/25 14:49 Hx Sleep Apnea No 03/28/25 14:49 CPAP BIPAP Do you snore loudly (louder No 03/28/25 14:49 than talking or can be heard Do you often feel tired/ No 03/28/25 14:49 fatigued/ sleepy during daytime? Has anyone observed you stop No 03/28/25 14:49 breathing during sleep? STOP Results Negative 03/28/25 14:49 QUESTION #5 FULL TEXT : Do you snore loudly (louder than talking or can be heard through closed doors)? Tobacco Use History Tobacco Use History - head of academic technology: Tobacco Use History - head of academic technology Tobacco Use Smoking Status Never smoker 03/28/25 14:49 Hx Tobacco Use No 03/28/25 14:49 Years Smoking Packs Smoked per Day Smoking Cessation Date was within the last 15 years Hx Smoking Cessation Date Hx Smoking Cessation Counseling Hematologic Medial History Hematologic Hx - head of academic technology: Hematologic Medical Hx - bird raiser Hx of Blood Transfusion No 03/28/25 14:49 Hx of Transfusion in last 3 No 03/28/25 14:49 Months Date of Last Transfusion (if within last 3 months) Ever experience any problems No 03/28/25 14:49 with transfusion(s)? Specify any problems Hx of Preganancy in last 3 No 03/28/25 14:49 Months Nurse Filling Out Transfusion DSCHRIBER 03/28/25 14:49 & Questions: Date: 03/28/25 03/28/25 14:49 Time: 14:50 03/28/25 14:49 Patient unable to answer at this time (ie. confused, unrespo /Reproduction History /Reproductive History - head of academic technology: /Reproductive Hx- head of academic technology Hx Now No 03/28/25 14:49 Gestational Age (in weeks): EDC: Hx Hx Para Hx Section SAB No 03/28/25 14:49 Active Medications Active Medications: Current Medications Generic Name Dose Route Start Last Admin Trade Name Freq PRN Reason Stop Dose Admin Lactated Ringer's 1,000 mls @ 15 mls/hr 03/29/25 10:45 03/29/25 10:37 IV 15 mls/hr .Q48H RAUL Administration PFSH Medical History Alcohol use Rheumatoid arthritis Low iron Non-smoker History of Holter monitoring Cardiology follow-up encounter History of echocardiogram History of stress test Dysphagia Thyroid nodule Migraine Nonrheumatic mitral valve prolapse Home Medications ?Medication ?Instructions ?Recorded ?Last Taken ?Type multivitamin 1 tab PO QAM 03/30/18 03/28/25 History dextroamphetamine-amphetamine 30 30 mg PO MOWEFR 06/02/21 03/28/25 History mg tablet (Adderall) ferrous sulfate 134 mg (27 mg 134 mg PO DAILY 03/14/25 03/28/25 History iron) tablet omega 9-bgz-bhd-fish oil 300 1 cap PO QDAY 03/14/25 03/28/25 History mg-1,000 mg capsule (Fish Oil) Allergy/AdvReac Type Severity Reaction Status Date / Time No Known Allergies Allergy Verified 03/29/25 10:27 Surgical History H/O excision of ganglion cyst H/O wisdom tooth extraction Social History Smoking Status: Never smoker alcohol intake: current alcohol intake frequency: holidays/special occasions only Alcohol type: beer and wine substance use type: does not use caffeine: Yes Type: coffee Number of servings: 1 Review of Systems (Anesthesia) ROS Narrative System reviewed and no additional complaints, except as documented.
[2025-03-29 10:58] LABS: Internal QC Validated? YES +Cl - CLEAR BKGD; Pregnancy, Urine Negative Negative
--- NOTE | 2025-03-29 11:00 | EGD_PTH ---
PATIENT: STEFFANY SMITH LOC: EN U#:[id number] AGE/SX: 44/F ROOM: RE03/29/[address]: Dr. Arslan Gallegos MD : 1980 BED: DIS: 03/29/2025 SPEC #: [id number] RECD: 03/30/25 07:34 STATUS: DANIEL MARKEL #: [id number] CAROLEE: 03/29/25 11:[address]: Arslan Gallegos DEPT: SURGICAL PATHOLOGY RECD BY: Narayan Goldstein ENTERED: 03/30/25 08:52 SP TYPE: EGD BIOPSY LUPILLO DR: Dr. Wilmar Brown DO Tissues: A - Gastric mucous membrane B - COLON BIOPSY C - Gastric fundus D - Esophagus, NOS Procedures: Immunohistochemical Stains Special Stain Group I Surgery Specimen Level IV GMS Stain (control) HEADER OPERATION: EGD biopsy PRE-OP DIAGNOSIS: Dysphagia TISSUE SUBMITTED: A- Antrum biopsy, B- Greater curvature polyp biopsy, C- Gastric polyp fundus biopsy, D- Mid esophagus plaque biopsy MICROSCOPIC DIAGNOSIS A. Stomach, antrum, biopsy: * Antral/transitional mucosa with chronic inflammation. * IHC negative for H pylori organisms. B. Stomach, greater curvature, biopsy: * Oxyntic mucosa with features of reactive gastropathy. * Negative for Helicobacter-like organisms (H&E). C. Stomach, fundus, polyp, biopsy: * Polypoid fragment of oxyntic mucosa with features of reactive gastropathy. D. Mid esophagus, plaque, biopsy: * Squamous mucosa with mild reactive change, negative for eosinophils. * A PASD stain for fungal organisms is pending and will be reported in an addendum. MICROSCOPIC DESCRIPTION Slides are reviewed. All matched controls reacted appropriately. These tests were developed and their performance characteristics determined by [facility]. They may not have been cleared or approved by the U.S. Food and Drug Administration. The FDA has determined that such clearance or approval is not necessary.? The above immunohistochemical/dualISH?markers are ordered and reviewed by the Pathologist. GROSS DESCRIPTION A. Received in formalin in a container labeled with the patient's name, date of , and antrum biopsy are 2 colon-pink fragments of mucosal tissue measuring 0.3 x 0.3 x 0.3 cm and 0.5 x 0.3 x 0.2 cm. Submitted in toto in A1. B. Received in formalin in a container labeled with the patient's name, date of , and greater curvature biopsy are 2 colon-pink fragments of mucosal tissue measuring 0.3 x 0.3 x 0.2 cm and 0.7 x 0.2 x 0.2 cm. Submitted in toto in B1. C. Received in formalin in a container labeled with the patient's name, date of , and gastric polyp fundus biopsy are 2 colon-pink fragments of mucosal tissue each measuring 0.4 x 0.4 x 0.3 cm. Submitted in toto in C1. D. Received in formalin in a container labeled with the patient's name, date of , and mid esophagus plaque biopsy are multiple small fragments of colon-pink mucosal tissue measuring 0.6 x 0.5 x 0.3 cm in aggregate. Submitted in toto in D1. [facility] 03-30-2025 [facility]:[id number] ADDENDUM ADDENDUM ADDENDUM ADDENDUM 04/03/2025 15:50 ADDENDUM 04/03/2025 15:50 ADDENDUM 04/03/2025 15:50 ADDENDUM 04/03/2025 15:50 ADDENDUM 04/03/2025 15:50 This addendum is to report the findings of the PASD stain on part D: D) The PASD stain is negative for fungal organisms.
--- NOTE | 2025-03-29 11:31 | PCM.HP.BLA ---
History and Physical Date of Service: 03/14/25 MR#: [id number] Acct: [id number] Name: HOLLIE SMITH Rep #: [id number] : 1980 Provider: Dr. Arslan Gallegos MD Age/Sex: 44/F Location: [facility] Status: Signed Intake Vital Signs 12/02/2413:15 03/14/2513:08 Height 5 ft 5 in 5 ft 5 in Weight: 130 lb 8 oz BMI 21.7 BP 136/78 H Blood Pressure Location Rt brachial Position Sitting Respiration 18 Pulse 85 Pulse Source Monitor Temp 97.5 F L Temp Source Temporal Pulse Oximetry (%) 100 Oxygen Delivery Method room air Intake Visit Reasons: THYROID/DYSPHAGIA Chief Complaint: thyroid/ dysphagia Is patient in pain?: No Allergies No Known Allergies Allergy (Verified 03/14/25 13:09) Medications ?Medication ?Instructions ?Recorded ?Confirmed ?Type multivitamin 1 tab PO QAM 03/30/18 12/02/23 History dextroamphetamine-amphetamine 30 30 mg PO .COMPLEX 06/02/21 12/02/23 History mg tablet (Adderall) ferrous sulfate 134 mg (27 mg 134 mg PO ONCE 03/14/25 03/14/25 History iron) tablet omega 8-uvx-tzj-fish oil 300 1 cap PO QDAY 03/14/25 03/14/25 History mg-1,000 mg capsule (Fish Oil) [facility] Medical History (Updated 03/14/25 @ 19:[address] Arslan Gallegos MD) Dysphagia Thyroid nodule Migraine Depression Nonrheumatic mitral valve prolapse Surgical History H/O excision of ganglion cyst H/O wisdom tooth extraction Social History Smoking Status: Never smoker alcohol intake: current alcohol intake frequency: holidays/special occasions only Alcohol type: beer and wine substance use type: does not use caffeine: Yes Type: coffee Number of servings: 1 HPI HPI HPI: Patient is a 44-year-old female who presents for primary complaint of dysphagia. They are referred for surgical consultation from Dr. Brown. Patient shares that she has had progressive problems with swallowing for at least the last 1 year. She notes that has become more noticeable and that it is in response to swallowing liquids only (patient confirms that she has no difficulty with swallowing food). She also describes that symptoms seem to get worse as the day wears on. She describes occasional regurgitation of air or fluids but no acid. She does acknowledge some exceedingly infrequent episodes of acid reflux but more specifically estimates this frequency at just a few times per year. She denies any associated bloating or nausea. Mrs. Field denies any new foods or diets. She also denies any history of similar symptoms or prior diagnoses. Mrs. Field denies any history of asthma or allergies. She does confirm a diagnosis of rheumatoid arthritis with symptoms of pain in her hands but the clear she never received benefit when taking medication to treat this condition so she has ceased any treatment. She has never undergone endoscopy. Asked about a family history, Mrs. Smith states that her mother has a diagnosis of Reid's esophagus but she is unaware of any procedures that would have been required for this diagnosis. ROS General General: No weight change, appetite, fatigue, colon cancer, breast cancer or weakness HEENT HEENT: Yes difficulty swallowing; No eye injury, eye surgery, swollen glands or hoarseness Endo Endocrine: No thyroid disease, diabetes mellitus, thyroid cancer, Hair loss, heat intolerance or cold intolerance Skin Skin: No rash or changing moles Musc Musculoskeletal: Yes rheumatoid arthritis; No back problems, arthritis, gout or joint pain Cardio Cardiovascular: No murmur, pacemaker, heart disease, atrial fibrillation, high blood pressure, heart attack, heart stent, palpitations, shortness of breath with exertion or chest pain Psych Psychiatric: No depression, anxiety or hearing voices Resp Respiratory: No shortness of breath, No sleep apnea, No cough, No COPD, No asthma, No emphysema and No wheezing Gastro Gastrointestinal: No abdominal pain, No nausea or vomiting, No diarrhea, No constipation, No blood in stool, Yes acid reflux, No hemorrhoids, No ulcers, No gallbladder problem and No black,tarry stools Nhan Hematologic: No blood thinners, No blood disorders, No bleeding, No anemia and No blood clots Neuro Neurologic: No numbness, No tingling and No weakness Exam Const General: cooperative, comfortable and no acute distress Orientation: alert, awake and oriented x3 Neck Other: Patient has mildly tender thyroid but thyroid itself is of normal proportions and I palpate no nodularity. Further I do not appreciate any cervical lymphadenopathy. Resp Effort & Inspection: normal respiratory effort GI Other: Slender, small fat-containing umbilical hernia present that is nontender, no scars, nondistended, soft, nontender across palpation 4 abdominal quadrants in the epigastric Assessment and Plan Assessment and Plan (1) Dysphagia: Status: Acute Comment: Patient is a 44-year-old female who presents for surgical consultation related to complaint of progressive dysphagia to liquids. Her history is interesting in that she denies any complaints of gastroesophageal reflux disease, nausea, or bloating. When pressed for the location of her discomfort with swallowing she suggest that it is higher in the course of the esophageal phase. She was evaluated for possible thyromegaly but formal ultrasound shows her thyroid to exhibit normal proportions and no thyroid nodularity. I find this to be the case on her exam. Differential here would include possible esophageal web, diverticulum, esophageal stenosis, eosinophilic esophagitis, esophagitis of other cause... Discussed that we could consider EGD versus upper GI with esophagram but recommended the former. Procedure extent was described as well as periprocedural expectations. Patient provided her consent and will be scheduled. I did inform her that if this study was unremarkable I would recommend upper GI with esophagram and reevaluate after those results were formalized. Plan: ? EGD with possible biopsy at first mutually available date ? Possible upper GI with esophagram pending results of the above I have examined the patient and the H&P has been reviewed. There are no clinical changes since date of exam. Plan will be to complete upper endoscopy with biopsies as indicated. Consents were confirmed. Patient denies any further questions. Proceed to endoscopy suite.
--- NOTE | 2025-03-29 12:11 | PCM.POST.ANE ---
Anesthesia: Postop Eval I Current Vital Signs Temperature: 97.5 F Pulse Rate: 64 Blood Pressure: 104/72 Respiratory Rate: 16 Pulse Ox: 98 Oxygen Delivery Method: Room Air Assessment Airway patent: Yes Spontaneous unlabored respirations: Yes Mental status: Asleep nausea: No Vomiting: No Anesthesia Complication: No Fluid Hydration Crystalloid volume administer (ml): 600 Total IV fluid infused: 600 Progress Note Anesthesia document: Postop Eval 1 completed: Yes
--- NOTE | 2025-03-29 12:17 | OP.CCLET_ITS ---
03/29/2025 Wilmar Brown [address] [place] [address] Re : Upper GI endoscopy procedure for Hollie Jovel Dear Dr. Brown This procedure was performed on March. My impressions and recommendations are as follows: Impressions : - No gross lesions in the duodenal bulb, in the first portion of the duodenum and in the second portion of the duodenum. No specimens collected. - Erythematous mucosa in the antrum. Biopsied. - Gastritis. Biopsied. - Two gastric polyps. Biopsied. - Z-line regular, 40 cm from the incisors. No specimens collected. - Multiple plaques in the middle third of the esophagus. Biopsied. Recommendations : - Discharge patient to home (via wheelchair). - Soft diet today. - No aspirin, ibuprofen, naproxen, or other non-steroidal anti-inflammatory drugs for 2 days after biopsy. - Telephone my office for pathology results in 1 week. My findings are described in the full procedure note, which is enclosed. If I can be of further assistance, please feel free to contact me at Doctor phone number(s): , Work: . Sincerely, Arslan Gallegos MD 03/29/2025 12:16:58 PM This report has been signed electronically.
--- NOTE | 2025-03-29 12:17 | OP.EGD_ITS ---
Patient Name: Hollie Jovel Procedure Date: 03/29/2025 11:16 AM Date of : 1980 Age: 44 Procedure: Upper GI endoscopy Indications: Dysphagia Providers: Arslan Gallegos MD Referring MD: Arslan Gallegos MD Medicines: See the Anesthesia note for documentation of the administered medications Patient Profile: Refer to note in patient chart for documentation of history and physical. Complications: No immediate complications. Estimated blood loss: Minimal. Procedure: Pre-Anesthesia Assessment: - The heart rate, respiratory rate, oxygen saturations, blood pressure, adequacy of pulmonary ventilation, and response to care were monitored throughout the procedure. After obtaining informed consent, the endoscope was passed under direct vision. Throughout the procedure, the patient's blood pressure, pulse, and oxygen saturations were monitored continuously. The gastroscope was introduced through the mouth, and advanced to the second part of duodenum. The upper GI endoscopy was accomplished without difficulty. The patient tolerated the procedure well. Scope In: 11:41:49 AM Scope Out: 11:59:55 AM Total Procedure Duration Time 0 hours 18 minutes 6 seconds Findings: No gross lesions were noted in the duodenal bulb, in the first portion of the duodenum and in the second portion of the duodenum. No biopsies or other specimens were collected for this exam. Localized mildly erythematous mucosa without bleeding was found in the gastric antrum. Biopsies were taken with a cold forceps for Helicobacter pylori testing. Localized mild inflammation characterized by congestion (edema), erythema, friability and linear erosions was found on the greater curvature of the stomach. Biopsies were taken with a cold forceps for histology. Estimated blood loss was minimal. Two 3 to 5 mm sessile polyps with no bleeding and no stigmata of recent bleeding were found in the gastric fundus. Biopsies were taken with a cold forceps for histology. Estimated blood loss was minimal. The Z-line was regular and was found 40 cm from the incisors. No biopsies or other specimens were collected for this exam. Multiple 3 to 5 mm plaques were found in the middle third of the esophagus. Biopsies were taken with a cold forceps for histology. Estimated blood loss: 3 mL requiring treatment with coagulation. The exam of the esophagus was otherwise normal. Impression: - No gross lesions in the duodenal bulb, in the first portion of the duodenum and in the second portion of the duodenum. No specimens collected. - Erythematous mucosa in the antrum. Biopsied. - Gastritis. Biopsied. - Two gastric polyps. Biopsied. - Z-line regular, 40 cm from the incisors. No specimens collected. - Multiple plaques in the middle third of the esophagus. Biopsied. Recommendation: - Discharge patient to home (via wheelchair). - Soft diet today. - No aspirin, ibuprofen, naproxen, or other non-steroidal anti-inflammatory drugs for 2 days after biopsy. - Telephone my office for pathology results in 1 week. Procedure Code(s): --- Professional --- 40779, Esophagogastroduodenoscopy, flexible, transoral; with biopsy, single or multiple Diagnosis Code(s): --- Professional --- K31.89, Other diseases of stomach and duodenum K29.70, Gastritis, unspecified, without bleeding K31.7, Polyp of stomach and duodenum K22.89, Other specified disease of esophagus R13.10, Dysphagia, unspecified CPT copyright 2021 [employer]. All rights reserved. The codes documented in this report are preliminary and upon label coder review may be revised to meet current compliance requirements. Arslan Gallegos MD 03/29/2025 12:16:58 PM This report has been signed electronically. Number of Addenda: 0 Note Initiated On: 03/29/2025 11:16 AM
--- NOTE | 2025-03-29 15:33 | PCM.POSTANE2 ---
Anesthesia Postop Eval I Sum Postop Eval Completion status Anesthesia document: Postop Eval 1 completed: Yes Anesthesia Postop Eval I Summary Anesthesia Postop Eval I Summary: Anesthesia Postop Eval I: Assessment Summary Airway patent Yes 03/29/25 12:12 [email or web address] Spontaneous unlabored Yes 03/29/25 12:12 [email or web address] respirations Mental status Asleep 03/29/25 12:12 [email or web address] nausea No 03/29/25 12:12 [email or web address] Vomiting No 03/29/25 12:12 [email or web address] Anesthesia Postop Eval I: Fluid Summary Crystalloid volume administer 600 03/29/25 12:12 [email or web address] (ml) Colloids volume administered ( ml) Blood Product volume administered (ml) Total IV fluid infused 600 03/29/25 12:12 [email or web address] Anesthesia Postop Eval I: Summary Notes Anesthesia Complication No 03/29/25 12:12 [email or web address] Anesthesia Complication Comment: Post-operative progress note Anesthesia: Postop Eval II Evaluation Mental status: Awake and Calm Pain Level: 0 nausea: No Vomiting: No Complications Anesthesia Complication: No
== END 2025-03-29 13:06 | disposition home or self-care (01) ==
LOC: EN 10:10 → AC 10:11
PROVIDERS: Student in an Organized Health Care Education/Training Program; PCP Student in an Organized Health Care Education/Training Program; Referring Provider Surgery; Visit Provider Surgery
PROC: 0DJ08ZZ Inspection of Upper Intestinal Tract, Via Natural or Artificial Opening Endoscopic (ICD-10-PCS; CPT 43235; principal; 2025-03-29 10:55)
DX: K22.89 Other specified disease of esophagus (principal); K31.89 Other diseases of stomach and duodenum; K31.7 Polyp of stomach and duodenum; K29.70 Gastritis, unspecified, without bleeding; R13.10 Dysphagia, unspecified; Z83.79 Family history of other diseases of the digestive system
CPT/HCPCS: 43239; 81025; 88305; 88312; 88342; C1889; J2405

== ENCOUNTER → 2025-05-09 | Outpatient (CLI) | payer OTHER, SELFPAY ==
--- NOTE | 2025-05-09 08:00 | RAD_ITS ---
PROCEDURE: ESOPHAGUS DUAL CONTRAST 05/09/2025 REASON FOR EXAM: DYSPHAGIA TECHNIQUE: The patient ingested barium. Multiple images of the esophagus were obtained. 49 seconds of fluoroscopy. 3.76 mGy. COMPARISON: None FINDINGS: The patient ingested barium. No evidence of esophageal obstruction. No evidence of mass lesion. No evidence of gastroesophageal reflux. The patient ingested a 12 mm tablet the barium without any difficulty. RAD/Esophagus Dual Contrast IMPRESSION: Normal air-contrast esophagram barium swallow. Reading Location: [facility]
== END | disposition home or self-care (01) ==
LOC: RAD 07:55
PROVIDERS: PCP Student in an Organized Health Care Education/Training Program; Referring Provider Surgery; Visit Provider Surgery
DX: R13.10 Dysphagia, unspecified (principal)
CPT/HCPCS: 74221

== ENCOUNTER → 2025-08-24 | Day surgery (SDC) | payer OTHER, SELFPAY ==
[2025-08-24 08:23] VITALS: BP 127/88; PULSE 65; RESP 16; TEMP 36.9; O2SAT 100
[2025-08-24] MEDS: Lidocaine Jelly 2% 20 ML Syringe (URO-JET) 1 APPLIC (08:30)
== END | disposition home or self-care (01) ==
PROVIDERS: PCP Student in an Organized Health Care Education/Training Program; Referring Provider Student in an Organized Health Care Education/Training Program; Visit Provider Surgery
PROC: F00ZJWZ Instrumental Swallowing and Oral Function Assessment using Swallowing Equipment (ICD-10-PCS; CPT 43235; principal; 2025-08-24 07:55)
DX: K21.9 Gastro-esophageal reflux disease without esophagitis (principal)
CPT/HCPCS: 91010

== ENCOUNTER 2025-09-04 12:19 | Outpatient (CLI) | payer OTHER, SELFPAY ==
[2025-09-04 12:51] VITALS: BP 107/69; PULSE 71; RESP 16; TEMP 35.6; O2SAT 100; BMI 20.7
[2025-09-04] MEDS: 0.9% NaCl Peripheral Flush Adult IV (13:00)
[2025-09-04] MEDS: Iron Sucrose Complex (Venofer) 300 MG in 0.9% NaCl 250 ML 176.7 MG IV (13:01)
[2025-09-04] MEDS: 0.9% NaCl IVPB Med Flush (100mL) 15 ML IV (13:01)
[2025-09-04 15:20] VITALS: BP 107/65; PULSE 58; RESP 16; TEMP 36.5; O2SAT 100
== END 2025-09-04 23:59 | disposition home or self-care (01) ==
LOC: MEDOUTP 12:20
PROVIDERS: PCP Student in an Organized Health Care Education/Training Program; Referring Provider Student in an Organized Health Care Education/Training Program; Visit Provider Student in an Organized Health Care Education/Training Program
DX: D50.9 Iron deficiency anemia, unspecified (principal)
CPT/HCPCS: 96365; 96366; J1756; A4216

== ENCOUNTER 2025-09-13 10:33 | Outpatient (CLI) | payer OTHER, SELFPAY ==
[2025-09-13 10:44] VITALS: BP 114/78; PULSE 91; RESP 16; TEMP 36; O2SAT 99; BMI 20.7
[2025-09-13] MEDS: Iron Sucrose Complex (Venofer) 300 MG in 0.9% NaCl 250 ML 176.7 MG IV (10:58)
[2025-09-13] MEDS: 0.9% NaCl IVPB Med Flush (100mL) 15 ML IV (10:59)
[2025-09-13] MEDS: 0.9% NaCl Peripheral Flush Adult IV (11:00)
[2025-09-13 12:51] VITALS: BP 104/62; PULSE 70; RESP 16; TEMP 36.2; O2SAT 100
== END 2025-09-13 23:59 | disposition home or self-care (01) ==
LOC: MEDOUTP 10:33
PROVIDERS: PCP Student in an Organized Health Care Education/Training Program; Referring Provider Student in an Organized Health Care Education/Training Program; Visit Provider Student in an Organized Health Care Education/Training Program
DX: D50.9 Iron deficiency anemia, unspecified (principal)
CPT/HCPCS: 96365; 96366; J1756; A4216

== ENCOUNTER 2025-09-18 14:29 | Outpatient (CLI) | payer OTHER, SELFPAY ==
[2025-09-18 14:39] VITALS: BP 107/62; PULSE 85; RESP 16; TEMP 36.4; O2SAT 99; BMI 20.7
[2025-09-18] MEDS: 0.9% NaCl IVPB Med Flush (100mL) 15 ML IV (14:42)
[2025-09-18] MEDS: Iron Sucrose Complex (Venofer) 300 MG in 0.9% NaCl 250 ML 176.7 MG IV (14:49)
[2025-09-18 16:45] VITALS: BP 116/73; PULSE 70; RESP 16; TEMP 36.3; O2SAT 100
== END 2025-09-18 23:59 | disposition home or self-care (01) ==
LOC: MEDOUTP 14:30
PROVIDERS: PCP Student in an Organized Health Care Education/Training Program; Referring Provider Student in an Organized Health Care Education/Training Program; Visit Provider Student in an Organized Health Care Education/Training Program
DX: D50.9 Iron deficiency anemia, unspecified (principal)
CPT/HCPCS: 96365; 96366; J1756; A4216

== ENCOUNTER → 2025-11-01 | Outpatient (CLI) | payer OTHER, SELFPAY ==
--- NOTE | 2025-11-01 13:03 | BI_ITS ---
EXAM: SCRN MAMM (CAD)W/KEV BILAT DATE: 11/01/2025 CLINICAL HISTORY: F, Age 44 y/o , SCREENING Mother with breast cancer. TECHNIQUE: Procedure Code: [id number] Modality: MG Procedure: SCRN MAMM (CAD)W/KEV BILAT COMPARISON: Prior exam(s) were compared to October 02, 2024. FINDINGS: TISSUE DENSITY: The breasts are extremely dense, which lowers the sensitivity of mammography. Bilateral Breast Mammographic Findings: No significant masses, calcifications or other abnormalities are identified. Stable scattered microcalcifications in the right breast. No focal cluster is seen. No suspicious masses, areas of developing architectural distortion, or suspicious calcifications. There has been no significant interval change. BI/SCRN MAMM (CAD)W/KEV BILAT IMPRESSION: Stable bilateral screening mammogram. OVERALL FINAL ASSESSMENT BI-RADS 2: BENIGN RECOMMENDATION: Routine annual follow-up in 1 Year Additional Recommendation none A letter with findings and recommendations will be mailed to the patient. Reading Location: [facility]
== END | disposition home or self-care (01) ==
PROVIDERS: PCP Student in an Organized Health Care Education/Training Program; Referring Provider Student in an Organized Health Care Education/Training Program; Visit Provider Student in an Organized Health Care Education/Training Program
DX: Z12.31 Encounter for screening mammogram for malignant neoplasm of breast (principal)
CPT/HCPCS: 77063; 77067